=== PATIENT | female | born 1975 | race Caucasian/White ===

== ENCOUNTER 2019-03-06 10:33 | Emergency (ER) | payer MEDICAID, SELFPAY ==
[2019-03-06 10:35] VITALS: BP 105/87; PULSE 90; RESP 17; TEMP 36.6; O2SAT 100; BMI 30.9
--- NOTE | 2019-03-06 10:36 | ED_ITS ---
HPI - Extremity Injury (Upper) General: Chief Complaint: Extremity Problem,Nontraumatic Stated Complaint: Left elbow pain Time Seen by Provider: 03/06/19 10:46 History of Present Illness: HPI narrative: Patient comes in for concerns to due to swelling on the left elbow. Patient was supposed to see Dr. Sam but ended up have to be committed for 48 hours due to a related drug charge. Patient does report history of problems with IV drug use. Patient is routinely cared by behavioral health counseling, and is routinely treated for hypertension along with her mental disorder. Review of Systems General: Reports: 10 or more systems reviewed and unremarkable except in HPI and below Musc: Reports: joint swelling PFSH ED PFSH: Statuses (acute, chronic, etc) shown below reflect problem list status as previously entered and may not be historically accurate Social History Smoking and tobacco status: current every day smoker Physical Exam Const: COMMON NORMALS: no apparent distress and oriented x3 GENERAL APPEARANCE: cooperative HENMT: COMMON NORMALS: normocephalic, external ears normal, EAC's normal, TM's normal bilaterally and external nose normal HEAD & SCALP: normal to inspection and normocephalic FACE & SINUS: normal facial exam NOSE: external nose normal GENERAL EAR: hearing not grossly impaired EXTERNAL EAR: Yes external ears normal EXTERNAL AUDITORY CANAL: EAC's normal TYMPANIC MEMBRANE: TM's normal bilaterally MOUTH: oral and palatal mucosa normal THROAT: posterior oropharynx normal Eye: COMMON NORMALS: PERRL and EOMs intact bilaterally PUPIL: Yes PERRL Neck/C-Spine: COMMON NORMALS: full ROM and no lymphadenopathy Lymph: LYMPHATIC: no lymphedema noted Chest: COMMONS NORMALS: inspection of chest normal and palpation of chest normal Resp: COMMON NORMALS: normal respiratory effort and clear to auscultation bilaterally AUSCULTATION: clear to auscultation bilaterally Cardio: COMMON NORMALS: regular rate and regular rhythm RATE: regular rate RHYTHM: regular rhythm GI: COMMON NORMALS: normal to inspection, nondistended, normoactive bowel sounds and non-tender : COMMON NORMALS: Yes no CVA tenderness BLADDER/KIDNEY EXAM: Yes no CVA tenderness Back/Pelvis: COMMON NORMALS: no CVA tenderness and thoracic and lumbar spine normal to inspection Extremity: COMMON NORMALS: full ROM LEFT UPPER EXTREMITY: Yes elbow joint (olecranon swelling) Neuro: COMMON NORMALS: oriented x3, moves all extremities and no focal motor deficits Psych: COMMON NORMALS: mental status grossly normal and cooperative Skin: COMMON NORMALS: no rashes or lesions noted GENERAL SKIN EXAM: no rashes or lesions noted Procedures Bursa Procedures Side of body: left Site of Procedure: olecranon bursa Antisepsis Used: Chlorhexidine Local Anesthetic: lidocaine 1% Amount of anesthesia used (mL): 1 Fluid obtained (mL): 10 Fluid Type: bloody Patient Tolerated Procedure: well Complications: localized bleeding Course Vital Signs: Vital signs: Vital Signs Temperature 97.8 F 03/06/19 10:35 Pulse Rate 90 03/06/19 10:35 Respiratory Rate 17 03/06/19 10:35 Blood Pressure 105/87 03/06/19 10:35 Pulse Oximetry 94 03/06/19 10:51 MDM - Extremity Injury (Upper) MDM Narrative: Medical decision making narrative: Patient comes in today with complaints of a swelling to the left elbow area. Patient reports hitting her e lbow about 2 weeks ago and had had persistent bursal swelling to the elbow since then. Patient denies any problems with range of motion or strength to the arm. Exam noted to olecranon bursal swelling. No redness no inflammation is noted. Differential diagnosis includes olecranon bursitis, traumatic bursitis, infectious bursitis, septic arthritis. Area was cleaned and then a aspiration of the bursal sac was performed with noticeable bloody tinged fluid. Patient tolerated procedure well recommended Bactrim twice a day for the next 10 days to cover for infection. Recommend monitoring for worsening signs and symptoms and follow-up with primary care as needed. Patient reports understanding agreed to plan. Discharge Plan Discharge Patient Disposition: Home, Self-Care Clinical Impression: Olecranon bursitis of left elbow Condition: Stable Prescriptions: New sulfamethoxazole-trimethoprim [Bactrim DS] 800-160 mg tablet 1 tab PO BID 10 Days Qty: 20 RF: 0 Discharge Orders: Discharge Order (Routine); Ordered 03/06/19 Ordered By: Tay Zhong Referrals: Rita Cobos, RETREAD OPERATOR [Primary Care Provider] - Discharge Diet: Usual diet Discharge Activity: Resume usual activity Activity Restrictions/Additional Instructions: Keep light pressure dressing to area until swelling resolves Light activity to the arm Acetaminophen and ibuprofen for pain Follow-up with primary care in one week Return to ER for high fever, increasing pain and swelling Coding Level of Care Code ED Evening Sitter for Josephine Rehman Exam Problem Focused
[2019-03-06] MEDS: lidocaine 1% INJ 20 mL INTRADERMA (10:50)
[2019-03-06 10:51] VITALS: O2SAT 94
--- NOTE | 2019-03-06 11:07 | ED_ITS ---
HPI - Extremity Problem General: Chief complaint: Extremity Problem,Nontraumatic Stated complaint: Left elbow pain Time Seen by Provider: 03/06/19 10:46 PFSH ED PFSH: Statuses (acute, chronic, etc) shown below reflect problem list status as previously entered and may not be historically accurate Social History Smoking and tobacco status: current every day smoker Female Reproductive History: Date of last menstrual period: 03/06/19 Course Vital Signs: Vital signs: Vital Signs Temperature 97.8 F 03/06/19 10:35 Pulse Rate 90 03/06/19 10:35 Respiratory Rate 17 03/06/19 10:35 Blood Pressure 105/87 03/06/19 10:35 Pulse Oximetry 94 03/06/19 10:51 Discharge Plan Discharge Patient Disposition: Home, Self-Care Clinical Impression: Olecranon bursitis of left elbow Condition: Stable Prescriptions: New Bactrim DS 800-160 mg tablet 1 tab PO BID 10 Days Qty: 20 RF: 0 Discharge Orders: Discharge Order (Routine); Ordered 03/06/19 Ordered By: Tay Zhong Referrals: Rita Cobos APN [Primary Care Provider] - Discharge Diet: Usual diet Discharge Activity: Resume usual activity Activity Restrictions/Additional Instructions: Keep light pressure dressing to area until swelling resolves Light activity to the arm Acetaminophen and ibuprofen for pain Follow-up with primary care in one week Return to ER for high fever, increasing pain and swelling Coding Level of Care Code ED Client Experience Consultant for Josephine Rehman
[2019-03-06 11:15] VITALS: BP 106/74; PULSE 90; RESP 16; O2SAT 99
== END 2019-03-06 11:18 | disposition home or self-care (01) ==
LOC: ER 03-26 12:00
PROVIDERS: Emergency Provider Nurse Practitioner Family; Family Provider Nurse Practitioner; PCP Nurse Practitioner
DX: M70.22 Olecranon bursitis, left elbow (principal); F17.210 Nicotine dependence, cigarettes, uncomplicated
CPT/HCPCS: 20605; 96372; 99281; J2001

== ENCOUNTER 2019-03-14 20:09 | Emergency (ER) | payer MEDICAID, SELFPAY ==
[2019-03-14] VITALS (9 sets, daily range): BP systolic 116–137; BP diastolic 83–98; PULSE 96–110; RESP 17–25; TEMP 36.7–36.9; O2SAT 96–98; BMI 29.2
--- NOTE | 2019-03-14 21:52 | ED_ITS ---
Entered by Yoselyn Castro, acting as scribe for Olegario Delgado DO Mar 14, 2019 20:09 HPI - General Adult General: Chief complaint: General Medical Stated complaint: L ARM HEMATOMA Time Seen by Provider: 03/14/19 20:12 Source: patient Mode of arrival: ambulatory Limitations: no limitations History of Present Illness: HPI narrative: 43 yo Female presents to ED with complaint of hematoma to left elbow. Pt states that it started about a month and a half ago. Pt states that it has been bigger. Pt states that she had it drained the other day and it was just blood and no infection. Pt states that the blood just came right back. Pt states that there is a dull pain in her elbow. MD complaint: Hematoma to left elbow Location: upper extremity (left elbow) Radiation: non-radiation Quality: dull Pain Consistency: constant Relieving factors: none Exacerbating factors: none Associated symptoms: Reports no associated symptoms; Deny chest pain, dyspnea, headache(s), nausea, rash, palpitations or vomiting Review of Systems General: Reports: 10 or more systems reviewed and unremarkable except in HPI and below Const: Denies: fever, chills or body aches Eyes: Denies: change in vision, blurry vision or blind spots ENMT: Denies: throat pain, enlarged tonsils, painful swallowing, hoarseness or mouth pain Card: Denies: chest pain, palpitations, irregular heart rhythm, edema or swelling of feet/ankles Resp: Denies: shortness of breath, productive cough or non-productive cough GI: Denies: abdominal pain, nausea or vomiting : Denies: flank pain, difficulty urinating, painful urination, urinary frequency or urinary urgency Musc: Reports: extremity pain (hematoma to left elbow) and extremity swelling; Denies: neck pain or back pain Skin/Breast: Denies: rash, itching or redness Neuro: Denies: headache, numbness in extremities or weakness in extremities Endo: Denies: excessive urination, excessive thirst or tired all the time PFSH ED PFSH: Statuses (acute, chronic, etc) shown below reflect problem list status as previously entered and may not be historically accurate Social History Smoking and tobacco status: current every day smoker Female Reproductive History: Date of last menstrual period: 03/06/19 Physical Exam Const: COMMON NORMALS: no apparent distress, average body habitus, oriented x3, no limitations, healthy appearing, alert and well nourished HENMT: COMMON NORMALS: normocephalic, head/scalp atraumatic, hearing grossly normal bilaterally, external ears normal, EAC's normal, TM's normal bilaterally, external nose normal, nasal mucous membranes and turbinates normal, moist oral mucous membranes, oropharynx normal, dentition normal and gingiva normal HEAD & SCALP: normocephalic and atraumatic NOSE: external nose normal and nasal mucous membranes and turbinates normal EXTERNAL EAR: Yes external ears normal EXTERNAL AUDITORY CANAL: EAC's normal TYMPANIC MEMBRANE: TM's normal bilaterally Eye: COMMON NORMALS: PERRL, EOMs intact bilaterally, conjunctivae normal, no scleral icterus, no papilledema, normal visual woods by confrontation and fundi normal bilaterally CONJUNCTIVA: Yes conjunctivae normal PUPIL: Yes PERRL DIRECT OPHTHALMOSCOPY: Yes no papilledema and Yes fundi normal bilaterally Neck/C-Spine: COMMON NORMALS: full ROM, no lymphadenopathy, supple, no meningeal signs, no JVD, thyroid normal and no carotid bruits THYROID: thyroid normal Chest: COMMONS NORMALS: inspection of chest normal and palpation of chest normal Resp: COMMON NORMALS: normal respiratory effort, no retractions, no use of accessory muscles, clear to auscultation bilaterally and percussion normal AUSCULTATION: clear to auscultation bilaterally PERCUSSION: percussion normal Cardio: COMMON NORMALS: no JVD, regular rate, regular rhythm, S1 normal heart sound, S2 normal heart sound, no gallops, no clicks, no murmurs, no rub and peripheral pulses 2+ throughout RATE: regular rate RHYTHM: regular rhythm HEART SOUNDS: S1 normal and S2 normal PERIPHERAL PULSES: pulses 2+ throughout GI: COMMON NORMALS: normal to inspection, nondistended, normoactive bowel sounds, soft to palpation, non-tender, no hepatosplenomegaly, no masses and no bruits PALPATION: Yes soft and Yes no hepatosplenomegaly : COMMON NORMALS: Yes no CVA tenderness and Yes external appearance normal BLADDER/KIDNEY EXAM: Yes no CVA tenderness Back/Pelvis: COMMON NORMALS: no CVA tenderness, thoracic and lumbar spine normal to inspection, no thoracic nor lumbar tenderness, thoraco-lumbar ROM normal and straight leg raise negative bilaterally Extremity: COMMON NORMALS: normal to inspection, full ROM, normal capillary refill, no joint enlargement, no clubbing, cyanosis or edema, no calf tenderness and no pedal edema Neuro: COMMON NORMALS: oriented x3 SENSORIUM/ORIENTATION: Yes alert MENINGEAL SIGNS: Yes no meningeal signs Skin: COMMON NORMALS: no rashes or lesions noted, no wounds, skin turgor normal, no jaundice, no petechiae and no mottling GENERAL SKIN EXAM: no rashes or lesions noted and turgor normal Procedures Joint Aspiration/Injection Joint Asp./Inject. 1: Side of body: left Joint Aspirated: elbow Ultrasound Guidance: No Skin Prep: Povidone-Iodine1% Local Anesthetic: lidocaine 1% Amount of anesthesia used (mL): 0.5 Needle Size Used: 18G Fluid Obtained: bloody Total fluid obtained (mL): 10 Medication Injected, if any: Lidocaine Patient Tolerated Procedure: well Complications: none Course Vital Signs: Vital signs: Vital Signs Temperature 98.0 F 03/14/19 20:51 Pulse Rate 102 H 03/14/19 22:20 Respiratory Rate 25 H 03/14/19 22:20 Blood Pressure 116/83 03/14/19 22:20 Pulse Oximetry 97 03/14/19 22:20 Discharge Plan Discharge Patient Disposition: Home, Self-Care Condition: Stable Prescriptions: No Action Bactrim DS 800-160 mg tablet 1 tab PO BID 10 Days Qty: 20 RF: 0 Discharge Orders: Discharge Order (Routine); Ordered 03/14/19 Ordered By: Olegario Delgado Referrals: Rita Cobos APN [Primary Care Provider] - Discharge Diet: Usual diet Discharge Activity: Resume usual activity Coding Level of Care Code ED Inspector Optical Instrument for Chg Fwd Exam Problem Focused The documentation recorded by the Gloria wilde Carmen, accurately reflects the service I personally performed and the decisions made by Danny parish Donald P, DO Mar 14, 2019 20:09
--- NOTE | 2019-03-14 22:20 | PC.NURSE ---
pt reports falling on rubber mat back in october. now with hematoma on left elbow has had drained recently
--- NOTE | 2019-03-16 10:10 | DCPLANNER ---
national facilities manager had message to schedule a follow up appointment for patient with ortho. national facilities manager called the ortho clinic, spoke with Jaclyn, gave clinic patients information. national facilities manager was told that patients information would be printed and reviewed. Clinic will call case manager specialist and patient with appointment information.
--- NOTE | 2019-03-17 11:41 | DCPLANNER ---
Patient has a follow up appointment scheduled for Monday, March 18, 2019 at 1:[address] Kate. Clinic will contact patient with appointment information.
--- NOTE | 2019-03-20 15:45 | DCPLANNER ---
Patient did attend appointment scheduled for 12.17.19 with ortho.
== END 2019-03-14 22:48 | disposition home or self-care (01) ==
PROVIDERS: Emergency Provider Family Medicine; Family Provider Nurse Practitioner; PCP Nurse Practitioner
DX: S50.02XA Contusion of left elbow, initial encounter (principal); F17.210 Nicotine dependence, cigarettes, uncomplicated; X58.XXXA Exposure to other specified factors, initial encounter
CPT/HCPCS: 20605; 99281; J2001

== ENCOUNTER → 2019-04-09 06:23 | Day surgery (SDC) | payer MEDICAID, SELFPAY ==
[2019-04-08 16:18] VITALS: BMI 34.3
--- NOTE | 2019-04-08 17:02 | SUR.PREOP ---
THIS NURSE CALLED PATIENT REGARDING THE NEED FOR [facility] REFERRAL AND GAVE PATIENT THE [facility] NUMBER. PATIENT STATED SHE HAS BEEN GOING TO [facility] A PATIENT SINCE 1991. SHE ALSO STATED THAT SHE DID NOT WANT THE CRISIS NUMBER THAT SHE ALREADY HAD IT. SHE ALSO STATED THAT SHE DID NOT HAVE THE DESIRE TO TODAY THAT SHE HAS JUST BEEN HAVING DOWN FEELINGS BUT SHE WOULD PULL THROUGH
[2019-04-09] MEDS: sodium chloride 0.9% 1,000 ML 30 ML IV (06:52)
[2019-04-09 06:56] VITALS: BP 104/74; PULSE 104; RESP 16; TEMP 36.7
--- NOTE | 2019-04-09 07:01 | ANES.PREANE2 ---
Pre-Anesthetic Assessment Pre-Anesthetic Assessment: Height/Weight: Height 1.63 m Weight 90.718 kg Temp Pulse Resp BP 98.0 F 104 H 16 104/74 04/09/19 06:56 04/09/19 06:56 04/09/19 06:56 04/09/19 06:56 Preop Diagnosis: left olecranon bursitis Proposed Procedure: Operation Date: 04/09/19 10:00 Proposed Procedures p Excision Mass/Lesion Upper Extremity 88896 M70.22 elbow(Left) - Jonas Kate DO Last intake: Intake Last Liquid Date 04/09/19 Last Liquid Time 00:00 Last Solid Date 04/09/19 Last Solid Time 00:00 Social: Comment: e-cigs Exam: Pre-Anes Outpt Exam: alert, oriented x 3, clear to auscultation bilaterally and regular rate & rhythm Airway: Dentition: Loose Additional comments: poor CV/HEM: CV/HEM: HTN GI: GI: GERD Neuropsych: Comments: hx meth abuse, last 1 week ago Anesthetic Plan: ASA status: 3 Anesthesia: General Meds/Allergies Current Medications: Current Medications Generic Name Dose Route Start Last Admin Trade Name Freq PRN Reason Stop Dose Admin Sodium Chloride 1,000 mls @ 30 ml s/hr 04/09/19 05:45 04/09/19 06:52 Sodium Chloride 0.9% IV 04/10/19 05:44 30 mls/hr .Q24H KEVIN Administration PFSH Anesthesia PFSH: Medical History (Updated 04/08/19 @ 16:17 by Sommer Medellin RN) Olecranon bursitis, left elbow Social History (Updated 04/08/19 @ 16:18 by Sommer Medellin RN) Smoking and tobacco status: current every day smoker Female Reproductive History: Date of last menstrual period: 03/06/19 Data Anesthesia Cardiac Studies: No Data to Display
[2019-04-09 07:02] LABS: OR HCG Qualitative Urine Negative (Negative)
[2019-04-09 07:08] LABS: Amphetamines Screen Urine Positive (Negative); Barbiturates Screen Urine Negative (Negative); Benzodiazepines Screen Urine Positive (Negative); Cocaine Screen Urine Negative (Negative); Opiate Screen Urine Negative (Negative); PCP Screen Urine Negative (Negative); THC Screen Urine Positive (Negative)
--- NOTE | 2019-04-09 07:14 | SUR.PREOP ---
SURGERY CANCELLED PER DR. HORAN D/T URINE DRUG SCREEN BEING POSITIVE FOR DRUGS. SEE LAB RESULTS. IV REMOVED, ASYMPTOMATIC, PATIENT WALKED OUT AT THIS TIME
--- NOTE | 2019-04-09 07:29 | PM.HPUD ---
H&P update H&P Update: DATE OF SURGERY/PROCEDURE: 04/09/19 DATE H&P PERFORMED: 03/18/19 PREOP DIAGNOSIS: left olecranon bursitis PLANNED PROCEDURE: Operation Date: 04/09/19 10:00 Proposed Procedures p Excision Mass/Lesion Upper Extremity 71955 M70.22 elbow(Left) - Jonas Kate DO Full H&P Medications/Allergies: Current Medications: Current Medications Generic Name Dose Route Start Last Admin Trade Name Zachariahq PRN Reason Stop Dose Admin Sodium Chloride 1,000 mls @ 30 ml s/hr 04/09/19 05:45 04/09/19 07:13 Sodium Chloride 0.9% IV 04/10/19 05:44 Infused .Q24H KEVIN Infusion Perinent History: Medical/Surgical History: Medical History (Updated 03/22/19 @ 16:05 by Jonas Kate DO) Olecranon bursitis, left elbow Social History: Social History Smoking and tobacco status: current every day smoker A&P Assessment and plan (1) Olecranon bursitis, left elbow: Patient arrived late to outpatient surgery suite. Patient was unsteady gait. Nursing staff was concerned that the patient may be under the influence of illicit medications. Urine drug screen was performed. The nurses report that the urine specimen was cool concern of the patient may have diluted her own urine using tap water. Despite potential tampering the drug screen came back positive for marijuana, benzodiazepines and methamphetamines. Patient surgery was canceled. Status: Acute Code(s): M70.22 - Olecranon bursitis, left elbow (2) Substance abuse: Status: Acute Code(s): F19.10 - Other psychoactive substance abuse, uncomplicated
== END ==
PROVIDERS: Family Provider Nurse Practitioner; PCP Nurse Practitioner; Visit Provider Orthopaedic Surgery
DX: Z53.8 Procedure and treatment not carried out for other reasons (principal); M70.22 Olecranon bursitis, left elbow
CPT/HCPCS: 12345; 80307; 81025; 84703; J7030

== ENCOUNTER 2019-10-24 14:54 | Emergency (ER) | payer SELFPAY ==
[2019-10-24 15:19] VITALS: BP 128/78; PULSE 95; RESP 16; TEMP 36.8; O2SAT 99; BMI 30.9
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
[2019-10-24 17:48] LABS: Add Urine Microscopic? NO
[2019-10-24 17:51] LABS: HCG, Serum Qual Negative (Negative)
[2019-10-24 17:57] LABS: Bilirubin Urine Neg (NEGATIVE); Blood Urine Neg (Negative); Glucose Urine UA Norm (Normal); Ketones Urine 1+ (Negative); Leukocyte Esterase Urine Negative (Negative); Nitrate Urine Negative (Negative); Protein Urine Neg (Negative); Urine Appearance Clear (CLEAR); Urine Color Yellow (Yellow); Urobilinogen Urine Norm (Negative); pH Urine 6 (5-7)
[2019-10-24 18:17] LABS: Basophils % 0.5 %; Eosinophils # 0.2 10^3/uL (0.0-0.8); Eosinophils % 2.5 %; Hemoglobin 12.5 g/dL (11.5-15.3); Lymphocytes # 2.6 10^3/uL (0.8-4.8); Lymphocytes % 34.2 %; Mean Corpuscular HGB Conc 32.9 g/dL (30.0-36.0); Mean Corpuscular Hemoglobin 32.2 pg (28.0-34.0); Mean Corpuscular Volume 97.9 fL (81-99); Mean Platelet Volume 9.3 fL (7.4-10.4); Monocytes # 0.6 10^3/uL (0.2-0.9); Monocytes % 7.3 %; Neutrophils # 4.18 10^3/uL (1.8-7.7); Neutrophils % 55.4 %; Nucleated Red Blood Cells % 0 %; Platelet Count 276 10^3/cmm (130-400); Red Blood Count 3.88 10^6/uL (4.1-5.3); Red Cell Distribution Width 12.8 % (12.1-15.1); White Blood Count 7.6 10^3/uL (4.0-10.0)
[2019-10-24 18:34] LABS: Alanine Aminotransferase 8 U/L (0-33); Alkaline Phosphatase 65 IU/L (35-105); Aspartate Amino Transferase 16 U/L (0-32); Blood Urea Nitrogen 19 mg/dL (6-20); Calcium 9.5 mg/dL (8.5-10.5); Carbon Dioxide 30 mmol/L (22-29); Chloride 100 mmol/L (98-107); Creatinine Clr Calc Pharmacy 108.2219; Globulin 2.8 g/dL (1.3-4.6); Glomerular Filtration Rate 91.8 mL/min (90-130); Glucose 110 mg/dL (65-115); Osmolality Calculated 279 mOsm/kg (285-295); Sodium 136 mmol/L (136-145); Total Bilirubin 0.2 mg/dL (0.15-1.2); Total Protein 6.8 g/dL (6.6-8.7)
--- NOTE | 2019-10-24 18:38 | XR_ITS ---
WS: [id number] LUMBAR SPINE: 3 VIEWS TECHNIQUE: AP, lateral and L5-S1 spot. HISTORY: back pain COMPARISON: None available. Normal posterior alignment. Mild spondylitic changes. No lumbar spine fracture. There is very minimal anterior wedging of T10 and T11. No loss of disc space or vertebral body height. SI joints are symmetric bilaterally. No soft tissue abnormalities. Numerous gallstones are present in the RIGHT upper quadrant. XR/XR lumbar spine 2-3V* [id number] IMPRESSION: 1. Extensive cholelithiasis. 2. Mild spondylosis with no acute fracture.
[2019-10-24 20:26] VITALS: BP 138/94
== END 2019-10-24 20:33 | disposition home or self-care (01) ==
PROVIDERS: Family Medicine; Physician Assistant; Emergency Provider Emergency Medicine; PCP Nurse Practitioner
DX: G89.29 Other chronic pain (principal); M54.5 Low back pain; Z79.82 Long term (current) use of aspirin; F17.210 Nicotine dependence, cigarettes, uncomplicated
CPT/HCPCS: 12345; 36415; 72100; 80053; 81003; 84703; 85025; 99282; 99283

== ENCOUNTER 2020-04-30 10:20 | Emergency (ER) | payer SELFPAY ==
[2020-04-30 10:22] VITALS: BP 103/71; PULSE 113; RESP 18; TEMP 36.3; O2SAT 100; BMI 34.3
[2020-04-30 10:31] VITALS: RESP 16
[2020-04-30] MEDS: ketorolac 30 mg/mL INJ IVP (10:57)
[2020-04-30] MEDS: orphenadrine 30 mg/mL Inj 2 mL 60 MG IVP (10:57)
--- NOTE | 2020-04-30 11:00 | ED_ITS ---
HPI - Back Pain/Injury General: Chief Complaint: Back Pain/Injury Stated Complaint: Back Pain Time Seen by Provider: 04/30/20 10:27 History of Present Illness: HPI Narrative: 44-year-old female presents emergency room with complaint of back pain with pain into her right leg. She said this for some time she denies any difficulty bowel or bladder. She not had any particular trauma recently she relates this is going back months and years. No recent falls or injury she has had remote injuries in the past. Denies dysuria dysuria frequency fever sweats chills cough shortness of breath. MD elicited complaint: back pain Pertinent past history: prior back pain Onset (ago): day(s) Timing: intermittent and progressively worsening Severity: moderate Similar Symptoms Previously: Yes Quality: sharp and spasming Location: lumbar spine Radiation: right upper leg and right leg below the knee Exacerbating factors: movement and walking Relieving factors: supine Context: turning/twisting and bending Associated symptoms: Reports arthralgias, difficulty walking, myalgias, numbness and tingling/numbness/burning; Deny abdominal pain, chills, change in bowel habits, dysuria, fatigue, fecal incontinence, fever(s), hematuria, nausea, syncope, urinary frequency, urinary urgency, vomiting or weakness Review of Systems Const: Denies: fever(s), chills or fatigue ENMT: Denies: throat pain, ear or mastoid pain, nasal discharge or nasal congestion Card: Denies: syncope Resp: Denies: dyspnea, productive cough or non-productive cough GI: Denies: abdominal pain, nausea, vomiting, fecal incontinence or change in bowel habits : Denies: dysuria, urinary urgency or hematuria Skin/Breast: Denies: rash or pruritus Neuro: Reports: difficulty walking [facility] ED PFSH: Medical History (Updated 04/30/20 @ 11:44 by Dillon Crenshaw DO) Olecranon bursitis, left elbow Substance abuse Social History Smoking and tobacco status: current every day smoker Alcohol intake: never Female Reproductive History: Date of last menstrual period: 03/06/19 Physical Exam Const: COMMON NORMALS: no acute distress GENERAL APPEARANCE: cooperative and comfortable ORIENTATION/CONSCIOUSNESS: Yes awake, Yes oriented to person, Yes oriented to place and Yes oriented to time HENMT: COMMON NORMALS: normocephalic, atraumatic and hearing grossly normal bilaterally HEAD & SCALP: normocephalic and atraumatic Neck/C-Spine: COMMON NORMALS: no JVD Resp: COMMON NORMALS: normal respiratory effort, No retractions, No use of accessory muscles and clear to auscultation bilaterally AUSCULTATION: clear to auscultation bilaterally Cardio: COMMON NORMALS: no JVD, regular rate, regular rhythm and No murmurs present (Cardio) RATE: regular rate RHYTHM: regular rhythm GI: COMMON NORMALS: Soft to palpation and No hepatosplenomegaly present AUSCULTATION: Yes normoactive bowel sounds PALPATION: Yes Soft to palpation, No Tenderness to palpation present (GI), No Guarding due to palpation present (GI) and Yes No hepatosplenomegaly present Extremity: COMMON NORMALS: normal to inspection, capillary refill normal, no clubbing, cyanosis or edema, no calf tenderness and no pedal edema NARRATIVE EXTREMITY EXAM: Dorsal/plantar strength 5/5 straight leg raising negative deep tendon reflex at the patella bilaterally +2/4 Neuro: SENSORIUM/ORIENTATION: Yes oriented to person, Yes oriented to place and Yes oriented to time Skin: COMMON NORMALS: no rashes or lesions noted GENERAL SKIN EXAM: no rashes or lesions noted Course Vital Signs: Vital signs: Vital Signs Temperature 97.3 F L 04/30/20 10:22 Pulse Rate 94 04/30/20 11:49 Respiratory Rate 16 04/30/20 11:49 Blood Pressure 105/66 04/30/20 11:49 Pulse Oximetry 98 04/30/20 11:49 MDM - Back Pain/Injury MDM Narrative: Medical decision making narrative: Patient is feeling somewhat better discussed with her I think at some point she may need some advanced im aging. We will discharge her home with anti-inflammatories steroids and muscle relaxers return to her primary care doctor early next week for reevaluation for possible advanced imaging. If his pain or symptoms worsen return to the emergency room. Discharge Plan Discharge Patient Disposition: Home Clinical Impression: Strain of lumbar region, Lumbar radiculopathy Condition: Stable Prescriptions: New diclofenac sodium 75 mg tablet,delayed release (DR/EC) 75 mg PO Q12H PRN (Reason: pain) Qty: 20 RF: 0 Medrol (Kain) 4 mg tablets,dose pack See Rx Instructions .ROUTE .COMPLEX Qty: 21 RF: 0 tizanidine 4 mg capsule 4 mg PO Q12H PRN (Reason: muscle spasticity) Qty: 20 RF: 0 No Action fluoxetine [Prozac] 40 mg capsule 40 mg PO QAM RF: 0 hydrochlorothiazide 50 mg Tablet 50 mg PO DAILY PRN (Reason: Edema) RF: 0 Aspir-81 81 mg Tablet,Delayed Release (Dr/Ec) 81 mg PO DAILY RF: 0 ibuprofen 200 mg Tablet 600 mg PO PRN RF: 0 lisinopril 5 mg Tablet 5 mg PO DAILY RF: 0 Keto Pills 1 tab PO BID RF: 0 [place] 7.5-325 mg tablet 1 tab PO Q6H PRN (Reason: pain) Qty: 7 RF: 0 Medrol (Kain) 4 mg tablets,dose pack See Rx Instructions .ROUTE .COMPLEX Qty: 21 RF: 0 Discharge Orders: Discharge ED (Routine); Ordered 04/30/20 Ordered By: Dillon Crenshaw Referrals: Rita Cobos APN [Primary Care Provider] - Discharge Diet: Usual diet Discharge Activity: Limit activity as instructed Patient Instructions: Opioid Safety Activity Restrictions/Additional Instructions: Office your primary care provider for further evaluation including possible advanced imaging Coding Level of Care Code ED Gunner'S Mate for Josephine Fwjillian Exam Comprehensive
[2020-04-30 11:49] VITALS: BP 105/66; PULSE 94; RESP 16; O2SAT 98
== END 2020-04-30 11:49 | disposition home or self-care (01) ==
PROVIDERS: Emergency Provider Family Medicine; PCP Nurse Practitioner
DX: S39.012A Strain of muscle, fascia and tendon of lower back, initial encounter (principal); M54.16 Radiculopathy, lumbar region; X58.XXXA Exposure to other specified factors, initial encounter; Z79.82 Long term (current) use of aspirin; F17.210 Nicotine dependence, cigarettes, uncomplicated
CPT/HCPCS: 96374; 96375; 99283; J1885; J2360; J2930

== ENCOUNTER 2020-05-23 18:24 | Emergency (ER) | payer SELFPAY ==
[2020-05-23 18:37] VITALS: BP 143/95; PULSE 99; RESP 18; TEMP 36.5; O2SAT 98; BMI 32.5
[2020-05-23 20:03] LABS: Basophils % 0.3 %; Eosinophils # 0.2 10^3/uL (0.0-0.8); Eosinophils % 1.4 %; Hematocrit 38.1 % (37.0-47.0); Hemoglobin 12.5 g/dL (11.5-15.3); Lymphocytes # 1.4 10^3/uL (0.8-4.8); Lymphocytes % 11.7 %; Mean Corpuscular HGB Conc 32.8 g/dL (30.0-36.0); Mean Corpuscular Hemoglobin 32.5 pg (28.0-34.0); Mean Platelet Volume 8.9 fL (7.4-10.4); Monocytes # 0.7 10^3/uL (0.2-0.9); Monocytes % 6.1 %; Neutrophils # 9.41 10^3/uL (1.8-7.7); Neutrophils % 80.2 %; Nucleated Red Blood Cells % 0 %; Platelet Count 329 10^3/cmm (130-400); Red Blood Count 3.85 10^6/uL (4.1-5.3); Red Cell Distribution Width 12.5 % (12.1-15.1); White Blood Count 11.7 10^3/uL (4.0-10.0)
[2020-05-23 22:47] VITALS: BP 135/65; PULSE 89; RESP 18; O2SAT 100
--- NOTE | 2020-05-23 22:51 | ED_ITS ---
HPI - Wound/Laceration General: Chief Complaint: Wound/Laceration Stated Complaint: possible infection in foot Time Seen by Provider: 05/23/20 22:45 History of Present Illness: HPI narrative: Right toe with the redness and swelling pain after stepping on some thorns while wearing flip-flops other day. Onset (ago): day(s) Extremity Location: Right: foot Place: home Patient tetanus UTD: No Context: accidental Associated symptoms: Reports no associated symptoms; Denies chills, fever(s), nausea or vomiting Review of Systems Const: Denies: fever(s), chills or body aches Eyes: Denies: change in vision or blurry vision ENMT: Denies: throat pain or nasal congestion Card: Denies: chest pain or dyspnea on exertion Resp: Denies: dyspnea, productive cough or non-productive cough GI: Denies: abdominal pain, nausea or vomiting Musc: Denies: extremity pain Skin/Breast: Reports: erythema, skin tenderness and skin swelling (Obvious wound to underneath side of right toe plantar surface); Denies: rash Neuro: Denies: headache(s) Psych: Denies: anxiety or depression Mina/Lymph: Denies: easy bruising PFSH ED PFSH: Medical History (Updated 05/24/20 @ 00:09 by BRENDEN Chairez) Olecranon bursitis, left elbow Substance abuse Social History Smoking and tobacco status: current every day smoker Alcohol intake: never Female Reproductive History: Date of last menstrual period: 03/06/19 Physical Exam Const: COMMON NORMALS: no acute distress, average body habitus and patient oriented x3 HENMT: COMMON NORMALS: normocephalic HEAD & SCALP: normal to inspection and normocephalic FACE & SINUS: normal facial exam Eye: COMMON NORMALS: conjunctivae normal GENERAL EYE: appearance normal, both eyes and all related structures CONJUNCTIVA: Yes conjunctivae normal Neck/C-Spine: COMMON NORMALS: no JVD Chest: COMMONS NORMALS: normal inspection of the chest Resp: COMMON NORMALS: normal respiratory effort and clear to auscultation bilaterally AUSCULTATION: clear to auscultation bilaterally Cardio: COMMON NORMALS: no JVD, regular rate and regular rhythm RATE: regular rate RHYTHM: regular rhythm GI: COMMON NORMALS: Normal to inspection, nondistended, normoactive bowel sounds present Extremity: COMMON NORMALS: normal to inspection and full ROM Neuro: COMMON NORMALS: patient oriented x3 Skin: OTHER: Redness and swelling to right great toe with obvious wound underneath the toe turf area redness extending up to the arch somewhat no drainage noted redness extends over to #2 toe also very tender Procedures Abscess I/D Site: foot Side (if applicable): right Sedation/analgesia: none Technique: needle aspiration Amount of fluid expressed (mL): 0.1 Irrigation: No Packing used?: none Course Vital Signs: Vital signs: Vital Signs Temperature 97.7 F 05/23/20 18:37 Pulse Rate 82 05/24/20 00:49 Respiratory Rate 18 05/24/20 00:49 Blood Pressure 128/70 05/24/20 00:49 Pulse Oximetry 100 05/24/20 00:49 MDM - Wound/Laceration MDM Narrative: Medical decision making narrative: Use 18-gauge needle try to get some drainage -fluid from the wound -very minimal amount was obtained. No evidence of foreign body on x-ray ER examination. Wound culture was obtained. IV was not able to be established due to patient's prior methamphetamine use intravenously. Patient was directed follow-up primary care provider next day or two. Take medication as directed. Lab Data: Labs: Lab Results 05/23/20 Range/Units 19:50 WBC 11.7 H (4.0-10.0) 10^3/ uL RBC 3.85 L (4.1-5.3) 10^6/u L Hgb 12.5 (11.5-15.3) g/dL Hct 38.1 (37.0-47.0) % MCV 99.0 (81-99) fL MCH 32.5 (28.0-34.0) pg MCHC 32.8 (30.0-36.0) g/dL RDW 12.5 (12.1-15.1) % Plt Count 329 (130-400) 10^3/c mm MPV 8.9 (7.4-10.4) fL Neut % (Auto) 80.2 % Lymph % (Auto) 11.7 % Steele % (Auto) 6.1 % Eos % (Auto) 1.4 % Baso % (Auto) 0.3 % Neut # (Auto) 9.41 H (1.8-7.7) 10^3/u L Lymph # (Auto) 1.4 (0.8-4.8) 10^3/u L Steele # (Auto) 0.7 (0.2-0.9) 10^3/u L Eos # (Auto) 0.2 (0.0-0.8) 10^3/u L Baso # (Auto) 0.0 (0.0-0.1) 10^3/u L Nucleated RBC % (a uto) 0 % Nucleated RBCs # 0.0 /100WBC Discharge Plan Discharge Patient Disposition: Home Clinical Impression: Cellulitis and abscess of foot Condition: Stable Prescriptions: New levofloxacin 500 mg tablet 500 mg PO DAILY 7 Days RF: 0 hydrocodone-acetaminophen 5-325 mg tablet 1 tab PO TID PRN (Reason: pain) Qty: 10 RF: 0 No Action fluoxetine [Prozac] 40 mg capsule 40 mg PO QAM RF: 0 hydrochlorothiazide 50 mg Tablet 50 mg PO DAILY PRN (Reason: Edema) RF: 0 Aspir-81 81 mg Tablet,Delayed Release (Dr/Ec) 81 mg PO DAILY RF: 0 ibuprofen 200 mg Tablet 600 mg PO PRN RF: 0 lisinopril 5 mg Tablet 5 mg PO DAILY RF: 0 Keto Pills 1 tab PO BID RF: 0 Flora 7.5-325 mg tablet 1 tab PO Q6H PRN (Reason: pain) Qty: 7 RF: 0 Medrol (Kain) 4 mg tablets,dose pack See Rx Instructions .ROUTE .COMPLEX Qty: 21 RF: 0 diclofenac sodium 75 mg tablet,delayed release (DR/EC) 75 mg PO Q12H PRN (Reason: pain) Qty: 20 RF: 0 Medrol (Kain) 4 mg tablets,dose pack See Rx Instructions .ROUTE .COMPLEX Qty: 21 RF: 0 tizanidine 4 mg capsule 4 mg PO Q12H PRN (Reason: muscle spasticity) Qty: 20 RF: 0 Discharge Orders: Discharge ED (Routine); Ordered 05/24/20 Ordered By: Parminder Anton Referrals: Rita Cobos, SPORTS PHYSIOTHERAPIST [Primary Care Provider] - Discharge Diet: Usual diet Discharge Activity: Increase activity as tolerated Patient Instructions: Cellulitis (ED), Opioid Safety Activity Restrictions/Additional Instructions: Follow-up with medical provider as directed. Take medications as prescribed. Return to the ER or your medical provider if condition worsens. Please read and understand discharge instructions. If any questions ask please. Soak foot in Epson salts 3 times a day. Follow-up your family provider if no significant improvement. Have them contact laboratory for results of wound culture. Coding Level of Care Code ED Solar Energy Technician for Josephine Fwjillian Exam Comprehensive
--- NOTE | 2020-05-23 22:56 | XR_ITS ---
WS: [id number] RIGHT FOOT: 3 VIEW(S) TECHNIQUE: AP, oblique and lateral. HISTORY: cellulitis, stepped on thorn- great toe , soft tissue please COMPARISON: 10/27/2010 Single lateral projection is an osseous density over the talar neck which may be an osteophyte which has progressed since 2010. No history of trauma to support fracture. Tarsometatarsal alignment is normal. There is extensive soft tissue edema surrounding the foot, greatest over the first toe. XR/XR foot RT min 3V* [id number] IMPRESSION: 1. Moderate amount of soft tissue edema surrounding the foot, greatest on the plantar surface of the first toe. No foreign body. Consistent with cellulitis. 2. No acute fracture. Small osseous densities near the talus are probably rela iwona to an old injury as there is no history of an acute injury to support fract ure.
[2020-05-23] MEDS: tetanus-dipt-pertussis 0.5 mL SDV IM (22:58)
[2020-05-23] MEDS: HYDROcodone-acetaminophen 7.5-325 mg Tablet 1 TAB PO (22:58)
[2020-05-24] MEDS: levoFLOXacin 750 mg Tablet PO (00:45)
[2020-05-24 00:49] VITALS: BP 128/70; PULSE 82; RESP 18; O2SAT 100
== END 2020-05-24 00:51 | disposition home or self-care (01) ==
PROVIDERS: Emergency Medicine; Emergency Provider Nurse Practitioner Family; PCP Nurse Practitioner
DX: L02.611 Cutaneous abscess of right foot (principal); L03.115 Cellulitis of right lower limb; Z79.82 Long term (current) use of aspirin; F17.210 Nicotine dependence, cigarettes, uncomplicated; Z23 Encounter for immunization
CPT/HCPCS: 10160; 73630; 85025; 87070; 87077; 87186; 90471; 90715; 99283

== ENCOUNTER 2020-05-26 16:12 | Inpatient (IN) | payer SELFPAY ==
[2020-05-26 16:20] VITALS: BP 119/85; PULSE 106; RESP 18; TEMP 36.6; O2SAT 99; BMI 32.5
--- NOTE | 2020-05-26 16:46 | ED_ITS ---
HPI - Extremity Problem General: Chief complaint: Extremity Injury, Lower Stated complaint: Cellulitis Related Complications in Right Foot Time Seen by Provider: 05/26/20 16:29 History of Present Illness: HPI Narrative: Patient is a 44-year-old female with past medical history hypertension and former IV drug abuser using methamphetamine comes to the ER complaining of worsening right foot pain swelling and tenderness. She was seen here a few days ago and diagnosed with cellulitis and discharged with levofloxacin. A few days before that she stepped on a thorn through her sandals and clearly developed an infection from this. Today the erythema appears to be worse than her previous visit and is draining discharge. MD Complaint: extremity pain Pain Consistency: constant Location: right Quality: sharp Relieving factors: nothing Exacerbating factors: weight bearing Associated symptoms: Reports no associated symptoms; Deny chest pain or rash Review of Systems General: Reports: 10 or more systems reviewed and unremarkable except in HPI and below Const: Denies: fatigue Eyes: Denies: change in vision, blurry vision or eye redness ENMT: Denies: throat pain, swelling of lips/tongue, ear or mastoid pain or nasal congestion Card: Denies: chest pain, palpitations, irregular heart rhythm, edema, dyspnea on exertion or orthopnea Resp: Denies: dyspnea, productive cough or non-productive cough GI: Denies: abdominal pain, diarrhea or GI cramping : Denies: flank pain, difficulty voiding, urinary frequency or urinary urgency Musc: Denies: neck pain, back pain, extremity pain, joint pain, joint redness, limited range of motion or muscle weakness Skin/Breast: Reports: erythema; Denies: rash, pruritus, skin pain or skin tenderness Neuro: Denies: headache(s), numbness in extremities, weakness in extremities, sensory changes, difficulty walking, dizziness, confusion or Slurred speech present Psych: Denies: anxiety or depression Endo: Denies: polyuria All/Imm: Denies: urticaria, throat swelling or tongue swelling PFS ED PFSH: Medical History (Updated 05/26/20 @ 20:33 by Yusuf Villareal MD) Olecranon bursitis, left elbow Substance abuse Social History Smoking and tobacco status: current every day smoker Alcohol intake: never Female Reproductive History: Date of last menstrual period: 03/06/19 Physical Exam Const: COMMON NORMALS: no acute distress, average body habitus, patient oriented x3, no limitations, healthy appearing, alert and well nourished GENERAL APPEARANCE: cooperative, comfortable, well kempt and well developed ORIENTATION/CONSCIOUSNESS: Yes awake, Yes oriented to person, Yes oriented to place and Yes oriented to time HENMT: COMMON NORMALS: normocephalic, external ears normal and Normal external nose present HEAD & SCALP: normal to inspection and normocephalic NOSE: Normal external nose present EXTERNAL EAR: Yes external ears normal MOUTH: Normal oral and palatal mucosa present THROAT: posterior oropharynx normal Eye: COMMON NORMALS: Equal, round and reactive pupils present and EOMs intact bilaterally GENERAL EYE: appearance normal, both eyes and all related structures PUPIL: Yes Equal, round and reactive pupils present Neck/C-Spine: COMMON NORMALS: full ROM, no lymphadenopathy, no meningeal signs and no JVD GENERAL: Yes normal visual inspection Lymph: LYMPHATIC: no lymphadenopathy noted Chest: COMMONS NORMALS: normal inspection of the chest and normal palpation of entire chest wall Resp: COMMON NORMALS: normal respiratory effort, No retractions, No use of accessory muscles, clear to auscultation bilaterally and percussion normal EFFORT & INSPECTION: Yes able to speak in complete sentences AUSCULTATION: clear to auscultation bilaterally PERCUSSION: percussion normal Cardio: COMMON NORMALS: no JVD, regular rate, regular rhythm, S1 normal heart sound present, S2 normal heart sound present and Peripheral pulses 2+ throughout RATE: regular rate RHYTHM: regular rhythm HEART SOUNDS: S1 normal heart sound present and S2 normal heart sound present PERIPHERAL PULSES: Peripheral pulses 2+ throughout GI: COMMON NORMALS: Normal to inspection, nondistended, normoactive bowel sounds present, Soft to palpation, non-tender and no masses INSPECTION: Yes normal to inspection PALPATION: Yes Soft to palpation : COMMON NORMALS: Yes no CVA tenderness BLADDER/KIDNEY EXAM: Yes no CVA tenderness Back/Pelvis: COMMON NORMALS: no CVA tenderness, thoracic and lumbar spine normal to inspection, no thoracic nor lumbar tenderness and thoraco-lumbar ROM normal Extremity: COMMON NORMALS: normal to inspection, full ROM, capillary refill normal, no joint enlargement and no pedal edema GENERAL: Yes normal exam except as noted Neuro: COMMON NORMALS: patient oriented x3, CN's II-XII intact bilaterally, moves all extremities, no focal motor deficits, no sensory deficits noted and gait normal SENSORIUM/ORIENTATION: Yes alert, Yes oriented to person, Yes oriented to place and Yes oriented to time MENINGEAL SIGNS: Yes no meningeal signs Psych: COMMON NORMALS: mental status grossly normal, Normal thought process present, cooperative, normal affect and speech normal APPEARANCE: Yes well kempt ATTITUDE: Yes calm SPEECH: Yes normal speech THOUGHT PROCESS: Normal thought process present Skin: COMMON NORMALS: no rashes or lesions noted NARRATIVE SKIN EXAM: Right forefoot cellulitis worst at the plantar aspect of the forefoot and medial to the foot. There is some discharge coming out and surrounding cellulitis to the forefoot. Associated tenderness GENERAL SKIN EXAM: no rashes or lesions noted Course Vital Signs: Vital signs: Vital Signs Temperature 97.8 F 05/26/20 16:20 Pulse Rate 106 H 05/26/20 16:20 Respiratory Rate 18 05/26/20 16:20 Blood Pressure 119/85 05/26/20 16:20 Pulse Oximetry 99 05/26/20 16:20 MDM - Extremity (Nontraumatic) MDM Narrative: Medical decision making narrative: The patient came in with a right foot wound that is draining and has surrounding cellulitis. Likely abscess. White count 15. Lactic acid normal. She is tachycardic but also has a history of methamphetamine abuse. Drug screen negative for meth. She was given a liter of IV fluids and started on vancomycin. Culture grew MRSA from previous visit. Discussed with Dr. Barger who will likely take her for surgery in the morning. accepts for inpatient care. Hep panel and HIV pending. Lab Data: Labs: Lab Results 05/26/20 05/26/20 05/26/20 Range/Units 17:45 17:45 17:45 WBC 15.0 H (4.0-10.0) 10^3/ uL RBC 3.75 L (4.1-5.3) 10^6/u L Hgb 12.1 (11.5-15.3) g/dL Hct 36.2 L (37.0-47.0) % MCV 96.5 (81-99) fL MCH 32.3 (28.0-34.0) pg MCHC 33.4 (30.0-36.0) g/dL RDW 12.1 (12.1-15.1) % Plt Count 389 (130-400) 10^3/c mm MPV 9.0 (7.4-10.4) fL Neut % (Auto) 82.1 % Lymph % (Auto) 8.6 % Atkinson % (Auto) 7.6 % Eos % (Auto) 1.0 % Baso % (Auto) 0.3 % Neut # (Auto) 12.34 H (1.8-7.7) 10^3/u L Lymph # (Auto) 1.3 (0.8-4.8) 10^3/u L Atkinson # (Auto) 1.1 H (0.2-0.9) 10^3/u L Eos # (Auto) 0.2 (0.0-0.8) 10^3/u L Baso # (Auto) 0.1 (0.0-0.1) 10^3/u L Nucleated RBC % (a uto) 0 % Nucleated RBCs # 0.0 /100WBC Sodium 131 L (136-145) mmol/L Potassium 3.9 (3.5-5.1) mmol/L Chloride 93 L (98-107) mmol/L Carbon Dioxide 28 (22-29) mmol/L Anion Gap 13.9 (5-19) BUN 12 (6-20) mg/dL Creatinine 0.5 (0.5-0.9) mg/dL GFR Calculation 134.7 H (90-130) mL/min Glucose 105 (65-115) mg/dL Calculated Osmolal ity 272 L (285-295) mOsm/k g Lactate 1.3 (0.5-2.2) mmol/L Calcium 9.3 (8.5-10.5) mg/dL Total Bilirubin 0.3 (0.15-1.2) mg/dL AST 18 (0-32) U/L ALT 27 (0-33) U/L Alkaline Phosphata se 105 (35-105) IU/L Total Protein 6.9 (6.6-8.7) g/dL Albumin 3.6 (3.5-5.2) g/dL Globulin 3.3 (1.3-4.6) g/dL HCG, Qual (Negative) Urine Color (Yellow) Urine Appearance (CLEAR) Urine pH (5-7) Ur Specific Gravit y (1.005-1.030) Urine Protein (Negative) Urine Glucose (UA) (Normal) Urine Ketones (Negative) Urine Blood (Negative) Urine Nitrate (Negative) Urine Bilirubin (Negative) Urine Urobilinogen (Negative) mg/dL Ur Leukocyte Elysia ase (Negative) Urine RBC (0-2) /hpf Urine WBC (0-5) /hpf Ur Squamous Epith Cells (0-5) /hpf Amorphous Sediment Urine Bacteria (NONE) /hpf Urine Opiates Scre en (Negative) ng/mL Ur Barbiturates Sc reen (Negative) ng/mL Ur Phencyclidine S crn (Negative) ng/mL Ur Amphetamines Sc reen (Negative) ng/mL U Benzodiazepines Scrn (Negative) ng/mL Urine Cocaine Scre en (Negative) ng/mL U Marijuana (THC) Screen (Negative) ng/mL 05/26/20 05/26/20 05/26/20 Range/Units 17:54 18:15 18:15 WBC (4.0-10.0) 10^3/ uL RBC (4.1-5.3) 10^6/u L Hgb (11.5-15.3) g/dL Hct (37.0-47.0) % MCV (81-99) fL MCH (28.0-34.0) pg MCHC (30.0-36.0) g/dL RDW (12.1-15.1) % Plt Count (130-400) 10^3/c mm MPV (7.4-10.4) fL Neut % (Auto) % Lymph % (Auto) % Atkinson % (Auto) % Eos % (Auto) % Baso % (Auto) % Neut # (Auto) (1.8-7.7) 10^3/u L Lymph # (Auto) (0.8-4.8) 10^3/u L Atkinson # (Auto) (0.2-0.9) 10^3/u L Eos # (Auto) (0.0-0.8) 10^3/u L Baso # (Auto) (0.0-0.1) 10^3/u L Nucleated RBC % (a uto) % Nucleated RBCs # /100WBC Sodium (136-145) mmol/L Potassium (3.5-5.1) mmol/L Chloride (98-107) mmol/L Carbon Dioxide (22-29) mmol/L Anion Gap (5-19) BUN (6-20) mg/dL Creatinine (0.5-0.9) mg/dL GFR Calculation (90-130) mL/min Glucose (65-115) mg/dL Calculated Osmolal ity (285-295) mOsm/k g Lactate (0.5-2.2) mmol/L Calcium (8.5-10.5) mg/dL Total Bilirubin (0.15-1.2) mg/dL AST (0-32) U/L ALT (0-33) U/L Alkaline Phosphata se (35-105) IU/L Total Protein (6.6-8.7) g/dL Albumin (3.5-5.2) g/dL Globulin (1.3-4.6) g/dL HCG, Qual Negative Negative (Negative) Urine Color Other (Yellow) Urine Appearance Cloudy (CLEAR) Urine pH 7 (5-7) Ur Specific Gravit y 1.005 (1.005-1.030) Urine Protein 1+ H (Negative) Urine Glucose (UA) Norm (Normal) Urine Ketones Negative (Negative) Urine Blood 3+ H (Negative) Urine Nitrate Negative (Negative) Urine Bilirubin Neg (Negative) Urine Urobilinogen Norm (Negative) mg/dL Ur Leukocyte Elysia ase 1+ H (Negative) Urine RBC Too numerous to c nt H (0-2) /hpf Urine WBC 0-4 H (0-5) /hpf Ur Squamous Epith Cells 40-55 H (0-5) /hpf Amorphous Sediment Not Reportable Urine Bacteria 1+ H (NONE) /hpf Urine Opiates Scre en (Negative) ng/mL Ur Barbiturates Sc reen (Negative) ng/mL Ur Phencyclidine S crn (Negative) ng/mL Ur Amphetamines Sc reen (Negative) ng/mL U Benzodiazepines Scrn (Negative) ng/mL Urine Cocaine Scre en (Negative) ng/mL U Marijuana (THC) Screen (Negative) ng/mL 05/26/20 Range/Units 18:15 WBC (4.0-10.0) 10^3/ uL RBC (4.1-5.3) 10^6/u L Hgb (11.5-15.3) g/dL Hct (37.0-47.0) % MCV (81-99) fL MCH (28.0-34.0) pg MCHC (30.0-36.0) g/dL RDW (12.1-15.1) % Plt Count (130-400) 10^3/c mm MPV (7.4-10.4) fL Neut % (Auto) % Lymph % (Auto) % Atkinson % (Auto) % Eos % (Auto) % Baso % (Auto) % Neut # (Auto) (1.8-7.7) 10^3/u L Lymph # (Auto) (0.8-4.8) 10^3/u L Atkinson # (Auto) (0.2-0.9) 10^3/u L Eos # (Auto) (0.0-0.8) 10^3/u L Baso # (Auto) (0.0-0.1) 10^3/u L Nucleated RBC % (a uto) % Nucleated RBCs # /100WBC Sodium (136-145) mmol/L Potassium (3.5-5.1) mmol/L Chloride (98-107) mmol/L Carbon Dioxide (22-29) mmol/L Anion Gap (5-19) BUN (6-20) mg/dL Creatinine (0.5-0.9) mg/dL GFR Calculation (90-130) mL/min Glucose (65-115) mg/dL Calculated Osmolal ity (285-295) mOsm/k g Lactate (0.5-2.2) mmol/L Calcium (8.5-10.5) mg/dL Total Bilirubin (0.15-1.2) mg/dL AST (0-32) U/L ALT (0-33) U/L Alkaline Phosphata se (35-105) IU/L Total Protein (6.6-8.7) g/dL Albumin (3.5-5.2) g/dL Globulin (1.3-4.6) g/dL HCG, Qual (Negative) Urine Color (Yellow) Urine Appearance (CLEAR) Urine pH (5-7) Ur Specific Gravit y (1.005-1.030) Urine Protein (Negative) Urine Glucose (UA) (Normal) Urine Ketones (Negative) Urine Blood (Negative) Urine Nitrate (Negative) Urine Bilirubin (Negative) Urine Urobilinogen (Negative) mg/dL Ur Leukocyte Elysia ase (Negative) Urine RBC (0-2) /hpf Urine WBC (0-5) /hpf Ur Squamous Epith Cells (0-5) /hpf Amorphous Sediment Urine Bacteria (NONE) /hpf Urine Opiates Scre en Positive H (Negative) ng/mL Ur Barbiturates Sc reen Negative (Negative) ng/mL Ur Phencyclidine S crn Negative (Negative) ng/mL Ur Amphetamines Sc reen Negative (Negative) ng/mL U Benzodiazepines Scrn Negative (Negative) ng/mL Urine Cocaine Scre en Negative (Negative) ng/mL U Marijuana (THC) Screen Positive H (Negative) ng/mL Discharge Plan Discharge Patient Disposition: Admitted As Inpatient Clinical Impression: Abscess of foot Condition: Stable Coding Level of Care Code ED [employer] Supervisor for Josephine Fwjillian Exam Comprehensive
--- NOTE | 2020-05-26 18:02 | PC.NURSE ---
US guided IV started to right FA. Pt tolerated well. Blood drawn and sent to lab. Pt requesting Hep panel.
[2020-05-26 18:08] LABS: Basophils # 0.1 10^3/uL (0.0-0.1); Basophils % 0.3 %; Eosinophils # 0.2 10^3/uL (0.0-0.8); Hematocrit 36.2 % (37.0-47.0); Hemoglobin 12.1 g/dL (11.5-15.3); Lymphocytes # 1.3 10^3/uL (0.8-4.8); Lymphocytes % 8.6 %; Mean Corpuscular HGB Conc 33.4 g/dL (30.0-36.0); Mean Corpuscular Hemoglobin 32.3 pg (28.0-34.0); Mean Corpuscular Volume 96.5 fL (81-99); Monocytes # 1.1 10^3/uL (0.2-0.9); Monocytes % 7.6 %; Neutrophils # 12.34 10^3/uL (1.8-7.7); Neutrophils % 82.1 %; Nucleated Red Blood Cells % 0 %; Platelet Count 389 10^3/cmm (130-400); Red Blood Count 3.75 10^6/uL (4.1-5.3); Red Cell Distribution Width 12.1 % (12.1-15.1)
[2020-05-26] MEDS: morphine 4 mg/mL SDV 1 mL 2 MG IVP ×3 (18:17→22:47)
[2020-05-26] MEDS: sodium chloride 0.9% 1,000 ML 999 ML IV (18:19)
[2020-05-26] MEDS: vancomycin 1,000 MG in sodium chloride 0.9% 250 ML 250 MG IV (18:19)
[2020-05-26 18:27] LABS: Alanine Aminotransferase 27 U/L (0-33); Albumin Level 3.6 g/dL (3.5-5.2); Alkaline Phosphatase 105 IU/L (35-105); Anion Gap 13.9 (5-19); Aspartate Amino Transferase 18 U/L (0-32); Blood Urea Nitrogen 12 mg/dL (6-20); Calcium 9.3 mg/dL (8.5-10.5); Carbon Dioxide 28 mmol/L (22-29); Chloride 93 mmol/L (98-107); Globulin 3.3 g/dL (1.3-4.6); Glomerular Filtration Rate 134.7 mL/min (90-130); Glucose 105 mg/dL (65-115); Osmolality Calculated 272 mOsm/kg (285-295); Potassium 3.9 mmol/L (3.5-5.1); Sodium 131 mmol/L (136-145); Total Bilirubin 0.3 mg/dL (0.15-1.2); Total Protein 6.9 g/dL (6.6-8.7)
[2020-05-26 18:28] LABS: Lactate (Lactic Acid level) 1.3 mmol/L (0.5-2.2)
[2020-05-26 18:53] LABS: Amphetamines Screen Urine Negative (Negative); Barbiturates Screen Urine Negative (Negative); Benzodiazepines Screen Urine Negative (Negative); Cocaine Screen Urine Negative (Negative); HCG Qualitative Urine. Negative (Negative); Opiate Screen Urine Positive (Negative); PCP Screen Urine Negative (Negative); THC Screen Urine Positive (Negative)
[2020-05-26 18:55] LABS: Protein Urine 1+ (Negative); Specific Gravity, Urine 1.005 (1.005-1.030); Urine Appearance Cloudy (CLEAR); Urine Color Other (Yellow); pH Urine 7 (5-7)
[2020-05-26 18:59] LABS: HCG, Serum Qual Negative (Negative)
[2020-05-26 19:01] LABS: Add Urine Microscopic? YES; Bilirubin Urine Neg (Negative); Blood Urine 3+ (Negative); Glucose Urine UA Norm (Normal); Ketones Urine Negative (Negative); Leukocyte Esterase Urine 1+ (Negative); Nitrate Urine Negative (Negative); Urobilinogen Urine Norm (Negative)
--- NOTE | 2020-05-26 19:01 | CTR_ITS ---
PROCEDURE INFORMATION: Exam: CT Right Lower Extremity With Contrast, Foot Exam date and time: 05/26/2020 7:10 PM Age: 44 years old Clinical indication: Swelling, leg or foot; Additional info: Abscess. Osteomyelitis? TECHNIQUE: Imaging protocol: CT of the Right lower extremity with intravenous contrast was performed. Exam focused on the foot. Total images: 500 Radiation optimization: All CT scans at this facility use at least one of these dose optimization techniques: automated exposure control; mA and/or kV adjustment per patient size (includes targeted exams where dose is matched to clinical indication); or iterative reconstruction. Contrast material: OMNI 300; Contrast volume: 95 ml; Contrast route: INTRAVENOUS (IV); COMPARISON: CR XR foot RT min 3V* [id number] 05/23/2020 11:22 PM RADIATION DOSE METRICS: Total DLP (mGy-cm): 449.57 FINDINGS: Bones/joints: No visible active or acute osseous pathology. No visible fracture, subluxation or dislocation. No visible osteolytic or osteoblastic destructive process. No findings raising suspicion for osteolytic destruction from osteomyelitis. Soft tissues: Marked soft tissue swelling surrounding the base of the right hallux extending into the proximal 1st and 2nd digits along the plantar aspect. Greatest degree of soft tissue swelling/edema and probable cellulitis along the plantar aspect at the level of the metatarsophalangeal joint of the hallux and 2nd digit. Soft tissue edema and swelling extends to the lateral margin of the right hallux. There exist the potential for immature abscess formation. No well-defined loculated fluid collection to suggest seroma, hematoma, or organized abscess identified. Evidence of diffuse soft tissue edema and/or cellulitis along the extensor surface of the ankle and foot within the field of view. CT/CT foot RT w con [id number] IMPRESSION: 1. Currently no visible osteolytic destructive process to suggest active osteomyelitis although MRI would be necessary to exclude with confidence. 2. Marked soft tissue swelling greatest involvement plantar aspect base of the 1st and 2nd digits as well as extension to the lateral margin of the right hallux as detailed in text above. 3. Potential exists for for immature abscess formation plantar aspect and lateral margin of the hallux extending to the level of the base of the 2nd digit. 4. Would recommend either ultrasound or MRI for further evaluation and characterization to assess for both abscess formation and/or early osteomyelitis Radiation Dose CTDIVOL = (mGy): DLP = 449.57 (mGy-cm)
[2020-05-26 19:09] LABS: RBC Urine TOO NUMEROUS TO CNT /hpf (0-2); WBC Urine 0-4 /hpf (0-5)
[2020-05-26 19:10] LABS: Add Urine Culture? No; Bacteria Urine 1+ /hpf; Squamous Epithelial Cell Urine 40-55 /hpf (0-5)
[2020-05-26] MEDS: iohexol 300 mg/mL 100 mL Btl IV (19:19)
--- NOTE | 2020-05-26 20:58 | P.HP_ITS ---
Providers/Chief Complaint Chief Complaint: Cellulitis Related Complications in Right Foot History of Present Illness Marianne Wheeler is a 44 year old female who has history of IV drug abuse polysubstance abuse amphetamine and THC, presented today with worsening foot infection. Patient is stating that she stepped on a thorn a week ago and on Saturday she came to the ER for further evaluation she was prescribed Levaquin for cellulitis, at home her cellulitis has been getting worse she is noticing more swelling, redness and purulent drainage, she came back today for evaluation of worsening foot pain. She is denying fever, nausea, vomiting, diarrhea chest pain shortness of breath. Temperature at home 99.9. She does endorse history of hepatitis C for which she was treated for 90 days successfully. Diagnostics in the ER revealed sepsis, purulent cellulitis Dr. Barger has been notified and consulted, her wound culture grew MRSA she will be started on vancomycin and kept n.p.o. after midnight, no signs of osteomyelitis on CT we will request ESR, CRP, urine sample shows hematuria, patient is denying signs of UTI, it also has evidence of contamination, she was given vancomycin in the ER morphine 2 mg and 1 L normal saline Review of Systems Const: Reports: body aches and fatigue; Denies: fever(s) or chills Eyes: Denies: change in vision ENMT: Denies: throat pain Card: Denies: chest pain Resp: Denies: dyspnea GI: Denies: abdominal pain : Denies: flank pain Musc: Reports: extremity pain, extremity swelling, joint pain, joint swelling and joint stiffness; Denies: neck pain Skin/Breast: Reports: new lesions Neuro: Denies: headache(s) Psych: Reports: anxiety and irritability Endo: Denies: polyuria Mina/Lymph: Denies: easy bruising All/Imm: Denies: urticaria Medications/Allergies Home Medications Medication Instructions Recorded Confirmed Last Taken Type aspirin [Aspir-81] 81 mg PO DAILY 10/24/19 05/26/20 05/26/20 History ibuprofen 600 mg PO Q6H PRN 10/24/19 05/26/20 05/26/20 History lisinopril 10 mg PO DAILY 10/24/19 05/26/20 05/25/20 History hydrocodone-acetaminophen 1 tab PO TID PRN #10 tab 05/24/20 05/26/20 05/26/20 Rx levofloxacin 500 mg PO DAILY 7 Days tab 05/24/20 05/26/20 05/26/20 Rx acetaminophen 325 mg PO QID PRN 05/26/20 05/26/20 05/26/20 History Allergies Allergy/AdvReac Type Severity Reaction Status Date / Time ketamine Allergy ADR-Anxiety Verified 05/26/20 16:20 prochlorperazine Allergy ADR-Agitate Verified 05/26/20 16:20 [From Compazine] d PFSH Acute PFSH: Medical History Bipolar disorder Gastroesophageal reflux History of anxiety History of depression History of fracture History of kidney stones History of methamphetamine abuse History of vaginal delivery Hx MRSA infection Hx of heat stroke Hx of primary hypertension Migraine Olecranon bursitis, left elbow PTSD (post-traumatic stress disorder) Sleep apnea Substance abuse Surgical History Hx of dilation and curettage Family History Father CAD (coronary artery disease) Other Cancer Social History Smoking and tobacco status: current every day smoker Alcohol intake: never Substance/Drug Use: current Substance/Drug use type: Marijuana and Methamphetamine Household members: significant other Housing: House Female Reproductive History: Date of last menstrual period: 03/06/19 Vitals/I&O/Wt Last Vital Signs Temp 97.8 F 05/26/20 16:20 Pulse 106 H 05/26/20 16:20 Resp 18 05/26/20 16:20 BP 119/85 05/26/20 16:20 Pulse Ox 99 05/26/20 16:20 Weight last 48 hrs Weight 86.183 kg Physical Exam Narrative: EXAM NARRATIVE: Pleasant female, who appears stated age She does look a bit irritable with a lot of anxiety, S1, S2 sinus tachycardia no signs of heart failure or murmur Abdomen soft nontender Bilateral breath sounds no audible wheezing or stridor Lower extremity purulent cellulitis dorsal side of right great toe, active drainage of pus, hyperemia tender to palpate with no vascular compromise, hyperemia is extending up to the dorsal midfoot without involvement of ankle, mild edema 1+ No neurological deficits EOMI, PERRLA Irritable/anxious mood Data : 05/26/20 17:45 05/26/20 17:45 Micro: Microbiology 05/26/20 18:15 Blood Culture - Preliminary Blood SPECIMEN COLLECTED 05/26/20 17:45 Blood Culture - Preliminary Blood SPECIMEN COLLECTED A&P Assessment and plan (1) Cellulitis and abscess of foot: Status: Acute (2) Abscess of foot: Status: Acute (3) Substance abuse: Status: Acute Additional A&P Information Sepsis Due to purulent cellulitis, active abscess drainage, no signs of osteomyelitis, will check ESR and CRP, CT foot does not show osteomyelitis however it is not very sensitive test Wound culture grew MRSA We will start her on vancomycin Podiatry consult Keep her n.p.o. after midnight, start maintenance fluids Check hepatitis and HIV panel considering IV drug abuse history Hematuria Repeat UA in the morning for persistent hematuria consider renal CT to rule out urolithiasis currently no signs of UTI IV drug abuse: Patient endorses to methamphetamine and marijuana, She injects methamphetamine in upper extremities She is struggling and failing to quit, discussed/counseled help options to quit IV drug abuse, she is willing to go for behavioral therapy Essential hypertension: Currently normotensive, she takes lisinopril at home which I would continue for now N.p.o. after midnight DVT prophylaxis: SCDs avoid anticoagulation in anticipation of intervention in the morning kindly start anticoagulation after the procedure Full code Attestations Medical Necessity Statement*: Anticipating stay in the hospital course more than 2 midnights because of intervention required for purulent cellulitis and sepsis Time Spent in Patient Care: (>than 50% of time spent in counselling and/or direct pt care on unit) . 40mins Coding Level of Care Code Acute Director [employer] for [employer] Diagnoses Cellulitis and abscess of foot L03.119; L02.619 Abscess of foot L02.619 Substance abuse F19.10
[2020-05-26 21:13] LABS: HIV 1 & 2 Antibody Non-Reactive (Non-Reactiv); HIV 1 & 2 Antigen Non-Reactive (Non-Reactiv)
[2020-05-26 21:57] VITALS: BP 134/86; PULSE 109; RESP 22; O2SAT 97
[2020-05-26 22:24] VITALS: BP 143/91; PULSE 109; RESP 20; TEMP 36.7; O2SAT 100
[2020-05-26] MEDS: dextrose 5%-sod chloride 0.45% 1,000 ML 75 ML IV (22:46)
[2020-05-26 22:47] VITALS: RESP 20
[2020-05-26 22:49] LABS: Erythrocyte Sedimentation Rate 79 mm/hr (0-15)
--- NOTE | 2020-05-26 23:12 | PC.PHAR ---
Vancomycin is dosed at 1gm IVPB every 8 hours to produce a predicted trough level of 12.59 (population based pharmacokinetic analysis). A trough level has been ordered from the lab to be obtained before th fourth dose to confirm and adjust if needed.
[2020-05-26 23:50] LABS: Hepatitis A Antibody IgM Non-Reactive (Nonreactive); Hepatitis B Core IgM Non-Reactive (Nonreactive); Hepatitis B Surface Antigen Non-Reactive (Nonreactive)
[2020-05-27] VITALS (16 sets, daily range): BP systolic 104–135; BP diastolic 64–80; PULSE 90–117; RESP 16–18; TEMP 36.3–37.7; O2SAT 93–100
[2020-05-27 00:38] LABS: Hepatitis C Virus Antibody Reactive (Nonreactive)
[2020-05-27] MEDS: morphine 4 mg/mL SDV 1 mL 2 MG IVP ×5 (02:43→21:00)
[2020-05-27] MEDS: vancomycin 1,000 MG in sodium chloride 0.9% 250 ML 250 MG IV ×3 (02:44→18:56)
[2020-05-27] MEDS: ibuprofen 600 mg Tablet PO ×2 (06:00→15:21)
[2020-05-27] MEDS: acetaminophen 325 mg Tablet PO ×2 (06:00→20:10)
--- NOTE | 2020-05-27 06:13 | PM.CONSULT ---
Providers/Reason For Consult Consulting Physican/Specialty*: Henry Barger D.P.M. Reason for Consult*: Puncture wound, abscess and cellulitis right lower extremity Attending Physician: Amira Whitehead MD History of Present Illness History of Present Illness Marianne Wheeler is a 44 year old female admitted to the hospital having failed outpatient/oral antibiotics for cellulitis and abscess secondary to puncture wound on the right foot. She states that she stepped on a locus thorn approximately a week and a half ago she was wearing flip-flops, [facility]. She was initially seen at the emergency department on 05/23/2020 and was prescribed Levaquin. She returned to the emergency department on 05/26/2020 with increased redness, increased pain and drainage and subsequently mated to the hospital. She has history of IV drug abuse and polysubstance abuse including amphetamines and THC. She endorses pain at her right foot. Normal subjective Review of Systems General: Reports: 10 or more systems reviewed and unremarkable except in HPI and below Const: Denies: fever(s) or chills Eyes: Denies: change in vision Card: Denies: chest pain or palpitations Resp: Denies: dyspnea or productive cough GI: Denies: abdominal pain, nausea or vomiting : Denies: flank pain Musc: Reports: extremity pain, joint pain, joint stiffness, limited range of motion and deformity Skin/Breast: Reports: erythema, skin pain, skin tenderness, skin swelling and sores Neuro: Reports: difficulty walking; Denies: numbness in extremities, sensory changes or frequent falls Psych: Denies: suicidal ideation Mina/Lymph: Denies: easy bruising Meds/Allergies Home Medications and Allergies Home Medications Medication Instructions Recorded Confirmed Last Taken Type aspirin [Aspir-81] 81 mg PO DAILY 10/24/19 05/26/20 05/26/20 History ibuprofen 600 mg PO Q6H PRN 10/24/19 05/26/20 05/26/20 History lisinopril 10 mg PO DAILY 10/24/19 05/26/20 05/25/20 History hydrocodone-acetaminophen 1 tab PO TID PRN #10 tab 05/24/20 05/26/20 05/26/20 Rx levofloxacin 500 mg PO DAILY 7 Days tab 05/24/20 05/26/20 05/26/20 Rx acetaminophen 325 mg PO QID PRN 05/26/20 05/26/20 05/26/20 History Allergies Allergy/AdvReac Type Severity Reaction Status Date / Time ketamine Allergy ADR-Anxiety Verified 05/26/20 16:20 prochlorperazine Allergy ADR-Agitate Verified 05/26/20 16:20 [From Compazine] d Current Medications Current Medications Generic Name Dose Route Start Last Admin Trade Name Freq PRN Reason Stop Dose Admin Acetaminophen 325 mg 05/26/20 22:04 05/27/20 06:00 Acetaminophen 325 Mg Tablet PO 325 mg QID PRN Administration MILD Dextrose/Sodium Chloride 1,000 mls @ 75 mls/hr 05/26/20 22:04 05/26/20 22:46 Dextrose 5%-Sod Chloride 0.45% IV 75 mls/hr .[id number] KEVIN Administration Vancomycin HCl 1,000 mg/ 250 mls @ 250 mls/hr 05/27/20 02:00 05/27/20 03:45 Sodium Chloride IV Infused Q8H KEVIN Infusion Protocol Ibuprofen 600 mg 05/26/20 22:04 05/27/20 06:00 Ibuprofen 600 Mg Tablet PO 600 mg Q6H PRN Administration MODERATE PAIN Morphine Sulfate 2 mg 05/26/20 22:04 05/27/20 02:43 Morphine 4 Mg/Ml Sdv 1 Ml IVP 2 mg Q4H PRN Administration SEVERE PAIN PFSH Acute PFSH: Medical History Bipolar disorder Gastroesophageal reflux History of anxiety History of depression History of fracture History of kidney stones History of methamphetamine abuse History of vaginal delivery Hx MRSA infection Hx of heat stroke Hx of primary hypertension Migraine Olecranon bursitis, left elbow PTSD (post-traumatic stress disorder) Sleep apnea Substance abuse Surgical History Hx of dilation and curettage Family History Father CAD (coronary artery disease) Other Cancer Social History Smoking and tobacco status: current every day smoker Alcohol intake: never Substance/Drug Use: current Substance/Drug use type: Marijuana and Methamphetamine Household members: significant other Housing: House Female Reproductive History: Date of last menstrual period: 03/06/19 Vitals/I&O/Wt Last Vital Signs Temp 99.9 F H 05/27/20 03:55 Pulse 117 H 05/27/20 03:55 Resp 18 05/27/20 03:55 BP 135/73 05/27/20 03:55 Pulse Ox 96 05/27/20 03:55 05/26/20 05/26/20 05/27/20 14:59 22:59 06:59 Intake Total 1250 / 1250 2170 / 3420 Output Total 500 / 500 Balance 1250 / 1250 1670 / 2920 Weight last 48 hrs Weight 190 lb Physical Exam Narrative: EXAM NARRATIVE: GENERAL: Patient is alert and oriented ?3 and in no acute distress. The following is a focused right lower extremity exam. VASCULAR: Dorsalis pedis +2 posterior tibial arteries +2. Capillary refill time less than 2 3 seconds to the distal hallux bilaterally. Calf is supple and nontender proximally and distally. Edema to the right forefoot. NEUROLOGICAL: Protective sensation intact 10/10 sites, tested with Lawrence Yohan monofilament to bilateral feet. DERMATOLOGICAL: Puncture wound subfirst metatarsal right foot with purulent drainage surrounding erythema and malodor there is proximal streaking to the level of the midfoot. Wound goes from plantar to dorsal medial to the first metatarsophalangeal joint. MUSCULOSKELETAL: Pain with range of motion of the right first metatarsophalangeal joint. Patient is able to dorsiflex and plantarflex ankle pain-free without crepitus. No crepitus on palpation of the skin. Able to wiggle toes on command. Data Micro: Micro: Microbiology 05/26/20 18:15 Blood Culture - Pr eliminary Blood SPECIMEN [facility]LENA 05/26/20 17:45 Blood Culture - Pr eliminary Blood SPECIMEN [facility] Other Data: Other data: 05/26/2020 WBC 15.0 05/26/2020 neutrophils 12.34 left shift 05/26/2020 urine positive for opiates Covid screening pending Patient: Marianne Wheeler Marie #: [id number] : 1975Acct#:[id number] Age/Sex: 44 / FADM Date: 05/23/20 Loc: ERRoom/Bed: Attending Dr: Ordering Provider/Ordering MD: David Anton Sr, HEALTH EDUCATION SPECIALIST- Date of Service: 05/23/20 Procedure(s): XR foot RT min 3V* [id number] Accession Number(s): [id number] Report Number: [id number] WS: [id number] RIGHT FOOT: 3 VIEW(S) TECHNIQUE: AP, oblique and lateral. HISTORY: cellulitis, stepped on thorn- great toe , soft tissue please COMPARISON: 10/27/2010 Single lateral projection is an osseous density over the talar neck which may be an osteophyte which has progressed since 2010. No history of trauma to support fracture. Tarsometatarsal alignment is normal. There is extensive soft tissue edema surrounding the foot, greatest over the first toe. XR/XR foot RT min 3V* [id number] IMPRESSION: 1. Moderate amount of soft tissue edema surrounding the foot, greatest on the plantar surface of the first toe. No foreign body. Consistent with cellulitis. 2. No acute fracture. Small osseous densities near the talus are probably related to an old injury as there is no history of an acute injury to support fracture. Dictated By:Nhi Rasmussen DO Signed By:Nhi Rasmussen DOSigned Date/Time:05/24/[address] Scan Report Signed Patient: Marianne Wheeler #: [id number] : 1975Acct#:[id number] Age/Sex: 44 / FADM Date: 05/26/20 Loc: ERRoom/Bed: Attending Dr: Ordering Provider/Ordering MD: Yusuf Villareal MD Date of Service: 05/26/20 Procedure(s): CT foot RT w con [id number] Accession Number(s): [id number] Report Number: [id number] PROCEDURE INFORMATION: Exam: CT Right Lower Extremity With Contrast, Foot Exam date and time: 05/26/2020 7:10 PM Age: 44 years old Clinical indication: Swelling, leg or foot; Additional info: Abscess. Osteomyelitis? TECHNIQUE: Imaging protocol: CT of the Right lower extremity with intravenous contrast was performed. Exam focused on the foot. Total images: 500 Radiation optimization: All CT scans at this facility use at least one of these dose optimization techniques: automated exposure control; mA and/or kV adjustment per patient size (includes targeted exams where dose is matched to clinical indication); or iterative reconstruction. Contrast material: OMNI 300; Contrast volume: 95 ml; Contrast route: INTRAVENOUS (IV); COMPARISON: CR XR foot RT min 3V* [id number] 05/23/2020 11:22 PM RADIATION DOSE METRICS: Total DLP (mGy-cm): 449.57 FINDINGS: Bones/joints: No visible active or acute osseous pathology. No visible fracture, subluxation or dislocation. No visible osteolytic or osteoblastic destructive process. No findings raising suspicion for osteolytic destruction from osteomyelitis. Soft tissues: Marked soft tissue swelling surrounding the base of the right hallux extending into the proximal 1st and 2nd digits along the plantar aspect. Greatest degree of soft tissue swelling/edema and probable cellulitis along the plantar aspect at the level of the metatarsophalangeal joint of the hallux and 2nd digit. Soft tissue edema and swelling extends to the lateral margin of the right hallux. There exist the potential for immature abscess formation. No well-defined loculated fluid collection to suggest seroma, hematoma, or organized abscess identified. Evidence of diffuse soft tissue edema and/or cellulitis along the extensor surface of the ankle and foot within the field of view. CT/CT foot RT w con [id number] IMPRESSION: 1. Currently no visible osteolytic destructive process to suggest active osteomyelitis although MRI would be necessary to exclude with confidence. 2. Marked soft tissue swelling greatest involvement plantar aspect base of the 1st and 2nd digits as well as extension to the lateral margin of the right hallux as detailed in text above. 3. Potential exists for for immature abscess formation plantar aspect and lateral margin of the hallux extending to the level of the base of the 2nd digit. 4. Would recommend either ultrasound or MRI for further evaluation and characterization to assess for both abscess formation and/or early osteomyelitis Radiation Dose CTDIVOL = (mGy): DLP = 449.57 (mGy-cm) Dictated By:Geraldo Myers Signed By:Reed Myers Date/Time:05/26/201952 DD/ 50 Culture taken 05/24/2020 significant for MRSA Blood cultures negative to date A&P Assessment and plan (1) Cellulitis and abscess of foot: Status: Acute (2) Puncture wound of foot: Status: Acute Qualifiers: Encounter type: initial encounter Laterality: right Qualified Code(s): S91.331A - Puncture wound without foreign body, right foot, initial encounter 44-year-old female with puncture wound and abscess with cellulitis to the right lower extremity failed outpatient antibiotics. Patient n.p.o. since midnight Incision and debridement this morning 05/27/20 Empiric antibiotics being administered Will order [employer] shoe Will need wound care referral at discharge for outpatient follow-up Dr. Goodman BostonPTuan. Cell phone [phone] Consult Attestations Medical Necessity Statement: Cellulitis right lower extremity Coding Level of Care Code Acute Commercial Lines Account Manager for [facility] Diagnoses Cellulitis and abscess of foot L03.119; L02.619 Puncture wound of foot S91.331A Encounter type: initial encounter Laterality: right
[2020-05-27] MEDS: lisinopril 5 mg Tablet 10 MG PO (08:45)
[2020-05-27] MEDS: aspirin 81 mg EC Tablet PO (08:45)
[2020-05-27] MEDS: sennosides-docusate Tablet 1 TAB PO (08:45)
--- NOTE | 2020-05-27 10:04 | P.ANESASSM_ITS ---
Pre-Anesthetic Assessment Pre-Anesthetic Assessment: Height/Weight: Height 1.63 m Weight 86.183 kg Temp Pulse Resp BP Pulse Ox 99.3 F 105 H 17 107/68 96 05/27/20 07:42 05/27/20 07:42 05/27/20 07:42 05/27/20 07:42 05/27/20 07:42 Preop Diagnosis: left olecranon bursitis Proposed Procedure: Operation Date: 05/27/20 11:30 Proposed Procedures p Incision And Drainage(Right) - Henry Barger DPM Familial anesthetic complications: none Was Beta Malick taken within 24 hours: N/A Was Clonidine taken within 24 hours: N/A Last intake: Intake Last Liquid Date 05/26/20 Last Liquid Time 23:59 Last Solid Date 05/26/20 Last Solid Time 22:00 Social: Social History: No alcohol and No tobacco Comment: meth and pot, 1 week ago used meth Exam: Pre-Anes Outpt Exam: alert, oriented x 3, clear to auscultation bilaterally and regular rate & rhythm Airway: Cervical ROM: WNL MP: 2 Dentition: Chipped, Loose and Other (poor dentition) Pulmonary: Pulmonary: Sleep apnea CV/HEM: CV/HEM: HTN GI: GI: GERD Anesthetic Plan: ASA status: 3 Anesthesia: MAC Risk of > 500 ml blood lo ss (7ml/kg in children): No Meds/Allergies Current Medications: Current Medications Generic Name Dose Route Start Last Admin Trade Name Freq PRN Reason Stop Dose Admin Acetaminophen 325 mg 05/26/20 22:04 05/27/20 06:00 Acetaminophen 32 5 Mg Tablet PO 325 mg QID PRN Administration MILD Aspirin 81 mg 05/27/20 09:00 05/27/20 08:45 Aspirin 81 Mg Ec Tablet PO 81 mg DAILY KEVIN Administration Dextrose/Sodium Ch loride 1,000 mls @ 75 ml s/hr 05/26/20 22:04 05/26/20 22:46 Dextrose 5%-Sod Chloride 0.45% IV 75 mls/hr .[id number] KEVIN Administration Vancomycin HCl 1,0 00 mg/ 250 mls @ 250 mls /hr 05/27/20 02:00 05/27/20 09:00 Sodium Chloride IV 250 mls/hr Q8H KEVIN Administration Protocol Ibuprofen 600 mg 05/26/20 22:04 05/27/20 06:00 Ibuprofen 600 Mg Tablet PO 600 mg Q6H PRN Administration MODERATE PAIN Lisinopril 10 mg 05/27/20 09:00 05/27/20 08:45 Lisinopril 5 Mg Tablet PO 10 mg DAILY KEVIN Administration Morphine Sulfate 2 mg 05/26/20 22:04 05/27/20 06:45 Morphine 4 Mg/Ml Sdv 1 Ml IVP 2 mg Q4H PRN Administration SEVERE PAIN Senna/Docusate Sod ium 1 tab 05/27/20 09:00 05/27/20 08:45 Sennosides-Docus ate Tablet PO 1 tab DAILY KEVIN Administration PFSH Anesthesia PFSH: Medical History Bipolar disorder Gastroesophageal reflux History of anxiety History of depression History of fracture History of kidney stones History of methamphetamine abuse History of vaginal delivery Hx MRSA infection Hx of heat stroke Hx of primary hypertension Migraine Olecranon bursitis, left elbow PTSD (post-traumatic stress disorder) Sleep apnea Substance abuse Surgical History Hx of dilation and curettage Family History Father CAD (coronary artery disease) Other Cancer Social History Smoking and tobacco status: current every day smoker Alcohol intake: never Substance/Drug Use: current Substance/Drug use type: Marijuana and Methamphetamine Household members: significant other Housing: House Female Reproductive History: Date of last menstrual period: 03/06/19 Data Anesthesia CBC & Chem 7: 05/26/20 17:45 05/26/20 17:45 Other Labs: Laboratory Results - last 48 hr 05/26/20 05/26/20 05/26/20 07:54 17:45 17:45 WBC 15.0 H RBC 3.75 L Hgb 12.1 Hct 36.2 L MCV 96.5 MCH 32.3 MCHC 33.4 RDW 12.1 Plt Count 389 MPV 9.0 Neut % (Auto) 82.1 Lymph % (Auto) 8.6 [place] % (Auto) 7.6 Eos % (Auto) 1.0 Baso % (Auto) 0.3 Neut # (Auto) 12.34 H Lymph # (Auto) 1.3 [place] # (Auto) 1.1 H Eos # (Auto) 0.2 Baso # (Auto) 0.1 Nucleated RBC % (auto) 0 Nucleated RBCs # 0.0 ESR 79 H Sodium 131 L Potassium 3.9 Chloride 93 L Carbon Dioxide 28 Anion Gap 13.9 BUN 12 Creatinine 0.5 GFR Calculation 134.7 H Glucose 105 Calculated Osmolality 272 L Lactate Calcium 9.3 Total Bilirubin 0.3 AST 18 ALT 27 Alkaline Phosphatase 105 Total Protein 6.9 Albumin 3.6 Globulin 3.3 HCG, Qual Urine Color Urine Appearance Urine pH Ur Specific [place] Urine Protein Urine Glucose (UA) Urine Ketones Urine Blood Urine Nitrate Urine Bilirubin Urine Urobilinogen Ur Leukocyte Esterase Urine RBC Urine WBC Ur Squamous Epith Cells Amorphous Sediment Urine Bacteria Urine Opiates Screen Ur Barbiturates Screen Ur Phencyclidine Scrn Ur Amphetamines Screen U Benzodiazepines Scrn Urine Cocaine Screen U Marijuana (THC) Screen Hepatitis A IgM Ab Hep Bs Antigen Hep B Core IgM Ab Hepatitis C Antibody HIV 1&2 Ab & HIV 1 Ag HIV 1&2 Antibody 05/26/20 05/26/20 05/26/20 17:45 17:45 17:54 WBC RBC Hgb Hct MCV MCH MCHC RDW Plt Count MPV Neut % (Auto) Lymph % (Auto) [place] % (Auto) Eos % (Auto) Baso % (Auto) Neut # (Auto) Lymph # (Auto) [place] # (Auto) Eos # (Auto) Baso # (Auto) Nucleated RBC % (auto) Nucleated RBCs # ESR Sodium Potassium Chloride Carbon Dioxide Anion Gap BUN Creatinine GFR Calculation Glucose Calculated Osmolality Lactate 1.3 Calcium Total Bilirubin AST ALT Alkaline Phosphatase Total Protein Albumin Globulin HCG, Qual Negative Urine Color Urine Appearance Urine pH Ur Specific [place] Urine Protein Urine Glucose (UA) Urine Ketones Urine Blood Urine Nitrate Urine Bilirubin Urine Urobilinogen Ur Leukocyte Esterase Urine RBC Urine WBC Ur Squamous Epith Cells Amorphous Sediment Urine Bacteria Urine Opiates Screen Ur Barbiturates Screen Ur Phencyclidine Scrn Ur Amphetamines Screen U Benzodiazepines Scrn Urine Cocaine Screen U Marijuana (THC) Screen Hepatitis A IgM Ab Non-reactive Hep Bs Antigen Non-reactive Hep B Core IgM Ab Non-reactive Hepatitis C Antibody Reactive H HIV 1&2 Ab & HIV 1 Ag HIV 1&2 Antibody 05/26/20 05/26/20 05/26/20 17:54 18:15 18:15 WBC RBC Hgb Hct MCV MCH MCHC RDW Plt Count MPV Neut % (Auto) Lymph % (Auto) [place] % (Auto) Eos % (Auto) Baso % (Auto) Neut # (Auto) Lymph # (Auto) [place] # (Auto) Eos # (Auto) Baso # (Auto) Nucleated RBC % (auto) Nucleated RBCs # ESR Sodium Potassium Chloride Carbon Dioxide Anion Gap BUN Creatinine GFR Calculation Glucose Calculated Osmolality Lactate Calcium Total Bilirubin AST ALT Alkaline Phosphatase Total Protein Albumin Globulin HCG, Qual Negative Urine Color Other Urine Appearance Cloudy Urine pH 7 Ur Specific [place] 1.005 Urine Protein 1+ H Urine Glucose (UA) Norm Urine Ketones Negative Urine Blood 3+ H Urine Nitrate Negative Urine Bilirubin Neg Urine Urobilinogen Norm Ur Leukocyte Esterase 1+ H Urine RBC Too numerous to cnt H Urine WBC 0-4 H Ur Squamous Epith Cells 40-55 H Amorphous Sediment Not Reportable Urine Bacteria 1+ H Urine Opiates Screen Ur Barbiturates Screen Ur Phencyclidine Scrn Ur Amphetamines Screen U Benzodiazepines Scrn Urine Cocaine Screen U Marijuana (THC) Screen Hepatitis A IgM Ab Hep Bs Antigen Hep B Core IgM Ab Hepatitis C Antibody HIV 1&2 Ab & HIV 1 Ag Non-reactive HIV 1&2 Antibody Non-reactive 05/26/20 18:15 WBC RBC Hgb Hct MCV MCH MCHC RDW Plt Count MPV Neut % (Auto) Lymph % (Auto) [place] % (Auto) Eos % (Auto) Baso % (Auto) Neut # (Auto) Lymph # (Auto) [place] # (Auto) Eos # (Auto) Baso # (Auto) Nucleated RBC % (auto) Nucleated RBCs # ESR Sodium Potassium Chloride Carbon Dioxide Anion Gap BUN Creatinine GFR Calculation Glucose Calculated Osmolality Lactate Calcium Total Bilirubin AST ALT Alkaline Phosphatase Total Protein Albumin Globulin HCG, Qual Urine Color Urine Appearance Urine pH Ur Specific [place] Urine Protein Urine Glucose (UA) Urine Ketones Urine Blood Urine Nitrate Urine Bilirubin Urine Urobilinogen Ur Leukocyte Esterase Urine RBC Urine WBC Ur Squamous Epith Cells Amorphous Sediment Urine Bacteria Urine Opiates Screen Positive H Ur Barbiturates Screen Negative Ur Phencyclidine Scrn Negative Ur Amphetamines Screen Negative U Benzodiazepines Scrn Negative Urine Cocaine Screen Negative U Marijuana (THC) Screen Positive H Hepatitis A IgM Ab Hep Bs Antigen Hep B Core IgM Ab Hepatitis C Antibody HIV 1&2 Ab & HIV 1 Ag HIV 1&2 Antibody Micro: Microbiology 05/26/20 18:15 Blood Culture - Preliminary Blood SPECIMEN COLLECTED 05/26/20 17:45 Blood Culture - Preliminary Blood SPECIMEN COLLECTED Cardiac Studies: No Data to Display
--- NOTE | 2020-05-27 10:07 | P.HPUD_ITS ---
Surgery/Procedure H&P Update DATE OF PROCEDURE: May 27, 2020 DATE H&P PERFORMED: 05/27/19 H&P UPDATE INFORMATION: I have reviewed H&P completed within last 30 days, I have examined patient prior to procedure, No changes to prior documentation and H&P is in [facility] EMR on date indicated PREOP DIAGNOSIS: left olecranon bursitis PLANNED PROCEDURE: Operation Date: 05/27/20 11:30 Proposed Procedures p Incision And Drainage(Right) - Henry Barger DPM
[2020-05-27] MEDS: sodium chloride 0.9% 1,000 ML 30 ML IV (10:16)
[2020-05-27] MEDS: lidocaine 1% INJ 20 mL INJECTION (10:40)
[2020-05-27] MEDS: sodium hypochlorite 0.25% Btl 473 mL TOPICAL (10:50)
--- NOTE | 2020-05-27 11:01 | PM.OP ---
Operative Report Date of procedure: May 27, 2020 Pre-op Diagnosis: Puncture wound with abscess right foot Post-op diagnosis: same Procedure Done: Incision and debridement right foot Implants: Quarter-inch Jesus drain Specimens removed/disposition: Muscle and deep fascia sent to microbiology for Gram stain and culture Surgeon: Henry Barger D.P.M. Footwear Machinery Instructor: Lissette Anesthesia: MAC Estimated blood loss: Less than 10 mL Tourniquet time: Tourniquet not inflated IV fluids: None Urine output: None Complications: None Findings: Devitalized soft tissue down to joint capsule did not extend to bone. Condition: stable Disposition: floor Brief History: Puncture wound 1.5 weeks out failed outpatient [facility] was admitted last night for cellulitis, increased pain and purulent drainage to the right foot. Recommended incision and debridement with likely placement of drain. Risks include pain, bleeding, numbness, infection, need for further surgical debridement antibiotic therapy and risk for amputation. Patient is agreeable wishes to proceed. Informed consent signed by the patient and myself, initialed her right foot preoperatively. All questions answered to patient satisfaction. She wishes to proceed. No guarantees written, expressed or implied. Procedure: Under mild sedation the patient was brought to the operating room and placed on the operating table in supine position. A timeout was performed. Anesthesia was then administered by the anesthesia service. Local anesthesia injected by myself total of 30 cc of one-to-one mixture 1% lidocaine 0.5 sent Marcaine plain and a right male block fashion. Well-padded pneumatic tourniquet was applied to the right ankle this was not inflated during the duration of the procedure. Right lower extremity was then scrubbed, prepped and draped utilizing normal aseptic technique. Full-thickness puncture wound at the right plantar forefoot subfirst metatarsal head probe into the first intermetatarsal space tenting the skin dorsally as well as probed medially circumferentially around the medial aspect of the first metatarsophalangeal joint. There is heavy purulence. Dorsal incision at the distal first intermetatarsal space was utilized to allow drain placement and thorough debridement of the first intermetatarsal space this was done sharply with pickups 15 blade as well as rondure. A circumferential incision was made the dorsal medial aspect of the first metatarsophalangeal joint down to the puncture wound site at the plantar aspect of the first metatarsal head this is through skin and subcutaneous tissue and involve down to joint capsule. No bone involvement appreciated. Devitalized soft tissue was debrided sharply and passed from operative field, deep fascial layer sent to microbiology for Gram stain and culture. Cordage Jesus drain from plantar to dorsal at the first intermetatarsal space was placed. Wound was irrigated with copious amounts of sterile saline solution and dressed with quarter percent Dakin solution wet-to-dry, ABD pad, Kerlix and Gomez wrap. Patient tolerated procedure well recommend continuation of empiric IV antibiotics until cultures yield further results may narrow once finalized. Nonweightbearing to the right forefoot. Elevate right foot at all times while at rest.
[2020-05-27 14:43] LABS: Coronavirus Test Green County Not Detected
[2020-05-27 18:34] LABS: Vancomycin Trough 9.2 ug/mL (10-15)
[2020-05-27] MEDS: dextrose 5%-sod chloride 0.45% 1,000 ML 75 ML IV (20:10)
[2020-05-28] VITALS (10 sets, daily range): BP systolic 106–134; BP diastolic 69–84; PULSE 85–99; RESP 16–18; TEMP 36.4–37.2; O2SAT 96–100
--- NOTE | 2020-05-28 00:09 | PM.PN ---
Subjective Subjective: Interval history: She is doing well postoperatively. Reports pain is well controlled. She had a good discussion with podiatry after the procedure. Vitals/I&O/Wt Last Vital Signs Temp 98.7 F 05/27/20 23:47 Pulse 96 05/27/20 23:47 Resp 16 05/27/20 23:47 BP 114/72 05/27/20 23:47 Pulse Ox 96 05/27/20 23:47 05/27/20 05/27/20 05/28/20 14:59 22:59 06:59 Intake Total 1170 / 1170 541.5 / 1711.5 600 / 2311.5 Output Total 260 / 260 2450 / 2710 Balance 910 / 910 -1908.5 / -998.5 600 / -398.5 Weight last 48 hrs Weight 86.183 kg Physical Exam Const: COMMON NORMALS: no acute distress and patient oriented x3 HENMT: COMMON NORMALS: oropharynx normal Neck/C-Spine: COMMON NORMALS: no JVD Resp: COMMON NORMALS: normal respiratory effort and clear to auscultation bilaterally AUSCULTATION: clear to auscultation bilaterally Cardio: COMMON NORMALS: no JVD, regular rhythm, S1 normal heart sound present, S2 normal heart sound present and No murmurs present (Cardio) RHYTHM: regular rhythm HEART SOUNDS: S1 normal heart sound present and S2 normal heart sound present GI: COMMON NORMALS: Normal to inspection, nondistended, normoactive bowel sounds present, Soft to palpation and non-tender PALPATION: Yes Soft to palpation Extremity: COMMON NORMALS: no joint enlargement and no pedal edema OTHER: Right lower extremity in dressing Neuro: COMMON NORMALS: patient oriented x3 and moves all extremities Skin: COMMON NORMALS: no rashes or lesions noted GENERAL SKIN EXAM: no rashes or lesions noted Data : 05/26/20 17:45 05/26/20 17:45 Micro: Microbiology 05/26/20 18:15 Blood Culture - Preliminary Blood NEGATIVE TO DATE 05/26/20 17:45 Blood Culture - Preliminary Blood NEGATIVE TO DATE 05/27/20 10:51 Gram Stain - Final Foot - #1 A&P Assessment and plan (1) Cellulitis and abscess of foot: Status post incision and debridement of right foot. Discussed with podiatry and patient. Plan is for IV antibiotics for additional several days of IV antibiotic therapy prior to discharge with continued oral antibiotic therapy. No bone involvement was appreciated. Continue IV vancomycin at this time. Due to extent of infection we would like to have some cultures back prior to discharge. She is agreeable to continue IV antibiotic therapy inpatient. Improving sepsis. Tachycardia improving. Low-grade fever, 99.9 Fahrenheit appears to have resolved. Follow-up cultures. Status: Acute (2) Abscess of foot: Status: Acute (3) Substance abuse: Status: Acute Additional A&P Information Hematuria: Repeat UA ordered. IV drug abuse: Patient endorses to methamphetamine and marijuana, She injects methamphetamine in upper extremities She is struggling and failing to quit. Discussed with foster care social worker to provide her with additional options for rehabilitation. Essential hypertension: Currently normotensive, continue home lisinopril Attestations Medical Necessity Statement*: Continue admission for assessment management of right foot cellulitis and abscess which required debridement/drainage, with extensive infection and in the setting of IV drug use, sepsis, requiring IV antibiotics and close monitoring. Coding Level of Care Code Acute Geodetic Surveyor for Josephine Rehman Diagnoses Cellulitis and abscess of foot L03.119; L02.619 Abscess of foot L02.619 Substance abuse F19.10
[2020-05-28] MEDS: vancomycin 1,000 MG in sodium chloride 0.9% 250 ML 250 MG IV ×3 (01:18→18:32)
[2020-05-28] MEDS: heparin 5,000 unit/mL INJ 1 mL 5000 UNIT SUBCUT ×3 (01:19→16:55)
[2020-05-28] MEDS: morphine 4 mg/mL SDV 1 mL 2 MG IVP ×5 (01:20→20:14)
--- NOTE | 2020-05-28 07:00 | ANE.PACU2 ---
Inpatient post-anesthesia follow up: Airway intact: Yes Vital signs: Temperature 97.6 F Pulse Rate [Monito r] 106 Pulse Rate 91 Respiratory Rate 16 Blood Pressure [Le ft Arm] 119/85 Blood Pressure 106/73 Pulse Oximetry 96 Oxygen Delivery Me thod Room Air Oxygen Flow Rate 8 Fraction of Inspir ed Oxygen Hydration adequate: Yes Nausea and vomiting: No Pain level: 2 Mental status: Baseline
--- NOTE | 2020-05-28 07:24 | PM.PN ---
Subjective Subjective: Interval history: Patient seen bedside this morning she is 1 day status post I&D of her right foot due to puncture wound, abscess and cellulitis. Patient endorses pain to her right foot. IV came out overnight, was replaced this morning. Patient denies any subjective nausea, vomiting, fever, chills, shortness of breath or chest pain. Vitals/I&O/Wt Last Vital Signs Temp 97.6 F 05/28/20 03:53 Pulse 91 05/28/20 03:53 Resp 16 05/28/20 03:53 BP 106/73 05/28/20 03:53 Pulse Ox 96 05/28/20 03:53 05/27/20 05/28/20 05/28/20 22:59 06:59 14:59 Intake Total 541.5 / 1711.5 850 / 2561.5 Output Total 2450 / 2710 1300 / 4010 Balance -1908.5 / -998.5 -450 / -1448.5 Weight last 48 hrs Weight 190 lb Physical Exam Narrative: EXAM NARRATIVE: GENERAL: Patient is alert and oriented ?3 and in no acute distress. The following is a focused right lower extremity exam. VASCULAR: Dorsalis pedis +2 posterior tibial arteries +2. Capillary refill time less than 2 3 seconds to the distal hallux bilaterally. Calf is supple and nontender proximally and distally. Edema to the right forefoot. NEUROLOGICAL: Protective sensation intact 10/10 sites, tested with [place] monofilament to bilateral feet. DERMATOLOGICAL: Jesus drain left intact at the right first intermetatarsal space no purulent drainage appreciated. Wound exposed to capsule at the medial aspect of the right first metatarsophalangeal joint measures 5 cm x 2 cm x 0.5 cm without purulent drainage there is a soft tissue deficit. Persistent erythema at the right foot. MUSCULOSKELETAL: Pain with range of motion of the right first metatarsophalangeal joint. Patient is able to dorsiflex and plantarflex ankle pain-free without crepitus. No crepitus on palpation of the skin. Able to wiggle toes on command. Data : 05/26/20 17:45 05/26/20 17:45 Micro: Microbiology 05/26/20 18:15 Blood Culture - Preliminary Blood NEGATIVE TO DATE 05/26/20 17:45 Blood Culture - Preliminary Blood NEGATIVE TO DATE 05/27/20 10:51 Gram Stain - Final Foot - #1 A&P Assessment and plan (1) Cellulitis and abscess of foot: Status: Acute (2) Puncture wound of foot: Status: Acute Qualifiers: Encounter type: initial encounter Laterality: right Qualified Code(s): S91.331A - Puncture wound without foreign body, right foot, initial encounter 44-year-old female with puncture wound and abscess with cellulitis to the right lower extremity. -Incision and debridement performed 05/27/20 -Intraoperative cultures pending -Empiric antibiotics being administered may consider adding Flagyl for extended coverage -No significant improvement in the erythema to the right foot, would like to see continuation of IV antibiotics until some clinical improvement is appreciated with plans of oral antibiotics on discharge. -Will order [employer] OrthoWedge shoe -Will need wound care referral at discharge for outpatient follow-up Dr. Goodman BostonPTuan. Cell phone [phone] Attestations Medical Necessity Statement*: Infection right foot Coding Level of Care Code Acute Advertising Account Representative for [facility] Diagnoses Cellulitis and abscess of foot L03.119; L02.619 Puncture wound of foot S91.331A Encounter type: initial encounter Laterality: right
[2020-05-28] MEDS: aspirin 81 mg EC Tablet PO (08:28)
[2020-05-28] MEDS: sennosides-docusate Tablet 1 TAB PO (08:28)
[2020-05-28] MEDS: ibuprofen 600 mg Tablet PO ×2 (08:29→22:30)
[2020-05-28] MEDS: lisinopril 5 mg Tablet 10 MG PO (08:30)
[2020-05-28 09:08] LABS: Add Urine Culture? Yes; Add Urine Microscopic? YES; Bacteria Urine TRACE /hpf; Bilirubin Urine Neg (Negative); Blood Urine 3+ (Negative); Glucose Urine UA Norm (Normal); Ketones Urine Negative (Negative); Leukocyte Esterase Urine Negative (Negative); Nitrate Urine Negative (Negative); Protein Urine Neg (Negative); RBC Urine 40-50 /hpf (0-2); Urine Appearance Hazy (CLEAR); Urine Color Straw (Yellow); Urobilinogen Urine Norm (Negative); pH Urine 5 (5-7)
[2020-05-28] MEDS: dextrose 5%-sod chloride 0.45% 1,000 ML 75 ML IV (17:25)
[2020-05-28 18:15] LABS: Vancomycin Trough 11.8 ug/mL (10-15)
--- NOTE | 2020-05-28 21:26 | P.PN_ITS ---
Subjective Subjective: Interval history: Doing well today. Dressing was changed today early childhood coordinator. Some discomfort, but pain under control. No chest pain or pressure. No trouble breathing. Vitals/I&O/Wt Last Vital Signs Temp 98.9 F 05/28/20 19:34 Pulse 99 05/28/20 19:34 Resp 18 05/28/20 20:14 BP 134/84 05/28/20 19:34 Pulse Ox 100 05/28/20 19:34 05/28/20 05/28/20 05/28/20 06:59 14:59 22:59 Intake Total 850 / 2561.5 1510 / 1510 140 / 1650 Output Total 1300 / 4010 300 / 300 900 / 1200 Balance -450 / -1448.5 1210 / 1210 -760 / 450 Physical Exam Const: COMMON NORMALS: no acute distress and patient oriented x3 HENMT: COMMON NORMALS: oropharynx normal Neck/C-Spine: COMMON NORMALS: no JVD Resp: COMMON NORMALS: normal respiratory effort and clear to auscultation bilaterally AUSCULTATION: clear to auscultation bilaterally Cardio: COMMON NORMALS: no JVD, regular rhythm, S1 normal heart sound present, S2 normal heart sound present and No murmurs present (Cardio) RHYTHM: regular rhythm HEART SOUNDS: S1 normal heart sound present and S2 normal heart sound present GI: COMMON NORMALS: Normal to inspection, nondistended, normoactive bowel sounds present, Soft to palpation and non-tender PALPATION: Yes Soft to palpation Extremity: COMMON NORMALS: no joint enlargement and no pedal edema OTHER: Right lower extremity in dressing Neuro: COMMON NORMALS: patient oriented x3 and moves all extremities Skin: COMMON NORMALS: no rashes or lesions noted GENERAL SKIN EXAM: no rashes or lesions noted Data : 05/26/20 17:45 05/26/20 17:45 Micro: Microbiology 05/26/20 17:45 Wound Culture - Preliminary Other Source Staphylococcus aureus 05/27/20 10:51 Gram Stain - Final Foot - #1 Tissue Culture - Preliminary Staphylococcus aureus 05/26/20 18:15 Blood Culture - Preliminary Blood NEGATIVE TO DATE 05/26/20 17:45 Blood Culture - Preliminary Blood NEGATIVE TO DATE A&P Assessment and plan (1) Cellulitis and abscess of foot: Podiatry assessment appreciated. We will add Flagyl. Continue IV vancomycin for MRSA in the wound cultures. Follow-up blood cultures. Urine cultures. Status post incision and debridement of right foot. Plan is for IV antibiotics for additional several days of IV antibiotic therapy prior to discharge with continued oral antibiotic therapy. No bone involvement was appreciated. Due to extent of infection we would like to have some cultures back prior to discharge. She is agreeable to continue IV antibiotic therapy inpatient. Improving sepsis. Tachycardia improving. Low-grade fever, 99.9 Fahrenheit appears to have resolved. Follow-up cultures. Status: Acute (2) Abscess of foot: Status: Acute (3) Substance abuse: IV drug abuse: Patient endorses to methamphetamine and marijuana, She injects methamphetamine in upper extremities She is struggling and failing to quit. Discussed with child protective services social worker to provide her with additional options for rehabilitation. Status: Acute Additional A&P Information Hematuria: Repeat UA with improving hematuria. Now microscopic. We will follow up again outpatient. Essential hypertension: Currently normotensive, continue home lisinopril Attestations Medical Necessity Statement*: Continue admission for assessment management of MRSA wound infection status post I&D, requiring IV antibiotics due to extent of infection, close wound follow-up, follow-up of culture results and possible additional assessments given IV drug use. Coding Level of Care Code Acute Horticultural Specialty Grower for Josephine Rehman Diagnoses Cellulitis and abscess of foot L03.119; L02.619 Abscess of foot L02.619 Substance abuse F19.10
[2020-05-28] MEDS: metroNIDAZOLE IV 500 MG/100 ML PREMIX 100 MG IV (22:30)
[2020-05-28] MEDS: acetaminophen 325 mg Tablet PO (22:30)
[2020-05-29] VITALS (11 sets, daily range): BP systolic 115–121; BP diastolic 73–80; PULSE 76–95; RESP 14–19; TEMP 36.3–37; O2SAT 96–99
[2020-05-29] MEDS: heparin 5,000 unit/mL INJ 1 mL 5000 UNIT SUBCUT ×3 (00:39→17:06)
[2020-05-29] MEDS: morphine 4 mg/mL SDV 1 mL 2 MG IVP ×6 (00:40→21:13)
[2020-05-29] MEDS: vancomycin 1,000 MG in sodium chloride 0.9% 250 ML 250 MG IV ×3 (03:18→17:12)
[2020-05-29] MEDS: metroNIDAZOLE IV 500 MG/100 ML PREMIX 100 MG IV ×3 (05:39→21:10)
[2020-05-29 06:52] LABS: Basophils # 0.1 10^3/uL (0.0-0.1); Basophils % 0.9 %; Eosinophils # 0.4 10^3/uL (0.0-0.8); Hemoglobin 10.6 g/dL (11.5-15.3); Lymphocytes # 2.6 10^3/uL (0.8-4.8); Lymphocytes % 47.3 %; Mean Corpuscular HGB Conc 31.2 g/dL (30.0-36.0); Mean Corpuscular Hemoglobin 31.7 pg (28.0-34.0); Mean Corpuscular Volume 101.8 fL (81-99); Mean Platelet Volume 8.8 fL (7.4-10.4); Monocytes # 0.5 10^3/uL (0.2-0.9); Monocytes % 8.4 %; Neutrophils # 1.92 10^3/uL (1.8-7.7); Neutrophils % 35.1 %; Nucleated Red Blood Cells % 0 %; Platelet Count 383 10^3/cmm (130-400); Red Blood Count 3.34 10^6/uL (4.1-5.3); Red Cell Distribution Width 12.3 % (12.1-15.1); White Blood Count 5.5 10^3/uL (4.0-10.0)
[2020-05-29 07:15] LABS: Alanine Aminotransferase 13 U/L (0-33); Albumin Level 2.7 g/dL (3.5-5.2); Alkaline Phosphatase 80 IU/L (35-105); Anion Gap 10.1 (5-19); Aspartate Amino Transferase 11 U/L (0-32); Blood Urea Nitrogen 14 mg/dL (6-20); Calcium 8.8 mg/dL (8.5-10.5); Carbon Dioxide 24 mmol/L (22-29); Chloride 108 mmol/L (98-107); Glomerular Filtration Rate 174.2 mL/min (90-130); Glucose 88 mg/dL (65-115); Osmolality Calculated 286 mOsm/kg (285-295); Potassium 4.1 mmol/L (3.5-5.1); Sodium 138 mmol/L (136-145); Total Bilirubin 0.2 mg/dL (0.15-1.2); Total Protein 5.7 g/dL (6.6-8.7)
[2020-05-29] MEDS: sennosides-docusate Tablet 1 TAB PO (08:31)
[2020-05-29] MEDS: lisinopril 5 mg Tablet 10 MG PO (08:31)
[2020-05-29] MEDS: aspirin 81 mg EC Tablet PO (08:31)
[2020-05-29] MEDS: ibuprofen 600 mg Tablet PO (08:34)
--- NOTE | 2020-05-29 11:25 | P.PN_ITS ---
Subjective Subjective: Interval history: Patient seen bedside this morning she is 2 days status post I&D of her right foot due to puncture wound, abscess and cellulitis. Patient endorses pain to her right foot. IV came out overnight, was replaced this morning. Patient denies any subjective nausea, vomiting, fever, chills, shortness of breath or chest pain. Vitals/I&O/Wt Last Vital Signs Temp 98.0 F 05/29/20 07:44 Pulse 76 05/29/20 07:44 Resp 17 05/29/20 07:44 BP 121/79 05/29/20 07:44 Pulse Ox 96 05/29/20 07:44 05/28/20 05/29/20 05/29/20 22:59 06:59 14:59 Intake Total 510 / 2019 2050 / 4070 840 / 840 Output Total 2000 / 2300 2100 / 4400 1000 / 1000 Balance -1490 / -280 -50 / -330 -160 / -160 Physical Exam Narrative: EXAM NARRATIVE: GENERAL: Patient is alert and oriented ?3 and in no acute distress. The following is a focused right lower extremity exam. VASCULAR: Dorsalis pedis +2 posterior tibial arteries +2. Capillary refill time less than 2 3 seconds to the distal hallux bilaterally. Calf is supple and non tender proximally and distally. Edema to the right forefoot. NEUROLOGICAL: Protective sensation intact 10/10 sites, tested with [place] Yohan monofilament to bilateral feet. DERMATOLOGICAL: [place] drain left intact at the right first intermetatarsal space no purulent drainage appreciated. Wound exposed to capsule at the medial aspect of the right first metatarsophalangeal joint measures 5 cm x 2 cm x 0.5 cm without purulent drainage there is a soft tissue deficit. Persistent erythema at the right foot. MUSCULOSKELETAL: Pain with range of motion of the right first metatarsophalangeal joint. Patient is able to dorsiflex and plantarflex ankle pain-free without crepitus. No crepitus on palpation of the skin. Able to wiggle toes on command. Data : 05/29/20 05:46 05/29/20 05:46 Micro: Microbiology 05/28/20 07:45 Urine Culture - Preliminary Urine,Clean Catch 05/26/20 17:45 Wound Culture - Preliminary Other Source Methicillin Resis Staph Aureus 05/27/20 10:51 Gram Stain - Final Foot - #1 Tissue Culture - Preliminary Methicillin Resis Staph Aureus A&P Assessment and plan (1) Cellulitis and abscess of foot: Status: Acute (2) Puncture wound of foot: Status: Acute Qualifiers: Encounter type: initial encounter Laterality: right Qualified Code(s): S91.331A - Puncture wound without foreign body, right foot, initial encounter 44-year-old female with puncture wound and abscess with cellulitis to the right foot. -Incision and debridement performed 05/27/20 -Intraoperative cultures pending -Recommend continuing empiric antibiotics -Small interval of improvement to the erythema to the right foot, would like to see continuation of IV antibiotics until further improvement is appreciated with plans of oral antibiotics on discharge. -Will order [place] OrthoWedge shoe -Will continue Dakins quarter percent wet to dry dressing changes TID for now -Will need wound care referral at discharge for outpatient follow-up Dr. Goodman Paredes Cell phone [phone] Attestations Medical Necessity Statement*: puncture wound with abscess Coding Level of Care Code Acute Tire And Lube Technician for [facility] Diagnoses Cellulitis and abscess of foot L03.119; L02.619 Puncture wound of foot S91.331A Encounter type: initial encounter Laterality: right
[2020-05-29] MEDS: acetaminophen 325 mg Tablet PO (11:26)
--- NOTE | 2020-05-29 11:26 | XRR_ITS ---
PROCEDURE INFORMATION: Exam: XR Right Foot Exam date and time: 05/29/2020 12:23 PM Age: 44 years old Clinical indication: Prior surgery; Surgery date: Post-operative (0-2 days); Surgery type: Abscess near great toe; Additional info: Post op TECHNIQUE: Imaging protocol: XR Right foot. Views: 3 or more views. COMPARISON: CT foot RT w con [id number] 05/26/2020 7:32 PM FINDINGS: Bones/joints: Normal. Soft tissues: Normal. XR/XR foot RT min 3V* [id number] IMPRESSION: No evidence of osteomyelitis is seen.
[2020-05-29] MEDS: dextrose 5%-sod chloride 0.45% 1,000 ML 75 ML IV (13:06)
--- NOTE | 2020-05-29 13:27 | PC.NURSE ---
Patient reported having some acid reflux. Contacted Dr. Brennan and received verbal orders for PO Protonix 40mg daily with the first dose starting now. RBVO and placed into the patients chart. Administered to patient.
[2020-05-29] MEDS: pantoprazole DR 40 mg Tablet PO (14:03)
--- NOTE | 2020-05-29 23:07 | P.PN_ITS ---
Subjective Subjective: Interval history: She is doing well. Was seen by podiatry this morning, dressing changed. States pain is under control. Denies chest pain. No trouble breathing. Vitals/I&O/Wt Last Vital Signs Temp 97.9 F 05/29/20 20:00 Pulse 95 05/29/20 20:00 Resp 14 05/29/20 21:13 BP 115/77 05/29/20 20:00 Pulse Ox 96 05/29/20 20:00 05/29/20 05/29/20 05/30/20 14:59 22:59 06:59 Intake Total 1310 / 1310 490 / 1800 Output Total 1000 / 1000 1920 / 2920 Balance 310 / 310 -1430 / -1120 Physical Exam Const: COMMON NORMALS: no acute distress and patient oriented x3 HENMT: COMMON NORMALS: oropharynx normal Neck/C-Spine: COMMON NORMALS: no JVD Resp: COMMON NORMALS: normal respiratory effort and clear to auscultation bilaterally AUSCULTATION: clear to auscultation bilaterally Cardio: COMMON NORMALS: no JVD, regular rhythm, S1 normal heart sound present, S2 normal heart sound present and No murmurs present (Cardio) RHYTHM: regular rhythm HEART SOUNDS: S1 normal heart sound present and S2 normal heart sound present GI: COMMON NORMALS: Normal to inspection, nondistended, normoactive bowel sounds present, Soft to palpation and non-tender PALPATION: Yes Soft to palpation Extremity: COMMON NORMALS: no joint enlargement and no pedal edema OTHER: Right lower extremity in fresh dressing Neuro: COMMON NORMALS: patient oriented x3 and moves all extremities Skin: COMMON NORMALS: no rashes or lesions noted GENERAL SKIN EXAM: no rashes or lesions noted Data : 05/29/20 05:46 05/29/20 05:46 Micro: Microbiology 05/28/20 07:45 Urine Culture - Preliminary Urine,Clean Catch 05/26/20 17:45 Wound Culture - Preliminary Other Source Methicillin Resis Staph Aureus 05/27/20 10:51 Gram Stain - Final Foot - #1 Tissue Culture - Preliminary Methicillin Resis Staph Aureus A&P Assessment and plan (1) Cellulitis and abscess of foot: Reportedly still has periwound erythema. Due to extent of the infection recommendation for additional IV antibiotics as per podiatry assessment. Appreciate recommendations and follow-up. Continue IV vancomycin for MRSA in the wound cultures. Follow-up blood cultures. Urine cultures. Empiric Flagyl. Status post incision and debridement of right foot. No bone involvement was appreciated. Resolving sepsis. Tachycardia improving. Fever appears resolved. Resolved leukocytosis. Status: Acute (2) Abscess of foot: Status: Acute (3) Substance abuse: IV drug abuse: Patient endorses to methamphetamine and marijuana, She injects methamphetamine in upper extremities She is struggling and failing to quit. Options for rehabilitation by web content & social media manager. Status: Acute Additional A&P Information Hematuria: Repeat UA with improving hematuria. Now microscopic. Follow up again outpatient. Essential hypertension: Currently normotensive, continue home lisinopril Attestations Medical Necessity Statement*: Continue admission for assessment management of extensive right foot infection requiring frequent foot reassessment by podiatry, continued IV antibiotics as per recommendation, follow-up of cultures, and lady with active IV drug use. Coding Level of Care Code Acute Acid Adjuster for [facility] Diagnoses Cellulitis and abscess of foot L03.119; L02.619 Abscess of foot L02.619 Substance abuse F19.10
[2020-05-30] VITALS (11 sets, daily range): BP systolic 113–127; BP diastolic 68–86; PULSE 76–89; RESP 16–19; TEMP 36.6–37.1; O2SAT 96–100
[2020-05-30] MEDS: morphine 4 mg/mL SDV 1 mL 2 MG IVP ×6 (01:15→22:34)
[2020-05-30] MEDS: heparin 5,000 unit/mL INJ 1 mL 5000 UNIT SUBCUT ×4 (01:15→23:30)
[2020-05-30] MEDS: vancomycin 1,000 MG in sodium chloride 0.9% 250 ML 250 MG IV ×3 (01:43→17:13)
--- NOTE | 2020-05-30 03:38 | PC.NURSE ---
Wound dressing change Dressing changed at 2230. Using aseptic technique pervious dressing was removed and replaced with 4x4's soaked in Dakin's which was covered with curlex, and an cecil wrap.
[2020-05-30] MEDS: metroNIDAZOLE IV 500 MG/100 ML PREMIX 100 MG IV ×3 (05:29→22:33)
[2020-05-30 05:59] LABS: Basophils % 0.9 %; Eosinophils # 0.3 10^3/uL (0.0-0.8); Eosinophils % 5.7 %; Hematocrit 40.3 % (37.0-47.0); Hemoglobin 13.4 g/dL (11.5-15.3); Lymphocytes % 43.3 %; Mean Corpuscular HGB Conc 33.3 g/dL (30.0-36.0); Mean Corpuscular Hemoglobin 31.8 pg (28.0-34.0); Mean Corpuscular Volume 95.5 fL (81-99); Mean Platelet Volume 9.4 fL (7.4-10.4); Monocytes # 0.3 10^3/uL (0.2-0.9); Monocytes % 7.2 %; Neutrophils # 1.87 10^3/uL (1.8-7.7); Neutrophils % 40.5 %; Nucleated Red Blood Cells % 0 %; Platelet Count 239 10^3/cmm (130-400); Red Blood Count 4.22 10^6/uL (4.1-5.3); Red Cell Distribution Width 12.1 % (12.1-15.1); White Blood Count 4.6 10^3/uL (4.0-10.0)
[2020-05-30 06:07] LABS: Alanine Aminotransferase 11 U/L (0-33); Albumin Level 3.1 g/dL (3.5-5.2); Alkaline Phosphatase 79 IU/L (35-105); Anion Gap 12.7 (5-19); Aspartate Amino Transferase 12 U/L (0-32); Blood Urea Nitrogen 13 mg/dL (6-20); Calcium 8.5 mg/dL (8.5-10.5); Carbon Dioxide 25 mmol/L (22-29); Chloride 102 mmol/L (98-107); Globulin 2.5 g/dL (1.3-4.6); Glomerular Filtration Rate 174.2 mL/min (90-130); Glucose 88 mg/dL (65-115); Osmolality Calculated 280 mOsm/kg (285-295); Potassium 4.7 mmol/L (3.5-5.1); Sodium 135 mmol/L (136-145); Total Bilirubin 0.2 mg/dL (0.15-1.2); Total Protein 5.6 g/dL (6.6-8.7)
[2020-05-30 06:26] LABS: Slide Review Slide Review Perform
--- NOTE | 2020-05-30 07:39 | P.PN_ITS ---
Subjective Subjective: Interval history: Patient seen bedside this morning she is 3 days status post I&D of her right foot due to puncture wound, abscess and cellulitis. Pain at the right foot is improving. Denies any acute events overnight. Patient denies any subjective nausea, vomiting, fever, chills, shortness of breath or chest pain. Vitals/I&O/Wt Last Vital Signs Temp 97.8 F 05/30/20 04:00 Pulse 76 05/30/20 04:00 Resp 16 05/30/20 05:32 BP 113/69 05/30/20 04:00 Pulse Ox 96 05/30/20 04:00 05/29/20 05/30/20 05/30/20 22:59 06:59 14:59 Intake Total 490 / 1800 450 / 2250 Output Total 1920 / 2920 2500 / 5420 Balance -1430 / -1120 -2050 / -3170 Physical Exam Narrative: EXAM NARRATIVE: GENERAL: Patient is alert and oriented ?3 and in no acute distress. The following is a focused right lower extremity exam. VASCULAR: Dorsalis pedis +2 posterior tibial arteries +2. Capillary refill time less than 2 3 seconds to the distal hallux bilaterally. Calf is supple and nontender proximally and distally. Edema to the right forefoot this is improving there are some skin lines present at this time. NEUROLOGICAL: Protective sensation intact 10/10 sites, tested with [place] Yohan monofilament to bilateral feet. DERMATOLOGICAL: Jesus drain left intact at the right first intermetatarsal space no purulent drainage appreciated. Wound exposed to capsule at the medial aspect of the right first metatarsophalangeal joint measures 5 cm x 2 cm x 0.5 cm without purulent drainage there is a soft tissue deficit. Some subsidence of erythema at the right forefoot. At this point erythematous localized to the metatarsals, there is no streaking to the midfoot or ankle. MUSCULOSKELETAL: Pain with range of motion of the right first metatarsophalangeal joint. Patient is able to dorsiflex and plantarflex ankle pain-free without crepitus. No crepitus on palpation of the skin. Able to wiggle toes on command. Data : 05/30/20 05:21 05/30/20 05:21 Micro: Microbiology 05/28/20 07:45 Urine Culture - Preliminary Urine,Clean Catch 05/26/20 17:45 Wound Culture - Preliminary Other Source Methicillin Resis Staph Aureus 05/27/20 10:51 Gram Stain - Final Foot - #1 Tissue Culture - Preliminary Methicillin Resis Staph Aureus A&P Assessment and plan (1) Cellulitis and abscess of foot: Status: Acute (2) Puncture wound of foot: Status: Acute Qualifiers: Encounter type: initial encounter Laterality: right Qualified Code(s): S91.331A - Puncture wound without foreign body, right foot, initial encounter 44-year-old female with puncture wound and abscess with cellulitis to the right foot. 3 days status post I&D. -Incision and debridement performed 05/27/20 -Soft tissue culture taken intraoperatively at the right foot grew MRSA. -Recommend continuing empiric antibiotics -From my standpoint should she continue to have some improvement tomorrow then discharge planning on oral antibiotics would be recommended. -Patient to use OrthoWedge heel when ambulating, elevate right foot while at rest -Will continue Dakins quarter percent wet to dry dressing changes TID for now -Will need wound care referral at discharge for outpatient follow-up Dr. Goodman BostonPEmeliaM. Cell phone [phone] Attestations Medical Necessity Statement*: Puncture wound cellulitis and abscess right foot Coding Level of Care Code Acute Assembler 1St Shift for [facility] Diagnoses Cellulitis and abscess of foot L03.119; L02.619 Puncture wound of foot S91.331A Encounter type: initial encounter Laterality: right
[2020-05-30] MEDS: dextrose 5%-sod chloride 0.45% 1,000 ML 75 ML IV (08:53)
[2020-05-30] MEDS: lisinopril 5 mg Tablet 10 MG PO (08:53)
[2020-05-30] MEDS: aspirin 81 mg EC Tablet PO (08:53)
[2020-05-30] MEDS: pantoprazole DR 40 mg Tablet PO (08:53)
[2020-05-30] MEDS: sennosides-docusate Tablet 1 TAB PO (08:53)
[2020-05-30 12:11] LABS: HIV 1 & 2 Antibody Non-Reactive (Non-Reactiv); HIV 1 & 2 Antigen Non-Reactive (Non-Reactiv)
[2020-05-30] MEDS: hyDROXYzine 25 mg Capsule PO (12:11)
[2020-05-30 13:33] LABS: Hepatitis A Antibody IgM Non-Reactive (Nonreactive); Hepatitis B Core IgM Non-Reactive (Nonreactive); Hepatitis B Surface Antigen Non-Reactive (Nonreactive)
[2020-05-30 13:37] LABS: Hepatitis C Virus Antibody Reactive (Nonreactive)
--- NOTE | 2020-05-30 15:29 | PM.PN ---
Subjective Subjective: Interval history: Patient was seen this morning, afebrile overnight, no new rashes, urinating appropriately, no diarrhea, she tells me that Dr. Barger plans on keeping her another night for IV antibiotics Vitals/I&O/Wt Last Vital Signs Temp 98.7 F 05/30/20 15:14 Pulse 83 05/30/20 15:14 Resp 17 05/30/20 15:14 BP 126/86 05/30/20 15:14 Pulse Ox 100 05/30/20 15:14 05/30/20 05/30/20 05/30/20 06:59 14:59 22:59 Intake Total 1550 / 3350 1987.5 / 1987.5 Output Total 2500 / 5420 1700 / 1700 Balance -950 / -2070 287.5 / 287.5 Physical Exam Const: COMMON NORMALS: no acute distress and patient oriented x3 HENMT: COMMON NORMALS: normocephalic HEAD & SCALP: normocephalic Neck/C-Spine: COMMON NORMALS: no JVD Resp: COMMON NORMALS: normal respiratory effort, No retractions, No use of accessory muscles and clear to auscultation bilaterally AUSCULTATION: clear to auscultation bilaterally Cardio: COMMON NORMALS: no JVD, regular rate, regular rhythm, S1 normal heart sound present and S2 normal heart sound present RATE: regular rate RHYTHM: regular rhythm HEART SOUNDS: S1 normal heart sound present and S2 normal heart sound present GI: COMMON NORMALS: Normal to inspection, nondistended, normoactive bowel sounds present, Soft to palpation, non-tender, No hepatosplenomegaly present, no masses and no bruits PALPATION: Yes Soft to palpation and Yes No hepatosplenomegaly present Extremity: COMMON NORMALS: no pedal edema NARRATIVE EXTREMITY EXAM: Right lower extremity wrapped Neuro: COMMON NORMALS: patient oriented x3 Psych: COMMON NORMALS: mental status grossly normal Data : 05/30/20 05:21 05/30/20 05:21 Micro: Microbiology 05/27/20 10:51 Gram Stain - Final Foot - #1 Tissue Culture - Final Methicillin Resis Staph Aureus 05/26/20 17:45 Wound Culture - Final Other Source Methicillin Resis Staph Aureus 05/28/20 07:45 Urine Culture - Final Urine,Clean Catch A&P Assessment and plan (1) Cellulitis and abscess of foot: Status post incision and drainage of right foot, by Dr. Barger Sepsis resolved, afebrile, leukocytosis resolved Continue IV vancomycin for MRSA in the wound cultures. Follow-up blood cultures. Urine cultures. Empiric Flagyl. Status: Acute (2) Abscess of foot: Status: Acute (3) Substance abuse: IV drug abuse: Patient endorses to methamphetamine and marijuana, She injects methamphetamine in upper extremities She is struggling and failing to quit. Options for rehabilitation by social services manager. Status: Acute Additional A&P Information Hematuria: Repeat UA with improving hematuria. Now microscopic. Follow up again outpatient. Essential hypertension: Currently normotensive, continue home lisinopril Attestations Medical Necessity Statement*: Patient requires hospitalization for cellulitis and abscess of foot, requiring IV antibiotics Coding Level of Care Code Acute Named Account [facility] Diagnoses Cellulitis and abscess of foot L03.119; L02.619 Abscess of foot L02.619 Substance abuse F19.10
--- NOTE | 2020-05-30 15:31 | PC.CHAP ---
Pastoral Care Encounter/Spiritual Assessment Type of Contact [] Declined layout mechanic visit [] Patient/Family/Request visit [] Outpatient visit [x] Follow-up visit [] Physician referral [] Code/Alert [] Routine visit [] Staff referral [] Actively dying [] Patient sleeping [] Family support [] [] Out of room [] Palliative care [] [] Receiving care in room [] Pre-surgical visit [] Trauma [] Long length of stay [] ICU visit [] Other: Relational/Emotional Strength [] Patient feels connected with others/family/visitors/staff [] Distress [] Loneliness/isolation [] Abandonment Spirituality of Patient [] Person of Rach [] Attends Quaker of their Rach [] Believes in Prayer [] Reads Bible or Jew materials [] There are Spiritual issues to be addressed Communications Writer Interventions [] Prayer [] Active listening [] Non-anxious presence [] Spiritual/emotional support [] Crisis/trauma care [] Spiritual counseling [] Bereavement support [] Provided bereavement packet [] Provided Bible/devotional materials [] Provided toy/stuffed animal, coloring book to patient or family member [] Provided Communion [] Anointing/[place] [] Salvation [] Completed spiritual assessment [] Other: Impact on Illness or Injury [] Angry [] Fearful [] Anxious [] Often cries [] Exhaustion [] Unable to work [] Unable to attend yazidism [] Unable to walk/stand [] Unable to read [] Unable to drive [] Unable to eat/drink [] Unable to sleep [] Unable to be with family [] Patient intubated [] Other: Summary Time spent with patient
[2020-05-30] MEDS: acetaminophen 325 mg Tablet PO (17:13)
[2020-05-31] VITALS: BP 119/78; PULSE 81; RESP 18; TEMP 36.9; O2SAT 98
[2020-05-31] MEDS: vancomycin 1,000 MG in sodium chloride 0.9% 250 ML 250 MG IV ×2 (02:38→09:09)
[2020-05-31 02:41] VITALS: RESP 16
[2020-05-31] MEDS: morphine 4 mg/mL SDV 1 mL 2 MG IVP ×3 (02:41→12:17)
[2020-05-31] MEDS: acetaminophen 325 mg Tablet PO (02:41)
[2020-05-31 03:36] LABS: Basophils # 0.1 10^3/uL (0.0-0.1); Basophils % 0.8 %; Eosinophils # 0.3 10^3/uL (0.0-0.8); Eosinophils % 5.2 %; Hematocrit 33.7 % (37.0-47.0); Lymphocytes # 2.6 10^3/uL (0.8-4.8); Lymphocytes % 43.1 %; Mean Corpuscular HGB Conc 32.6 g/dL (30.0-36.0); Mean Corpuscular Hemoglobin 31.8 pg (28.0-34.0); Mean Corpuscular Volume 97.4 fL (81-99); Mean Platelet Volume 8.5 fL (7.4-10.4); Monocytes # 0.5 10^3/uL (0.2-0.9); Monocytes % 8.3 %; Neutrophils # 2.39 10^3/uL (1.8-7.7); Neutrophils % 39.2 %; Nucleated Red Blood Cells % 0 %; Platelet Count 401 10^3/cmm (130-400); Red Blood Count 3.46 10^6/uL (4.1-5.3); Red Cell Distribution Width 12.4 % (12.1-15.1); White Blood Count 6.1 10^3/uL (4.0-10.0)
[2020-05-31 04:00] VITALS: BP 119/76; PULSE 84; RESP 16; TEMP 36.8; O2SAT 96
[2020-05-31 04:34] LABS: Alanine Aminotransferase 20 U/L (0-33); Albumin Level 2.9 g/dL (3.5-5.2); Alkaline Phosphatase 71 IU/L (35-105); Aspartate Amino Transferase 24 U/L (0-32); Blood Urea Nitrogen 18 mg/dL (6-20); Calcium 8.5 mg/dL (8.5-10.5); Carbon Dioxide 25 mmol/L (22-29); Chloride 101 mmol/L (98-107); Globulin 3.2 g/dL (1.3-4.6); Glomerular Filtration Rate 134.7 mL/min (90-130); Glucose 97 mg/dL (65-115); Osmolality Calculated 280 mOsm/kg (285-295); Sodium 134 mmol/L (136-145); Total Bilirubin 0.2 mg/dL (0.15-1.2); Total Protein 6.1 g/dL (6.6-8.7)
[2020-05-31] MEDS: metroNIDAZOLE IV 500 MG/100 ML PREMIX 100 MG IV (06:12)
[2020-05-31 07:37] VITALS: BP 145/76; PULSE 20; RESP 18; TEMP 36.6; O2SAT 97
[2020-05-31] MEDS: lisinopril 5 mg Tablet 10 MG PO (09:09)
[2020-05-31] MEDS: sennosides-docusate Tablet 1 TAB PO (09:09)
[2020-05-31] MEDS: aspirin 81 mg EC Tablet PO (09:09)
[2020-05-31] MEDS: heparin 5,000 unit/mL INJ 1 mL 5000 UNIT SUBCUT (09:10)
[2020-05-31] MEDS: pantoprazole DR 40 mg Tablet PO (09:10)
[2020-05-31 09:35] LABS: Vancomycin Trough 17.5 ug/mL (10-15)
[2020-05-31 11:14] VITALS: BP 145/76; PULSE 81; RESP 18; TEMP 36.6; O2SAT 97
--- NOTE | 2020-05-31 11:56 | P.DS_ITS ---
Discharge Providers Date of Admission: 05/26/20 20:30 Date of Discharge: May 31, 2020 Attending Provider at Admission: Amira hWitehead MD Attending Provider at Discharge: Ab Pablo MD Diagnoses at Discharge Discharge Diagnosis (1) Cellulitis and abscess of foot: Status: Acute (2) Abscess of foot: Status: Acute (3) Substance abuse: Status: Acute Reason for Visit Reason for Visit: Cellulitis Related Complications in Right Foot Hospital Course Hospital Course This is a 44-year-old female who presents to [facility] due to concerns for right foot puncture wound and abscess with cellulitis, status post incision and debridement by Dr. Barger, intraoperative cultures were positive for MRSA, was managed as inpatient with IV antibiotics, clinically improved. Discharged on 10 remaining days of doxycycline Augmentin, follow-up with wound care, continue OrthoWedge heel when ambulating, elevate right foot while at rest, Dakin's quarter percent wet to dry dressings 3 times daily. Patient's hepatitis C antibody was reactive, however she has told us that she has been treated for hepatitis C in the past, her genotype back in 05/13 was 3, her PCR was 5.6. I will have patient follow-up with her primary care provider for further follow-up. Physical Exam Const: COMMON NORMALS: no acute distress and patient oriented x3 HENMT: COMMON NORMALS: normocephalic HEAD & SCALP: normocephalic Neck/C-Spine: COMMON NORMALS: no JVD Resp: COMMON NORMALS: normal respiratory effort, No retractions, No use of accessory muscles and clear to auscultation bilaterally AUSCULTATION: clear to auscultation bilaterally Cardio: COMMON NORMALS: no JVD, regular rate, regular rhythm, S1 normal heart sound present and S2 normal heart sound present RATE: regular rate RHYTHM: regular rhythm HEART SOUNDS: S1 normal heart sound present and S2 normal heart sound present GI: COMMON NORMALS: Normal to inspection, nondistended, normoactive bowel sounds present, Soft to palpation, non-tender, No hepatosplenomegaly present, no masses and no bruits PALPATION: Yes Soft to palpation and Yes No hepatosplenomegaly present Extremity: COMMON NORMALS: no pedal edema NARRATIVE EXTREMITY EXAM: Right foot wrapped and bandaged Neuro: COMMON NORMALS: patient oriented x3 Psych: COMMON NORMALS: mental status grossly normal Discharge Data Data Completed and Pending: Completed Studies During Hospitalization Category Date Time Status CT foot RT w con [id number] Urgent Cat Scan 05/26/20 19:01 Completed XR foot RT min 3V * [id number] Routine Exams 05/29/20 11:26 Completed Pending at discharge Category Date Time Status Blood Culture Sta t Lab 05/26/20 18:15 Results Labs from last 24 hours 05/31/20 05/31/20 05/31/20 08:54 03:25 03:25 WBC 6.1 RBC 3.46 L Hgb 11.0 L Hct 33.7 L MCV 97.4 MCH 31.8 MCHC 32.6 RDW 12.4 Plt Count 401 H MPV 8.5 Neut % (Auto) 39.2 Lymph % (Auto) 43.1 [place] % (Auto) 8.3 Eos % (Auto) 5.2 Baso % (Auto) 0.8 Neut # (Auto) 2.39 Lymph # (Auto) 2.6 [place] # (Auto) 0.5 Eos # (Auto) 0.3 Baso # (Auto) 0.1 Nucleated RBC % (a uto) 0 Nucleated RBCs # 0.0 Sodium 134 L Potassium 4.0 Chloride 101 Carbon Dioxide 25 Anion Gap 12.0 BUN 18 Creatinine 0.5 GFR Calculation 134.7 H Glucose 97 Calculated Osmolal ity 280 L Calcium 8.5 Total Bilirubin 0.2 AST 24 ALT 20 Alkaline Phosphata se 71 Total Protein 6.1 L Albumin 2.9 L Globulin 3.2 Vancomycin Trough 17.5 H Hepatitis A IgM Ab Hep Bs Antigen Hep B Core IgM Ab Hepatitis C Antibo dy HIV 1&2 Ab & HIV 1 Ag HIV 1&2 Antibody 05/28/20 05/28/20 17:16 17:16 WBC RBC Hgb Hct MCV MCH MCHC RDW Plt Count MPV Neut % (Auto) Lymph % (Auto) [place] % (Auto) Eos % (Auto) Baso % (Auto) Neut # (Auto) Lymph # (Auto) [place] # (Auto) Eos # (Auto) Baso # (Auto) Nucleated RBC % (a uto) Nucleated RBCs # Sodium Potassium Chloride Carbon Dioxide Anion Gap BUN Creatinine GFR Calculation Glucose Calculated Osmolal ity Calcium Total Bilirubin AST ALT Alkaline Phosphata se Total Protein Albumin Globulin Vancomycin Trough Hepatitis A IgM Ab Non-reactive Hep Bs Antigen Non-reactive Hep B Core IgM Ab Non-reactive Hepatitis C Antibo dy Reactive H HIV 1&2 Ab & HIV 1 Ag Non-reactive HIV 1&2 Antibody Non-reactive Vitals: Last Vital Signs Temp 97.9 F 05/31/20 11:14 Pulse 81 05/31/20 11:14 Resp 18 05/31/20 11:14 BP 145/76 05/31/20 11:14 Pulse Ox 97 05/31/20 11:14 Discharge Plan Discharge Patient Disposition: Home Condition: Stable Prescriptions: New doxycycline hyclate 100 mg tablet 100 mg PO BID 10 Days Qty: 20 RF: 0 amoxicillin-pot clavulanate [Augmentin] 875-125 mg tablet 1 tab PO BID 10 Days Qty: 20 RF: 0 Continued hydrocodone-acetaminophen 5-325 mg tablet 1 tab PO TID PRN (Reason: pain) Qty: 10 RF: 0 acetaminophen 325 mg Tablet 325 mg PO QID PRN (Reason: Pain) RF: 0 aspirin [Aspir-81] 81 mg Tablet,Delayed Release (Dr/Ec) 81 mg PO DAILY RF: 0 ibuprofen 200 mg Tablet 600 mg PO Q6H PRN (Reason: Pain) RF: 0 lisinopril 5 mg Tablet 10 mg PO DAILY RF: 0 Discontinued levofloxacin 500 mg tablet 500 mg PO DAILY 7 Days RF: 0 Discharge Orders: Discharge Order (Routine); Ordered 05/31/20 Ordered By: Ab Pablo Referrals: [facility] [Provider Group] ([facility] at 1:45 pm. [facility] asks that when you get there to have them change your last name to the correct name. If you need to reschedule please call them at [phone].) WOUND CARE CLINIC, [Staff Physician] - 4-7 days Activity Restrictions/Additional Instructions: -Please follow-up with primary care provider for checking hepatitis C PCR and genotype -Please follow-up with wound care clinic in the next week -Continue to use OrthoWedge heel when ambulating, elevate right foot while rest -Continue Dakin's quarter percent wet to dry dressing changes 3 times daily for now -Continue antibiotics as above for the next 10 days -If any worsening foot swelling, redness, fevers come back to the emergency room Discharge Attestations Time Spent in Discharge Care*: less than 30 min Quality Metrics Clinical Quality Measures During this hospital stay, did patient experience: None Coding Level of Care Code Acute [facility] note Diagnoses Cellulitis and abscess of foot L03.119; L02.619 Abscess of foot L02.619 Substance abuse F19.10
--- NOTE | 2020-05-31 13:09 | P.PN_ITS ---
Subjective Subjective: Interval history: Patient seen bedside this morning she is 4 days status post I&D of her right foot due to puncture wound, abscess and cellulitis. Pain at the right foot is improving. Denies any acute events overnight. Patient denies any subjective nausea, vomiting, fever, chills, shortness of breath or chest pain. Vitals/I&O/Wt Last Vital Signs Temp 97.9 F 05/31/20 11:14 Pulse 81 05/31/20 11:14 Resp 18 05/31/20 11:14 BP 145/76 05/31/20 11:14 Pulse Ox 97 05/31/20 11:14 05/30/20 05/31/20 05/31/20 22:59 06:59 14:59 Intake Total 490 / 2477.5 316.667 / 2794.167 650 / 650 Output Total 2500 / 4200 Balance -2010 / -1722.5 316.667 / -1405.833 650 / 650 Physical Exam Narrative: EXAM NARRATIVE: GENERAL: Patient is alert and oriented ?3 and in no acute distress. The following is a focused right lower extremity exam. VASCULAR: Dorsalis pedis +2 posterior tibial arteries +2. Capillary refill time less than 2 3 seconds to the distal hallux bilaterally. Calf is supple and nontender proximally and distally. Edema to the right forefoot this is improving there are some skin lines present at this time. NEUROLOGICAL: Protective sensation intact 10/10 sites, tested with [place] Yohan monofilament to bilateral feet. DERMATOLOGICAL: Jesus drain left intact at the right first intermetatarsal s pace no purulent drainage appreciated. Wound exposed to capsule at the medial aspect of the right first metatarsophalangeal joint measures 5 cm x 2 cm x 0.5 cm without purulent drainage there is a soft tissue deficit. Some subsidence of erythema at the right forefoot. Significantly improved erythema, skin lines present due to decreased edema. MUSCULOSKELETAL: Pain with range of motion of the right first metatarsophalangeal joint. Patient is able to dorsiflex and plantarflex ankle pain-free without crepitus. No crepitus on palpation of the skin. Able to wiggle toes on command. Data : 05/31/20 03:25 05/31/20 03:25 Micro: Microbiology 05/27/20 10:51 Gram Stain - Final Foot - #1 Tissue Culture - Final Methicillin Resis Staph Aureus 05/26/20 17:45 Wound Culture - Final Other Source Methicillin Resis Staph Aureus A&P Assessment and plan (1) Cellulitis and abscess of foot: Status: Acute (2) Puncture wound of foot: Status: Acute Qualifiers: Encounter type: subsequent encounter Laterality: right Qualified Code(s): S91.331D - Puncture wound without foreign body, right foot, subsequent encounter 44-year-old female with puncture wound and abscess with cellulitis to the right foot. 4 days status post I&D. -Incision and debridement performed 05/27/20 -Soft tissue culture taken intraoperatively at the right foot grew MRSA. -Okay for discharge on oral antibiotics, and prescribed doxycycline and Augmentin. -[employer] will be delivering a offloading shoe today. -Will discontinue Dakin's wet-to-dry, Morrison drain was removed. -Until she sees wound care I recommend alginate dressing once daily, on the floor we are utilizing Maxorb AG. Maxorb AG directly to the wound bed followed by 4 x 4, Kerlix and Gomez wrap. -Will need wound care referral at discharge for outpatient follow-up Dr. Goodman Azevedo. Cell phone [phone] Attestations Medical Necessity Statement*: Puncture wound cellulitis and abscess Coding Level of Care Code Acute Substation Operator Apprentice for [facility] Sherie Diagnoses Cellulitis and abscess of foot L03.119; L02.619 Puncture wound of foot S91.331D Encounter type: subsequent encounter Laterality: right
--- NOTE | 2020-05-31 14:46 | PC.NURSE ---
pt verbalizes understanding of discharge instructions, wound care, medications, and follow up appointments. all questions at this time answered. pt stated that she was going to call an Uber and would like to wait at the entrance. patient wheeled down by HOOP CUTTER.
[2020-05-31 14:50] VITALS: BP 145/76; PULSE 81; RESP 18; TEMP 36.6; O2SAT 97
== END 2020-05-31 14:51 | disposition home or self-care (01) | DRG 571 ==
LOC: ER 20:33 → MEDSURG 21:04
PROVIDERS: Internal Medicine; Podiatrist Foot & Ankle Surgery; Admitting Provider Internal Medicine; Emergency Provider Family Medicine; Visit Provider Family Medicine
PROC: 0JBQ0ZZ Excision of Right Foot Subcutaneous Tissue and Fascia, Open Approach (ICD-10-PCS; principal; 2020-05-27 11:20)
DX: L03.115 Cellulitis of right lower limb (principal); L02.611 Cutaneous abscess of right foot; S01.03XA Puncture wound without foreign body of scalp, initial encounter; X58.XXXA Exposure to other specified factors, initial encounter; F15.10 Other stimulant abuse, uncomplicated; F12.10 Cannabis abuse, uncomplicated; B19.20 Unspecified viral hepatitis C without hepatic coma; B95.62 Methicillin resistant Staphylococcus aureus infection as the cause of diseases classified elsewhere; F32.9 Major depressive disorder, single episode, unspecified; F41.9 Anxiety disorder, unspecified; K21.9 Gastro-esophageal reflux disease without esophagitis; Z87.442 Personal history of urinary calculi; Z86.14 Personal history of Methicillin resistant Staphylococcus aureus infection; I10 Essential (primary) hypertension; F43.10 Post-traumatic stress disorder, unspecified; G47.30 Sleep apnea, unspecified; F17.210 Nicotine dependence, cigarettes, uncomplicated; R31.9 Hematuria, unspecified; Z79.891 Long term (current) use of opiate analgesic; Z79.82 Long term (current) use of aspirin
CPT/HCPCS: 10060; 36415; 73630; 73701; 80053; 80074; 80202; 80306; 81001; 81025; 83605; 84703; 85025; 85651; 87040; 87070; 87077; 87086; 87176; 87186; 87205; 87635; 87806; 96365; 96367; 96372; 96375; 96376; 99285; J1644; J2270; J3010; J3370; J3490; J7030; J7050; J7799; Q9967; S0030

== ENCOUNTER 2020-06-01 14:28 | Outpatient (CLI) | payer SELFPAY | END 2020-06-01 14:29 | disposition home or self-care (01) | LOC: WOUND 14:29 | PROVIDERS: Visit Provider Thoracic Surgery (Cardiothoracic Vascular Surgery) | DX: L97.512 Non-pressure chronic ulcer of other part of right foot with fat layer exposed (principal) | CPT/HCPCS: 11042; 87070; 87077; 87176; 87186; 87205 ==

== ENCOUNTER 2020-06-08 14:14 | Outpatient (CLI) | payer SELFPAY | END 2020-06-08 14:15 | disposition home or self-care (01) | LOC: WOUND 14:15 | PROVIDERS: Visit Provider Nurse Practitioner Family | DX: T81.89XA Other complications of procedures, not elsewhere classified, initial encounter (principal) | CPT/HCPCS: 11042 ==

== ENCOUNTER 2020-06-15 14:42 | Outpatient (CLI) | payer SELFPAY | END 2020-06-15 14:43 | disposition home or self-care (01) | LOC: WOUND 14:43 | PROVIDERS: Visit Provider Thoracic Surgery (Cardiothoracic Vascular Surgery) | DX: T81.89XA Other complications of procedures, not elsewhere classified, initial encounter (principal) | CPT/HCPCS: 11042 ==

== ENCOUNTER 2020-06-29 13:40 | Outpatient (CLI) | payer SELFPAY | END 2020-06-29 13:41 | disposition home or self-care (01) | LOC: WOUND 13:40 | PROVIDERS: Visit Provider Thoracic Surgery (Cardiothoracic Vascular Surgery) | DX: T81.89XA Other complications of procedures, not elsewhere classified, initial encounter (principal) | CPT/HCPCS: 11042 ==

== ENCOUNTER 2020-07-06 13:27 | Outpatient (CLI) | payer SELFPAY | END 2020-07-06 13:28 | disposition home or self-care (01) | LOC: WOUND 13:28 | PROVIDERS: Visit Provider Thoracic Surgery (Cardiothoracic Vascular Surgery) | DX: T81.89XA Other complications of procedures, not elsewhere classified, initial encounter (principal) | CPT/HCPCS: 11042 ==

== ENCOUNTER 2020-07-12 13:58 | Outpatient (CLI) | payer SELFPAY | END 2020-07-12 13:59 | disposition home or self-care (01) | LOC: WOUND 13:58 | PROVIDERS: Visit Provider Thoracic Surgery (Cardiothoracic Vascular Surgery) | DX: Z09 Encounter for follow-up examination after completed treatment for conditions other than malignant neoplasm (principal) | CPT/HCPCS: 99212 ==

== ENCOUNTER → 2021-09-07 08:50 | Outpatient (BNVA) | payer OTHER, SELFPAY | PROVIDERS: Visit Provider Nurse Practitioner Psychiatric/Mental Health | DX: Z03.89 Encounter for observation for other suspected diseases and conditions ruled out (principal); Z79.899 Other long term (current) drug therapy | CPT/HCPCS: 80053; 80306; 81025; 84439; 84443; 85025 ==

== ENCOUNTER → 2021-09-18 13:21 | Outpatient (BNVA) | payer OTHER, SELFPAY | PROVIDERS: Visit Provider Counselor Mental Health | DX: F41.1 Generalized anxiety disorder (principal); Z79.899 Other long term (current) drug therapy | CPT/HCPCS: 80061; 83036 ==

== ENCOUNTER 2021-11-14 06:53 | Outpatient (CLI) | payer MEDICAID, SELFPAY ==
[2021-10-04 11:55] VITALS: BP 109/59; BMI 37.9
--- NOTE | 2021-11-14 07:00 | US_ITS ---
WS: [id number] RIGHT UPPER QUADRANT ULTRASOUND HISTORY: RUQ PAIN COMPARISON: 05/20/2018 Liver: 13.7 cm in length. Normal size liver. Coarsened echotexture from hepatic steatosis. No mass. T he entire liver is not well visualized due to hepatic steatosis and body habitus. Portal Vein: Normal hepatopetal flow with monophasic waveform. Gallbladder: Gallbladder is difficult to identify as a distended structure. There is a large amount o f shadowing from the region of the gallbladder fossa. Small amount of fluid noted within the gallblad nabil. Suspect this is probably contracted gallbladder with stones. Stones were identified on 05/20/2018 within the gallbladder. No history of cholecystectomy. CBD: 0.4 cm Pancreas: Incompletely visualized. Tail is not seen. Right kidney: 9.5 cm in length. Normal size and echogenicity. No hydronephrosis or mass. Aorta and IVC: Limited by body habitus. No ascites. US/US gall bladder [id number] IMPRESSION: 1. Contracted gallbladder with stones in the gallbladder fossa. Consider surgi umesh evaluation. 2. No bile duct dilatation. 3. Hepatic steatosis.
== END 2021-11-14 06:54 | disposition home or self-care (01) ==
LOC: RAD 06:54
PROVIDERS: Visit Provider Family Medicine
DX: R10.11 Right upper quadrant pain (principal); K76.0 Fatty (change of) liver, not elsewhere classified
CPT/HCPCS: 76705

== ENCOUNTER 2022-02-22 10:03 | Outpatient (CLI) | payer OTHER, SELFPAY ==
[2021-10-04 11:55] VITALS: BP 109/59; BMI 37.9
--- NOTE | 2022-02-22 10:13 | XR_ITS ---
WS: [id number] Lumbar spine, 3 views, 02/22/2022 Clinical Data: BACK PAIN Comparison: Lumbar spine, 10/24/2019 Findings: No compression fractures are seen. There is disc narrowing at L4-L5 with a subluxation of 0.8 cm of L 4 on L5. There is anterior osteophyte spurring of all the lumbar vertebral bodies.. The transverse pr ocesses and SI joints are normal. The patient is breathing during the examination but the gallstones are still probably present. XR/XR lumbar spine 2-3V* [id number] Impression: 1. Degenerative disc narrowing at L4-L5 with anterior subluxation of 0.8 cm. 2. Moderate osteoarthritis of all the lumbar vertebral bodies.
== END 2022-02-22 10:04 | disposition home or self-care (01) ==
LOC: RAD 10:03
PROVIDERS: Visit Provider Dermatology
DX: Z02.71 Encounter for disability determination (principal); S33.140A Subluxation of L4/L5 lumbar vertebra, initial encounter; X58.XXXA Exposure to other specified factors, initial encounter
CPT/HCPCS: 72100

== ENCOUNTER 2022-04-09 12:59 | Outpatient (CLI) | payer MEDICAID, SELFPAY ==
[2021-10-04 11:55] VITALS: BP 109/59; BMI 37.9
--- NOTE | 2022-04-09 13:10 | MR_ITS ---
WS: [id number] MRI LUMBAR SPINE NONCONTRAST TECHNIQUE: Sagittal T1, T2 and STIR imaging. Axial T1 and T2 imaging. CLINICAL INFORMATION: BACK LEG PAIN COMPARISON: None. FINDINGS: Mild lumbar curve. No acute compression. Slight anterolisthesis L4 on L5. Disc bulging worse L4-L5 an d L5-S1. Small central disc protrusions in the lower thoracic spine at T8-T9 T10-T11 with mild centra l canal stenosis. Small shallow central protrusion T12-L1. L1-L2: Normal. L2-L3: No significant disc bulging. Mild facet arthropathy. Spinal canal and foramen are patent. L3-L4: Mild annular bulging. Mild facet arthropathy. Tiny bilateral foraminal protrusions with mild b ilateral foraminal narrowing. Mild facet arthropathy. L4-L5: Mild annular bulging. Encroachment traversing L5 nerve roots bilaterally RIGHT greater than LE FT. Moderate facet arthropathy. Moderate RIGHT greater than LEFT foraminal narrowing. Impingement on the exiting L4 nerve roots bilaterally. Moderate facet arthropathy with small facet effusions. L5-S1: Mild annular bulging with slight effacement of the ventral thecal sac. Mild facet arthropathy. Spinal canal and foramen are patent. Mild central canal stenosis in the cervical spinal fire sprinkler fitter imaging at C5-C6 and C6-C7. Visualized pelvic bony structures: Normal. Paravertebral soft tissues: Normal. MR/MR lumbar spine wo con* [id number] IMPRESSION: 1. Mild lumbar curve. No acute compression. No high-grade central canal stenos is. Slight anterolisthesis L4 on L5. 2. Mild disc bulging L4-L5 with impingement on the traversing RIGHT greater th an LEFT L5 nerve roots. RIGHT foraminal protrusion with moderate RIGHT greater than LEFT foraminal narrowing at this level. Slight impingement on the exiting L4 nerve roots RIGHT greater than LEFT. 3. Moderate facet arthropathy L4-L5 with small facet effusions compatible with synovitis or degenerative change. 4. Small bilateral foraminal protrusion L3-L4 with mild bilateral foraminal na rrowing. 5. Small disc protrusions at T8-T9 and T10-T11 with mild central canal stenosi s.
== END 2022-04-09 13:00 | disposition home or self-care (01) ==
LOC: RAD 12:59
PROVIDERS: PCP Family Medicine; Visit Provider Pain Medicine Interventional Pain Medicine
DX: M54.16 Radiculopathy, lumbar region (principal); M79.606 Pain in leg, unspecified; M51.26 Other intervertebral disc displacement, lumbar region; M51.24 Other intervertebral disc displacement, thoracic region; M47.816 Spondylosis without myelopathy or radiculopathy, lumbar region
CPT/HCPCS: 72148

== ENCOUNTER → 2022-09-25 11:08 | Outpatient (BNVA) | payer OTHER, SELFPAY ==
[2021-10-04 11:55] VITALS: BP 109/59; BMI 37.9
== END ==
PROVIDERS: PCP Family Medicine; Visit Provider Nurse Practitioner Psychiatric/Mental Health
DX: F33.2 Major depressive disorder, recurrent severe without psychotic features (principal); F41.1 Generalized anxiety disorder
CPT/HCPCS: 80061; 83036

== ENCOUNTER 2024-05-25 10:16 | Emergency (ER) | payer SELFPAY ==
[2021-10-04 11:55] VITALS: BP 109/59; BMI 37.9
[2024-05-25 10:30] VITALS: BP 128/90; PULSE 66; RESP 16; TEMP 36.6; O2SAT 96; BMI 30.9
--- NOTE | 2024-05-25 10:37 | W.ED.NECK ---
HPI - Neck Pain/Injury General: Chief Complaint: Upper Respiratory Infection Stated Complaint: neck swelling and pain Time Seen by Provider: 05/25/24 10:19 Source: patient Mode of arrival: ambulatory Limitations: no limitations History of Present Illness: Patient today is a 48-year-old female who presents with complaints of neck pain and swollen lymph nodes . Patient has noticed the symptoms for about a month (ever since she was released from senior care) and notes that they have worsened within the past few days. Patient states that she feels like her neck is swollen when she wakes up but that this improves during the day. She reports that throughout the day she feels fatigued. Is concerned about staph in my lymph nodes . She admittedly has a difficult time finding the said lymph nodes that she feels like are swollen. Feels like they are located to her anterior neck/chest/axillary regions. MD complaint: neck pain Onset (ago): month(s) Place: home Severity: mild Quality: dull and aching Duration: constant Relieving factors: none Exacerbating factors: none Associated symptoms: Reports fevers/chills; Denies headache(s) Treatments prior to arrival: none Related Data Home Medications ?Medication ?Instructions ?Recorded ?Confirmed fluoxetine 20 mg capsule (Prozac) 20 mg PO DAILY 05/25/24 05/25/24 ibuprofen 200 mg tablet 200 mg PO Q6H PRN Pain 05/25/24 05/25/24 lisinopril 20 mg tablet 20 mg PO DAILY 05/25/24 05/25/24 pantoprazole 20 mg tablet,delayed 20 mg PO DAILY 05/25/24 05/25/24 release propranolol 20 mg tablet 20 mg PO BID 05/25/24 05/25/24 tizanidine 4 mg tablet 4 mg PO Q8H PRN Muscle Spasm 05/25/24 05/25/24 Allergies Allergy/AdvReac Type Severity Reaction Status Date / Time ketamine Allergy ADR-Anxiety Verified 05/25/24 10:33 prochlorperazine (From Allergy ADR-Agitate Verified 05/25/24 10:33 Compazine) d Review of Systems Const: Reports: fatigue; Denies: fever(s), chills, body aches or malaise Eyes: Denies: change in vision, blurry vision or photophobia Card: Denies: chest pain Resp: Denies: dyspnea GI: Denies: abdominal pain Musc: Reports: neck pain; Denies: back pain, extremity pain, extremity swelling, joint pain, joint swelling or joint redness Skin/Breast: Denies: rash Neuro: Denies: headache(s), numbness in extremities, weakness in extremities or sensory changes PFS ED PFSH: Medical History Nicotine dependence, unspecified, uncomplicated Cannabis dependence, uncomplicated Methamphetamine use disorder, severe Major depressive disorder, recurrent, in partial remission Methamphetamine use disorder, mild, in early remission, abuse Following information retrieved/edited from Behavior Assessment Report completed on 06/13/21: she reports a pattern of methamphetamine use leading to clinically significant impairment or distress, as manifested by recurrent stimulant use resulting in a failure to fulfill major role obligations at work, school, or home; continued stimulant use despite having persistent or recurrent social or interpersonal problems caused or exacerbated by the effects of the stimulant; stimulant use is continued despite knowledge of having a persistent or recurrent physical or psychological problem that is likely to have been caused or exacerbated by the stimulant. Hx MRSA infection Hx of primary hypertension History of anxiety History of depression Hx of heat stroke Migraine Sleep apnea Gastroesophageal reflux History of kidney stones History of vaginal delivery History of fracture Bipolar disorder PTSD (post-traumatic stress disorder) History of methamphetamine abuse Substance abuse Olecranon bursitis, left elbow Surgical History Hx of dilation and curettage Family History Father CAD (coronary artery disease) Other Cancer Dementia Hypertension Major depressive disorder, recurrent, in partial remission Social History Smoking and tobacco/nicotine status: current every day tobacco/nicotine user cigarettes Packs smoked per day: 0.5 Years cigarettes smoked: 30 Quit status (tobacco/nicotine): not considering quitting Second hand smoke exposure: No Alcohol intake: never Substance/Drug Use: former Date of last use: 2 months from pot and 6 months from meth Adopted: No Caregiver/support person: No Lives independently: Yes Household members: significant other and children Housing: Manufactured/Mobile home Marital status: Number of children: 2 Number of grandchildren: 0 Highest education level completed: GED or Equivalent service: No Current occupational status: disabled Current occupation: trying to get disability Pets and animals: Yes Pets & animals: cat(s), dog(s) and farm animals Farm Animals: other Leisure activites: music and other Leisure activities details: watch TV Sexually active: No Do you think of yourself as: Straight/Heterosexual Current gender identity: Female Rach/Advent: Alevism Special rach needs: No Agree to transfusion: Yes Female Reproductive History: Para: 2 Spontaneous abortions: Yes Physical Exam Const: COMMON NORMALS: no acute distress, patient oriented x3, no limitations, healthy appearing, alert and well nourished HENMT: FACE & SINUS: normal facial exam, sinuses nontender and face symmetric; no edema MOUTH: Normal oral and palatal mucosa present and lip normal THROAT: posterior oropharynx normal and tonsils normal Eye: GENERAL EYE: appearance normal, both eyes and all related structures Neck/C-Spine: COMMON NORMALS: full ROM, no lymphadenopathy, supple, no meningeal signs, no JVD, Thyroid normal and No carotid bruits GENERAL: Yes normal visual inspection THYROID: Thyroid normal CERVICAL SPINE: Yes cervical ROM normal Lymph: LYMPHATIC: no lymphadenopathy noted Chest: COMMONS NORMALS: normal inspection of the chest and normal palpation of entire chest wall Resp: COMMON NORMALS: normal respiratory effort and clear to auscultation bilaterally AUSCULTATION: clear to auscultation bilaterally Cardio: COMMON NORMALS: no JVD, regular rate and regular rhythm RATE: regular rate RHYTHM: regular rhythm Extremity: GENERAL: Yes normal exam except as noted Neuro: COMMON NORMALS: patient oriented x3 SENSORIUM/ORIENTATION: Yes alert MENINGEAL SIGNS: Yes no meningeal signs Course Vital Signs: Vital signs: Vital Signs Temperature 97.8 F 05/25/24 10:30 Pulse Rate 66 05/25/24 10:30 Respiratory Rate 16 05/25/24 10:30 Blood Pressure 128/90 05/25/24 10:30 Pulse Oximetry 96 05/25/24 10:30 Oxygen Delivery Me thod Room Air 05/25/24 10:30 MDM - Neck Pain/Injury Medical Decision Making Patient is a 48-year-old female here concerned about possible swollen lymph nodes involving her anterior neck, chest, and extremities 1 month. Clinically I do not appreciate any lymphadenopathy. Her thyroid appears normal. Blood work including CBC, CMP, TSH is nonactionable. Patient states she was actually just seen for the same complaint Everett Mascorro last week. She states they are supposed to be referring her for an appointment with Dr. Sam for further evaluation. Recommend she contact them to see where they are at and scheduling this appointment. Medical Records I reviewed the patient's medical records. Lab Data I reviewed the patient's lab results. 05/25/24 10:59 05/25/24 10:59 Laboratory Results WBC 4.92 10^3/uL (3.29-11.43) 05/25/24 10:59 RBC 3.50 10^6/uL (3.85-5.65) L 05/25/24 10:59 Hgb 10.60 g/dL (11.27-16.99) L 05/25/24 10:59 Hct 31.9 % (36-47) L 05/25/24 10:59 MCV 91.1 fl (85-98) 05/25/24 10:59 MCH 30.3 pg (27-33) 05/25/24 10:59 MCHC 33.2 g/dL (30-55) 05/25/24 10:59 RDW 13.9 % (12.1-15.1) 05/25/24 10:59 Plt Count 291 10^3/cmm (157-399) 05/25/24 10:59 MPV 9.2 fL (7.4-10.4) 05/25/24 10:59 Neut % (Auto) 52.0 % 05/25/24 10:59 Lymph % (Auto) 35.0 % 05/25/24 10:59 [place] % (Auto) 7.3 % 05/25/24 10:59 Eos % (Auto) 4.7 % 05/25/24 10:59 Baso % (Auto) 0.8 % 05/25/24 10:59 Neut # (Auto) 2.56 10^3/uL (1.8-7.7) 05/25/24 10:59 Lymph # (Auto) 1.7 10^3/uL (0.8-4.8) 05/25/24 10:59 [place] # (Auto) 0.4 10^3/uL (0.2-0.9) 05/25/24 10:59 Eos # (Auto) 0.2 10^3/uL (0.0-0.8) 05/25/24 10:59 Baso # (Auto) 0.0 10^3/uL (0.0-0.1) 05/25/24 10:59 Nucleated RBC % (auto) 0 % 05/25/24 10:59 Nucleated RBCs # 0.0 /100WBC 05/25/24 10:59 Sodium 135 mmol/L (136-145) L 05/25/24 10:59 Potassium 4.3 mmol/L (3.5-5.1) 05/25/24 10:59 Chloride 102 mmol/L (98-107) 05/25/24 10:59 Carbon Dioxide 24 mmol/L (22-29) 05/25/24 10:59 Anion Gap 13.3 (5-19) 05/25/24 10:59 BUN 17 mg/dL (6-20) 05/25/24 10:59 Creatinine 0.6 mg/dL (0.5-0.9) 05/25/24 10:59 GFR Calculation 107.2 mL/min (90-130) 05/25/24 10:59 Glucose 110 mg/dL (65-115) 05/25/24 10:59 Calculated Osmolality 282 mOsm/kg (285-295) L 05/25/24 10:59 Calcium 8.8 mg/dL (8.5-10.5) 05/25/24 10:59 Total Bilirubin 0.3 mg/dL (0.15-1.2) 05/25/24 10:59 AST 14 U/L (0-32) 05/25/24 10:59 ALT 8 U/L (0-33) 05/25/24 10:59 Alkaline Phosphatase 66 U/L (35-105) 05/25/24 10:59 Total Protein 6.5 g/dL (6.6-8.7) L 05/25/24 10:59 Albumin 3.8 g/dL (3.5-5.2) 05/25/24 10:59 Globulin 2.7 g/dL (1.3-4.6) 05/25/24 10:59 TSH 2.69 uIU/mL (0.27-4.20) 05/25/24 10:59 No radiology studies performed this visit Discharge Plan Discharge Patient Disposition: Home Clinical Impression: Person with feared complaint, no diagnosis made Condition: Stable Prescriptions: No Action tizanidine 4 mg Tablet 4 mg PO Q8H PRN (Reason: Muscle Spasm) lisinopril 20 mg Tablet 20 mg PO DAILY pantoprazole 20 mg Tablet,Delayed Release (Dr/Ec) 20 mg PO DAILY ibuprofen 200 mg Tablet 200 mg PO Q6H PRN (Reason: Pain) propranolol 20 mg Tablet 20 mg PO BID fluoxetine [Prozac] 20 mg Capsule 20 mg PO DAILY Discharge Orders: Discharge ED (Routine); Ordered 05/25/24 Ordered By: Maryann Chavez Referrals: Bobby Sam MD [Primary Care Provider] - Activity Restrictions/Additional Instructions: As we discussed, your blood work here is unremarkable. We discussed continuing to follow-up with Everett Mascorro/primary care/Dr. Sam for further evaluation of symptoms. Print Language: Icelandic Coding Level of Care Code ED Demand Planner for [facility] Re[facility]
--- NOTE | 2024-05-25 10:46 | PC.PHAR ---
patient gave her medications and dosages to me verbally, theres no external records if it to compare
[2024-05-25 11:04] LABS: Basophils % 0.8 %; Eosinophils # 0.2 10^3/uL (0.0-0.8); Eosinophils % 4.7 %; Hematocrit 31.9 % (36-47); Lymphocytes # 1.7 10^3/uL (0.8-4.8); Mean Corpuscular HGB Conc 33.2 g/dL (30-55); Mean Corpuscular Hemoglobin 30.3 pg (27-33); Mean Corpuscular Volume 91.1 fl (85-98); Mean Platelet Volume 9.2 fL (7.4-10.4); Monocytes # 0.4 10^3/uL (0.2-0.9); Monocytes % 7.3 %; Neutrophils # 2.56 10^3/uL (1.8-7.7); Nucleated Red Blood Cells % 0 %; Platelet Count 291 10^3/cmm (157-399); Red Cell Distribution Width 13.9 % (12.1-15.1); White Blood Count 4.92 10^3/uL (3.29-11.43)
[2024-05-25 11:32] LABS: Alanine Aminotransferase 8 U/L (0-33); Albumin Level 3.8 g/dL (3.5-5.2); Alkaline Phosphatase 66 U/L (35-105); Anion Gap 13.3 (5-19); Aspartate Amino Transferase 14 U/L (0-32); Blood Urea Nitrogen 17 mg/dL (6-20); Calcium 8.8 mg/dL (8.5-10.5); Carbon Dioxide 24 mmol/L (22-29); Chloride 102 mmol/L (98-107); Globulin 2.7 g/dL (1.3-4.6); Glomerular Filtration Rate 107.2 mL/min (90-130); Glucose 110 mg/dL (65-115); Osmolality Calculated 282 mOsm/kg (285-295); Potassium 4.3 mmol/L (3.5-5.1); Sodium 135 mmol/L (136-145); Thyroid Stimulating Hormone 2.69 uIU/mL (0.27-4.20); Total Bilirubin 0.3 mg/dL (0.15-1.2); Total Protein 6.5 g/dL (6.6-8.7)
== END 2024-05-25 11:54 | disposition home or self-care (01) ==
PROVIDERS: Emergency Provider Physician Assistant; PCP Family Medicine
DX: Z03.89 Encounter for observation for other suspected diseases and conditions ruled out (principal); F17.210 Nicotine dependence, cigarettes, uncomplicated
CPT/HCPCS: 36415; 80053; 84443; 85025; 99283

== ENCOUNTER 2024-07-13 06:35 | Emergency (ER) | payer MEDICAID, SELFPAY ==
[2021-10-04 11:55] VITALS: BP 109/59; BMI 37.9
[2024-07-13 06:46] VITALS: BP 117/80; PULSE 74; RESP 16; TEMP 36.4; O2SAT 98; BMI 35.2
[2024-07-13] MEDS: orphenadrine 30 mg/mL Inj 2 mL 60 MG IM (07:17)
[2024-07-13] MEDS: ketorolac 30 mg/mL INJ IVP (07:18)
[2024-07-13] MEDS: methylPREDNISolone sod succ 125 mg/2 mL INJ IVP (07:18)
[2024-07-13 07:22] VITALS: BP 122/78; PULSE 61; O2SAT 100
[2024-07-13 07:29] LABS: Basophils % 0.5 %; Eosinophils # 0.3 10^3/uL (0.0-0.8); Hematocrit 33.9 % (36-47); Lymphocytes # 2.1 10^3/uL (0.8-4.8); Lymphocytes % 33.4 %; Mean Corpuscular HGB Conc 32.4 g/dL (30-55); Mean Corpuscular Hemoglobin 29.6 pg (27-33); Mean Corpuscular Volume 91.1 fl (85-98); Mean Platelet Volume 9.8 fL (7.4-10.4); Monocytes # 0.6 10^3/uL (0.2-0.9); Monocytes % 10.2 %; Neutrophils # 3.15 10^3/uL (1.8-7.7); Neutrophils % 50.7 %; Nucleated Red Blood Cells % 0 %; Platelet Count 304 10^3/cmm (157-399); Red Blood Count 3.72 10^6/uL (3.85-5.65)
--- NOTE | 2024-07-13 07:33 | W.ED.ABDPA2 ---
HPI - Abdominal Pain General: Chief Complaint: Abdominal Pain Stated Complaint: Left side back pain Time Seen by Provider: 07/13/24 06:42 History of Present Illness: 48-year-old female presents emergency room complaint of left flank pain that she has had for the last week. She said intermittent nausea associated with it is worse when she moves or repositions she denies vomiting or diarrhea no dysuria urgency frequency or hematuria. No fever sweats or chills denies chest pain or shortness of breath. Associated Symptoms: Denies chills, dysuria and fever(s) Related Data Home Medications ?Medication ?Instructions ?Recorded ?Confirmed fluoxetine 20 mg capsule (Prozac) 20 mg PO DAILY 05/25/24 05/25/24 ibuprofen 200 mg tablet 200 mg PO Q6H PRN Pain 05/25/24 05/25/24 lisinopril 20 mg tablet 20 mg PO DAILY 05/25/24 05/25/24 pantoprazole 20 mg tablet,delayed 20 mg PO DAILY 05/25/24 05/25/24 release propranolol 20 mg tablet 20 mg PO BID 05/25/24 05/25/24 tizanidine 4 mg tablet 4 mg PO Q8H PRN Muscle Spasm 05/25/24 05/25/24 Previous Rx's ?Medication ?Instructions ?Recorded diclofenac sodium 75 mg 75 mg PO Q12H PRN pain #20 tabs 07/13/24 tablet,delayed release prednisone 20 mg tablet 20 mg PO TID #15 tabs 07/13/24 Allergies Allergy/AdvReac Type Severity Reaction Status Date / Time ketamine Allergy ADR-Anxiety Verified 05/25/24 10:33 prochlorperazine (From Allergy ADR-Agitate Verified 05/25/24 10:33 Compazine) d Review of Systems Const: Denies: fever(s) or chills Card: Denies: chest pain Resp: Denies: dyspnea GI: Denies: abdominal pain : Reports: flank pain (right); Denies: dysuria, urinary frequency or urinary urgency Musc: Reports: back pain; Denies: neck pain Skin/Breast: Denies: rash PFSH ED PFSH: Medical History Nicotine dependence, unspecified, uncomplicated Cannabis dependence, uncomplicated Methamphetamine use disorder, severe Major depressive disorder, recurrent, in partial remission Methamphetamine use disorder, mild, in early remission, abuse Following information retrieved/edited from Behavior Assessment Report completed on 06/13/21: she reports a pattern of methamphetamine use leading to clinically significant impairment or distress, as manifested by recurrent stimulant use resulting in a failure to fulfill major role obligations at work, school, or home; continued stimulant use despite having persistent or recurrent social or interpersonal problems caused or exacerbated by the effects of the stimulant; stimulant use is continued despite knowledge of having a persistent or recurrent physical or psychological problem that is likely to have been caused or exacerbated by the stimulant. Hx MRSA infection Hx of primary hypertension History of anxiety History of depression Hx of heat stroke Migraine Sleep apnea Gastroesophageal reflux History of kidney stones History of vaginal delivery History of fracture Bipolar disorder PTSD (post-traumatic stress disorder) History of methamphetamine abuse Substance abuse Olecranon bursitis, left elbow Surgical History Hx of dilation and curettage Family History Father CAD (coronary artery disease) Other Cancer Dementia Hypertension Major depressive disorder, recurrent, in partial remission Social History Smoking and tobacco/nicotine status: current every day tobacco/nicotine user cigarettes Packs smoked per day: 0.5 Years cigarettes smoked: 30 Quit status (tobacco/nicotine): not considering quitting Second hand smoke exposure: No Alcohol intake: never Substance/Drug Use: former Date of last use: 2 months from pot and 6 months from meth Adopted: No Caregiver/support person: No Lives independently: Yes Household members: significant other and children Housing: Manufactured/Mobile home Marital status: Number of children: 2 Number of grandchildren: 0 Highest education level completed: GED or Equivalent service: No Current occupational status: disabled Current occupation: trying to get disability Pets and animals: Yes Pets & animals: cat(s), dog(s) and farm animals Farm Animals: other Leisure activites: music and other Leisure activities details: watch TV Sexually active: No Do you think of yourself as: Straight/Heterosexual Current gender identity: Female Rach/Druze: Sikh Special rach needs: No Agree to transfusion: Yes Female Reproductive History: Para: 2 Spontaneous abortions: Yes Physical Exam Const: GENERAL APPEARANCE: cooperative ORIENTATION/CONSCIOUSNESS: Yes awake, Yes oriented to person, Yes oriented to place and Yes oriented to time HENMT: COMMON NORMALS: normocephalic, atraumatic and hearing grossly normal bilaterally HEAD & SCALP: normocephalic and atraumatic Resp: COMMON NORMALS: normal respiratory effort, No retractions, No use of accessory muscles and clear to auscultation bilaterally AUSCULTATION: clear to auscultation bilaterally Cardio: COMMON NORMALS: regular rate, regular rhythm and No murmurs present (Cardio) RATE: regular rate RHYTHM: regular rhythm GI: COMMON NORMALS: Soft to palpation and No hepatosplenomegaly present AUSCULTATION: Yes normoactive bowel sounds PALPATION: Yes Soft to palpation, No Tenderness to palpation present (GI), No Guarding due to palpation present (GI) and Yes No hepatosplenomegaly present Extremity: COMMON NORMALS: normal to inspection, capillary refill normal, no clubbing, cyanosis or edema, no calf tenderness and no pedal edema Neuro: SENSORIUM/ORIENTATION: Yes oriented to person, Yes oriented to place and Yes oriented to time Skin: COMMON NORMALS: no rashes or lesions noted GENERAL SKIN EXAM: no rashes or lesions noted Course Vital Signs: Vital signs: Vital Signs Temperature 97.5 F L 07/13/24 06:46 Pulse Rate 82 07/13/24 10:09 Respiratory Rate 18 07/13/24 10:09 Blood Pressure 122/100 07/13/24 10:09 Pulse Oximetry 98 07/13/24 10:09 Oxygen Delivery Me thod Room Air 07/13/24 08:00 MDM - Abdominal Pain Medical Decision Making Left-sided back pain. It worsens with movement and repositioning. White count normal CT unremarkable urine negative. Will discharge patient home treat for musculoskeletal back pain. Prednisone taper tizanidine and diclofenac recheck if not improving Medical Records I reviewed the patient's medical records. Lab Data I reviewed the patient's lab results. 07/13/24 07:16 07/13/24 07:16 Labs/Radiology: Radiology Impressions Abdomen/Pelvis CT 07/13/24 08:03 IMPRESSION: Some images degraded by motion 1. No hydronephrosis in either kidney. No obstructing renal or ureteral calculi visualized. A few pelvic phleboliths in the pelvis that appear separate from the ureter. 2. Prior cholecystectomy and hysterectomy. 3. Normal appendix. 4. Small fat-containing umbilical hernia. 5. Progressed grade 1 anterolisthesis L4 on L5. Laboratory Results WBC 6.20 10^3/uL (3.29-11.43) 07/13/24 07:16 RBC 3.72 10^6/uL (3.85-5.65) L 07/13/24 07:16 Hgb 11.00 g/dL (11.27-16.99) L 07/13/24 07:16 Hct 33.9 % (36-47) L 07/13/24 07:16 MCV 91.1 fl (85-98) 07/13/24 07:16 MCH 29.6 pg (27-33) 07/13/24 07:16 MCHC 32.4 g/dL (30-55) 07/13/24 07:16 RDW 14.0 % (12.1-15.1) 07/13/24 07:16 Plt Count 304 10^3/cmm (157-399) 07/13/24 07:16 MPV 9.8 fL (7.4-10.4) 07/13/24 07:16 Neut % (Auto) 50.7 % 07/13/24 07:16 Lymph % (Auto) 33.4 % 07/13/24 07:16 [place] % (Auto) 10.2 % 07/13/24 07:16 Eos % (Auto) 5.0 % 07/13/24 07:16 Baso % (Auto) 0.5 % 07/13/24 07:16 Neut # (Auto) 3.15 10^3/uL (1.8-7.7) 07/13/24 07:16 Lymph # (Auto) 2.1 10^3/uL (0.8-4.8) 07/13/24 07:16 [place] # (Auto) 0.6 10^3/uL (0.2-0.9) 07/13/24 07:16 Eos # (Auto) 0.3 10^3/uL (0.0-0.8) 07/13/24 07:16 Baso # (Auto) 0.0 10^3/uL (0.0-0.1) 07/13/24 07:16 Nucleated RBC % (auto) 0 % 07/13/24 07:16 Nucleated RBCs # 0.0 /100WBC 07/13/24 07:16 Sodium 139 mmol/L (136-145) 07/13/24 07:16 Potassium 4.1 mmol/L (3.5-5.1) 07/13/24 07:16 Chloride 106 mmol/L (98-107) 07/13/24 07:16 Carbon Dioxide 23 mmol/L (22-29) 07/13/24 07:16 Anion Gap 14.1 (5-19) 07/13/24 07:16 BUN 16 mg/dL (6-20) 07/13/24 07:16 Creatinine 0.7 mg/dL (0.5-0.9) 07/13/24 07:16 GFR Calculation 89.7 mL/min (90-130) L 07/13/24 07:16 Glucose 106 mg/dL (65-115) 07/13/24 07:16 Calculated Osmolality 290 mOsm/kg (285-295) 07/13/24 07:16 Calcium 8.9 mg/dL (8.5-10.5) 07/13/24 07:16 Total Bilirubin 0.4 mg/dL (0.15-1.2) 07/13/24 07:16 AST 14 U/L (0-32) 07/13/24 07:16 ALT 8 U/L (0-33) 07/13/24 07:16 Alkaline Phosphatase 72 U/L (35-105) 07/13/24 07:16 Total Protein 6.6 g/dL (6.6-8.7) 07/13/24 07:16 Albumin 3.7 g/dL (3.5-5.2) 07/13/24 07:16 Globulin 2.9 g/dL (1.3-4.6) 07/13/24 07:16 Lipase 30 U/L (13-60) 07/13/24 07:16 Urine Color Yellow (Yellow) 07/13/24 07:30 Urine Appearance Clear (CLEAR) 07/13/24 07:30 Urine pH 5.5 (5-7) 07/13/24 07:30 Ur Specific [place] 1.012 (1.005-1.030) 07/13/24 07:30 Urine Protein Negative (Negative) 07/13/24 07:30 Urine Glucose (UA) Negative (Normal) 07/13/24 07:30 Urine Ketones Negative (Negative) 07/13/24 07:30 Urine Blood Negative (Negative) 07/13/24 07:30 Urine Nitrate Negative (Negative) 07/13/24 07:30 Urine Bilirubin Negative (Negative) 07/13/24 07:30 Urine Urobilinogen 0.2 mg/dL (Negative) 07/13/24 07:30 Ur Leukocyte Esterase Negative (Negative) 07/13/24 07:30 Urine RBC 0-2 /hpf (0-2) 07/13/24 07:30 Urine WBC 0-5 /hpf (0-5) 07/13/24 07:30 Ur Squamous Epith Cells 0-5 /hpf (0-5) 07/13/24 07:30 Amorphous Sediment Not Reportable 07/13/24 07:30 Urine Bacteria None seen /hpf (NONE) 07/13/24 07:30 Hyaline Casts 0-4 /lpf H 07/13/24 07:30 All radiology interpretation(s) finalized by discharge Discharge Plan Discharge Patient Disposition: Home Clinical Impression: Back pain Condition: Stable Prescriptions: New prednisone 20 mg tablet 20 mg PO TID Qty: 15 0RF Rx Instructions: 1 p.o. 3 times daily x3 days, 1 p.o. twice daily x2 days, 1 p.o. daily x2 days diclofenac sodium 75 mg tablet,delayed release (DR/EC) 75 mg PO Q12H PRN (Reason: pain) Qty: 20 0RF No Action tizanidine 4 mg Tablet 4 mg PO Q8H PRN (Reason: Muscle Spasm) lisinopril 20 mg Tablet 20 mg PO DAILY pantoprazole 20 mg Tablet,Delayed Release (Dr/Ec) 20 mg PO DAILY ibuprofen 200 mg Tablet 200 mg PO Q6H PRN (Reason: Pain) propranolol 20 mg Tablet 20 mg PO BID fluoxetine [Prozac] 20 mg Capsule 20 mg PO DAILY Discharge Orders: Discharge ED (Routine); Ordered 07/13/24 Ordered By: Dillon Crenshaw Referrals: Bobby Sam MD [Primary Care Provider, Family Practice] Discharge Diet: Usual diet Discharge Activity: Resume usual activity Patient Instructions: Opioid Safety, Pain Management Activity Restrictions/Additional Instructions: Thank you for choosing [facility] for your healthcare needs today. It is very important that you follow up as instructed or that you return to the Emergency Department should you have concerns or if your condition changes or worsens in any way. You were seen in the emergency room with complaints of back pain. Laboratory tests and imaging did not show any acute findings suspect your back pain is also musculoskeletal continues tizanidine your previously been prescribed you are given prescriptions for diclofenac and prednisone taper. Follow-up with your primary care doctor Print Language: Filipino Coding Level of Care Code ED Medical Accounting Clerk for Josephine Rehman
[2024-07-13 07:41] LABS: Alanine Aminotransferase 8 U/L (0-33); Albumin Level 3.7 g/dL (3.5-5.2); Alkaline Phosphatase 72 U/L (35-105); Anion Gap 14.1 (5-19); Aspartate Amino Transferase 14 U/L (0-32); Blood Urea Nitrogen 16 mg/dL (6-20); Calcium 8.9 mg/dL (8.5-10.5); Carbon Dioxide 23 mmol/L (22-29); Chloride 106 mmol/L (98-107); Creatinine Clr Calc Pharmacy 109.8143; Globulin 2.9 g/dL (1.3-4.6); Glomerular Filtration Rate 89.7 mL/min (90-130); Glucose 106 mg/dL (65-115); Lipase 30 U/L (13-60); Osmolality Calculated 290 mOsm/kg (285-295); Potassium 4.1 mmol/L (3.5-5.1); Sodium 139 mmol/L (136-145); Total Bilirubin 0.4 mg/dL (0.15-1.2); Total Protein 6.6 g/dL (6.6-8.7)
[2024-07-13 08:00] VITALS: BP 116/90; PULSE 63; O2SAT 97
--- NOTE | 2024-07-13 08:03 | CT_ITS ---
WS: [id number] CT ABDOMEN PELVIS TECHNIQUE: Noncontrast CT of the abdomen and pelvis with coronal and sagittal reformatted images. CLINICAL INFORMATION: flank pain COMPARISON: CT 2012 DLP: 927.[address] scans at [facility] use at least one of these dose optimization techniques: automated exposure control; mA and/or kV adjustment per patient size (includes targeted exams where dose is matched to clinical indication); or iterative reconstruction. FINDINGS: Prior hysterectomy and cholecystectomy. Tiny LEFT adrenal nodule likely adenoma. No hydronephrosis in the LEFT kidney. Phleboliths along the distal LEFT ureter but no definite obstructing LEFT renal or ureteral calculi. No hydronephrosis. Tiny noncalcified nodule in the RIGHT upper lobe. Calcified granuloma RIGHT lower lobe. Noncontrast liver and spleen are normal. Small esophageal hernia. Normal noncontrast pancreas. Normal caliber abdominal aorta. Mild aortic calcification. Normal sigmoid colon. Normal appendix in the RIGHT lower quad rant. Small fat-containing umbilical hernia. No free fluid in the abdomen or pelvis. Grade 1 anterolisthesis L4 on L5. This is progressed since 2011. CT/CT kidney stone 92042 IMPRESSION: Some images degraded by motion 1. No hydronephrosis in either kidney. No obstructing renal or ureteral calcul i visualized. A few pelvic phleboliths in the pelvis that appear separate from the ureter. 2. Prior cholecystectomy and hysterectomy. 3. Normal appendix. 4. Small fat-containing umbilical hernia. 5. Progressed grade 1 anterolisthesis L4 on L5.
[2024-07-13 09:00] VITALS: BP 104/70; PULSE 56; O2SAT 99
[2024-07-13 09:02] LABS: Bilirubin Urine Negative (Negative); Blood Urine Negative (Negative); Glucose Urine UA Negative (Normal); Ketones Urine Negative (Negative); Leukocyte Esterase Urine Negative (Negative); Nitrate Urine Negative (Negative); Protein Urine Negative (Negative); Specific Gravity, Urine 1.012 (1.005-1.030); Urine Appearance Clear (CLEAR); Urine Color Yellow (Yellow); Urobilinogen Urine 0.2 mg/dL (Negative); pH Urine 5.5 (5-7)
[2024-07-13 09:08] LABS: Add Urine Microscopic? YES; Bacteria Urine None Seen /hpf; Hyaline Casts Urine 0-4 /lpf; RBC Urine 0-2 /hpf (0-2); Squamous Epithelial Cell Urine 0-5 /hpf (0-5); WBC Urine 0-5 /hpf (0-5)
[2024-07-13 10:09] VITALS: BP 122/100; PULSE 82; RESP 18; O2SAT 98
== END 2024-07-13 10:10 | disposition home or self-care (01) ==
PROVIDERS: Emergency Provider Family Medicine; PCP Family Medicine
DX: M54.9 Dorsalgia, unspecified (principal); F17.210 Nicotine dependence, cigarettes, uncomplicated
CPT/HCPCS: 74176; 80053; 81001; 83690; 85025; 96372; 96374; 96375; 99285; J1885; J2360; J2919

== ENCOUNTER 2024-08-11 06:05 | Outpatient (CLI) | payer MEDICAID, SELFPAY ==
[2021-10-04 11:55] VITALS: BP 109/59; BMI 37.9
--- NOTE | 2024-08-11 06:12 | USCV_ITS ---
LiamMarianne nieves Age: 48 Gender: F : 1975 Exam Date: 08/11/2024 06:21 Ordering Phys: ZamoraMay NECK SKEWER Technologist: Exam Location[place] [facility] [place] Indication: pedal edma BP: 120 / 70 HR: 60 Rhythm: Sinus Technical Quality: Adequate MEASUREMENTS (Male / Female) Normal Values 2D ECHO LV Diastolic Diameter PLAX 4.9 cm 4.2 - 5.9 / 3.9 - 5.3 cm IVS Diastolic Thickness 1.1 cm 0.6 - 1.0 / 0.6 - 0.9 cm IVS Systolic Thickness 1.9 cm LVPW Diastolic Thickness 1.3 cm 0.6 - 1.0 / 0.6 - 0.9 cm LVPW Systolic Thickness 1.7 cm LVOT Diameter 2.1 cm LV Ejection Fraction 2D Teich 57.7 % LV Ejection Fraction MOD 4C 52.8 % LV Ejection Fraction MOD 2C 61.3 % LV Ejection Fraction 2C AL 61.7 % LA Diameter 3.3 cm RA Systolic Volume 4C AL 32.9 ml RA Systolic Volume 4C MOD 31.4 ml LA Sys Volume AL 56.1 cm cubed LA Sys Volume Index AL 25.9 cm cubed/m squared Aorta at Sinotubular Diameter 2.9 cm IVC Diameter 2.5 cm M-MODE LA Ao Ratio MM 1.1 AV Cusp Separation MM 2.5 cm DOPPLER AV Peak Velocity 128.0 cm/s LVOT Peak Velocity 100.0 cm/s AV Area Cont Eq vti 3.5 cm squared AV Area Cont Eq pk 2.6 cm squared MV Peak Velocity 114.0 cm/s MV Area PHT 3.9 cm squared Mitral E to A Ratio 1.4 TV Peak E Velocity 88.0 cm/s PV Peak Velocity 85.0 cm/s FINDINGS Left Ventricle Normal LV size with a slightly diminished ejection fraction of 50%, (visual). Mild diffuse hypokinesis of the inferolateral and lateral wall segments. Right Ventricle The right ventricle is normal in size and function. Right Atrium The right atrium is normal in size. Left Atrium Mildly increased left atrial size. Mitral Valve Mild mitral valve regurgitation. Aortic Valve No gross abnormalities noted Tricuspid Valve No gross abnormalities noted Pulmonic Valve No gross abnormalities noted Pericardium No pericardial effusion. Aorta Normal aortic annulus size. IVC Normal inferior vena cava. CONCLUSIONS Normal LV size with a slightly diminished ejection fraction of 50%, (visual). Mild diffuse hypokinesis of the inferolateral and lateral wall segments. Mildly increased left atrial size. Mild mitral valve regurgitation. There is no pericardial effusion. There are no intracardiac masses. No similar previous studies are available for comparison Dr Maldonado Rodriguez MD [facility] (Electronically Signed) Final Date: 12 August 2024 08:20 S
== END 2024-08-11 06:06 | disposition home or self-care (01) ==
PROVIDERS: PCP Family Medicine
DX: R22.43 Localized swelling, mass and lump, lower limb, bilateral (principal); R06.09 Other forms of dyspnea; R07.9 Chest pain, unspecified; I51.7 Cardiomegaly; I34.0 Nonrheumatic mitral (valve) insufficiency; R94.39 Abnormal result of other cardiovascular function study
CPT/HCPCS: 93306

== ENCOUNTER 2024-12-09 13:02 | Inpatient (IN) | payer MEDICAID, SELFPAY ==
[2021-10-04 11:55] VITALS: BP 109/59; BMI 37.9
[2024-12-09] VITALS (63 sets, daily range): BP systolic 112–125; BP diastolic 75–92; PULSE 78–131; RESP 16–34; TEMP 37.2; O2SAT 95–96; BMI 32.2; BMI 30.2
--- NOTE | 2024-12-09 13:09 | ECG_ITS ---
[facility]: 2024-12[facility]09 Pat Name: Marianne Wheeler Department: Room: Gender: Female Manager Floor: : 1975 Requested By: Dillon Montano Order Number: [id number] Alvina MD: Flako Alexander M.D. Measurements Intervals [place] Rate: 118 P: 82 CO: 141 QRS: 57 QRSD: 94 T: 35 QT: 340 QTc: 478 Interpretive Statements SINUS TACHYCARDIA ST DEVIATION AND MODERATE T-WAVE ABNORMALITY, CONSIDER LATERAL ISCHEMIA [-0.1+ mV T-WAVE IN I/aVL/V5/V6] ST DEVIATION AND MODERATE T-WAVE ABNORMALITY, CONSIDER INFERIOR ISCHEMIA [-0.1+ mV T-WAVE IN II/aVF] No previous ECG available for comparison Electronically Signed On 12-09-2024 16:45:15 CDT by Flako Alexander M.D. [email or web address]
--- OUTSIDE RECORDS SUMMARY | 2024-12-09 13:23 | XMS_ITS | Data Portability ---
Author Organization [facility], [facility], [facility] Address [address] [place] [address] Care Team Providers Care Bilingual Teacher Aide Name Role Phone NERY SAM Primary Care Provider Unavailabl e Assessment No assessment recorded. Plan of Treatment Reminders Order Date Submit Date Provider Last Modified By Organization Details Last Modified Time Details Appointments None recorded. Lab None recorded. Referral ENT surgery referral 2024 025 [email or web address] 2 Zane Toure MD, [address] , [place], [address], 11:29:53 Procedures None recorded. Surgeries None recorded. Imaging US, thyroid - [id number] 2024 025 [facility], [address] [place], [address], 5 17:13:29 Medication Orders Bactrim DS 800 mg-160 mg tablet 2024 025 [facility], [address], [place], [address], 5 05:01:55 polymyxin B sulfate 10,000 unit-trimet hoprim 1 mg/mL eye drops 2024 025 [facility], [address], [place], [address], 5 08:47:40 prednisone 20 mg tablet [address] [facility], [address], [place], [address], 5 08:34:02 tizanidine 4 mg tablet 2024 025 [facility], [address], [place], [address], 5 09:57:37 pantoprazol e 40 mg tablet,zoila yed release [address] [facility], [address], [place], [address], 5 08:33:58 Patient TargetsNo targets recorded. Patient Instructions Encounter Date Encounter Id Patient Instructions Last Modified By Organization Details Last Modified Time 06/15/2022 [id number] Preventing Depression From Coming Back: Care Instructions [email or web address] Not available 06/15/2022 15:19:18 anxiety disorder : care instructions [email or web address] Not available 06/15/2022 15:19:18 gastroesophageal reflux disease (GERD): care instructions Not available 06/15/2022 15:19:18 high blood press ure: care instructions [email or web address] Not available 06/15/2022 15:22:40 learning about h igh blood pressure [email or web address] Not available 06/15/2022 15:22:40 Reason for Referral ENT Surgery Referral for Chr onic hoarseness Referring Physician: Nery Sam, Family Medicine, Encounter Date: 06/02/2024 Results Created Date Observation Date Name Description Value Unit Range Abnormal Flag Note LastModifiedBy Organization Detail LastModifiedTime 06/16/1906/15/2024 US, thyro id No observ ation record ed. [email or web address] [facility] [address] [place], [address], 06/16/2024 12:23:46 Result Notes None recorded. 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 5 09:48:55 Generali zed anxiety disorder 80776011 Active [address], [address] , [facility] 5 09:48:55 Major depressi ve disorder 711394915 Active [address], [address] , [facility] 5 09:48:55 Gastroes ophageal reflux disease 042673583 Active [address], [address] , [facility] 5 09:48:55 Benign essentia l hyperten jose 1923465 Active [address], [address] , [facility] 5 09:48:55 Goiter 2078633 Active 2024 Nery Sam MD [address] [place], [address] , [facility] 5 16:07:17 Chronic hoarsene ss 37259647382 05 Active 2024 Nery Sam MD [address] [place], [address] , [facility] 5 16:07:49 Problem Notes None recorded. Procedures Surgical History Date Name Laterality Status Provider Name and Address Organization Details Recorded Time [facility] 09:45:52 [facility] 09:46:02 Imaging Results None recorded. Procedure Notes None recorded. Medical Equipment None Reported. Allergies Allergen ID Allergen Name Allergen Category Reaction Reaction Severity Criticality Documentation Date Start Date Code Code System Note Provider Name and Address Organization Details Recorded Time 45796 Compazine medicatio n other Not available Not available 09/22/2022 06385 6 RxNorm React ion: panic attac k; Comme nt: Recor ded 02/13 2:33P M by Lianet yang, Offic e Visit ; Promo iwona; Charlette elliott ce: *; Reaso n: Drug aller gy; ; Not Available [facility] 3 02:23:49 49796 ketamine medicatio n Not available Not available Not available 09/22/2022 6130 RxNorm Comme nt: Recor ded 02/13 2:33P M by Lianet yang, Offic e Visit ; Promo iwona; Charlette elliott ce: *; Reaso n: Drug aller gy; ; Not Available [facility] 3 02:23:50 Medications Name Sig Start Date Stop Date Status Note LastModified by Organization Details LastModified Time quetiapin e 25 mg tablet TAKE 1 TABLET BY MOUTH UP TO THREE TIMES DAILY NEEDED FOR AGITATIO N/ANXIET Y 05/22 completed Not Available Not Available Not Available fluoxetin e 40 mg capsule TAKE 2 CAPSULES BY MOUTH IN THE MORNING 06/02 completed Not Available Not Available Not Available cyclobenz aprine 10 mg tablet Take 1 tablet by mouth twice daily as needed 05/22 completed Not Available Not Available Not Available gabapenti n 600 mg tablet TAKE 1 TABLET BY MOUTH TWICE DAILY 05/22 completed Not Available Not Available Not Available tizanidin e 4 mg tablet TAKE 1 TABLET BY MOUTH THREE TIMES DAILY NEEDED FOR MUSCLE SPASM active Not Available Not Available No t Available hydrocodo ne 5 mg-acetam inophen 325 mg tablet every 6 hours as needed for pain 05/22 completed 0; Recorded 02/14/20 22 2:45PM by Lianet goldman, Office Visit; Not Available Not Available Not Available prazosin 1 mg capsule daily 05/22 completed 0; Recorded 02/14/20 22 2:45PM by Linaet goldman, Office Visit; Not Available Not Available Not Available lisinopri l 20 mg tablet TAKE 1 TABLET BY MOUTH TWICE DAILY active Not Available Not Available No t Available prednison e 20 mg tablet TAKE 3 TABLET BY MOUTH 3 TIMES DAILY FOR 3 DAYS, THEN 1 TABLET BY MOUTH TWICE DAILY FOR 2 DAYS, THEN 1 TABLET DAILY FOR 2 DAYS 11/13 completed Not Available Not Available Not Available isosorbid e mononitra te ER 30 mg tablet,ex tended release 24 hr TAKE 1/2 (ONE-RADHA F) TABLET BY MOUTH ONCE DAILY IN THE MORNING active Not Available Not Available No t Available potassium chloride ER 10 mEq tablet,ex tended release TAKE 1 TABLET BY MOUTH ONCE DAILY NEEDED active Not Available Not Available No t Available tramadol 50 mg tablet TAKE 1 TABLET BY MOUTH 4 TIMES DAILY NEEDED FOR CHRONIC LOWER BACK PAIN 05/22 completed Not Available Not Available Not Available lorazepam 0.5 mg tablet TAKE 1 TABLET BY MOUTH ONCE DAILY NEEDED FOR ANXIETY active Not Available Not Available No t Available hydrocodo ne 7.5 mg-acetam inophen 325 mg tablet TAKE 1 TABLET BY MOUTH EVERY 4 HOURS NEEDED FOR PAIN . DO NOT EXCEED 6 PER 24 HOURS 05/22 completed Not Available Not Available Not Available pantopraz ole 40 mg tablet,de layed release TAKE 1 TABLET BY MOUTH ONCE DAILY FOR 90 DAYS 11/13 completed Not Available Not Available Not Available bumetanid e 0.5 mg tablet TAKE 1 TABLET BY MOUTH ONCE DAILY NEEDED FOR SWELLING active Not Available Not Available No t Available polymyxin B sulfate 10,000 unit-trim ethoprim 1 mg/mL eye drops INSTILL 1 DROP INTO AFFECTED EYE(S) EVERY 6 HOURS active Not Available Not Available No t Available nitroglyc sedrick 0.4 mg sublingua l tablet Place by sublingu al route. active Not Available Not Available No t Available betametha sone dipropion ate 0.05 % topical cream two times daily, as needed 05/22 completed june substitu te similar strength steroid due to coverage .; Recorded 02/14/20 3:08PM by Nery Sam MD, Office Visit; Refill Quantity : 60; Applicat or; Not Available Not Available Not Available omeprazol e 20 mg capsule,d elayed release TAKE 1 CAPSULE BY MOUTH TWICE DAILY 05/22 completed Not Available Not Available Not Available diclofena c sodium 75 mg tablet,de layed release TAKE 1 TABLET BY MOUTH EVERY 12 HOURS NEEDED FOR PAIN active Not Available Not Available No t Available hydroxyzi ne HCl 25 mg tablet TAKE 1 TABLET BY MOUTH ONCE OR TWICE A DAY IF NEEDED FOR ANXIETY 05/22 completed Not Available Not Available Not Available metoprolo l succinate ER 25 mg tablet,ex tended release 24 hr TAKE 1 TABLET BY MOUTH ONCE DAILY active Not Available Not Available No t Available methylpre dnisolone 4 mg tablets in a dose pack TAKE BY MOUTH DIRECTED ON INSIDE OF PACKAGE 05/22 completed Not Available Not Available Not Available propranol ol 20 mg tablet Take 1 tablet twice a day by oral route. 11/13 completed Not Available Not Available Not Available ondansetr on 4 mg disintegr ating tablet DISSOLVE 1 TABLET IN MOUTH THREE TIMES DAILY active Not Available Not Available No t Available fluoxetin e 20 mg capsule TAKE 1 CAPSULE BY MOUTH ONCE DAILY active Not Available Not Available No t Available prazosin 2 mg capsule TAKE 1 CAPSULE BY MOUTH AT BEDTIME 05/22 completed Not Available Not Available Not Available Bactrim DS 800 mg-160 mg tablet Take 1 tablet every 12 hours by oral route for 7 days. 11/27 completed Not Available Not Available Not Available rosuvasta tin 20 mg tablet TAKE 1 TABLET BY MOUTH ONCE DAILY active Not Available Not Available No t Available potassium acetate active Not Available Not Available Not Available aspirin active Not Available Not Avail able Not Available hydroxyzi ne HCl two times daily, as needed 05/22 completed Recorded 08/17/19 22 2:51PM by Nery Sam MD, Office Visit; Refill Quantity : 60; Tablet; Not Available Not Available Not Available bumetanid e active Not Available Not Available Not Available lisinopri l daily 05/22 completed Recorded 08/17/19 2:52PM by Nery Sam MD, Office Visit; Refill Quantity : 90; Tablet; Not Available Not Available Not Available Prozac daily 05/22 completed 0; Recorded 02/14/20 2:44PM by Lianet goldman, Office Visit; Not Available Not Available Not Available isosorbid e active Not Available Not Available Not Available metoprolo l succinate active Not Available Not Available No t Available gabapenti n two times daily 05/22 completed new dose.; Recorded 05/08/19 8:27AM by Nery Sam MD, Refill Request; Refill Quantity : 60; Tablet; Not Available Not Available Not Available rosuvasta tin active Not Available Not Available Not Available Natroba 0.9 % topical suspensio n APPLY LOTION FROM THE NECK DOWN AND LEAVE IN PLACE FOR 10 HOURS THEN WASH OFF, REPEAT IN 7 DAYS 05/22 completed Not Available Not Available Not Available Narcan 4 mg/actuat ion nasal spray CALL 911. ADMINIST ER A SINGLE SPRAY OF NARCAN IN ONE NOSTRIL. REPEAT EVERY 3 MINUTES NEEDED IF NO OR MINIMAL RESPONSE . 05/22 completed Not Available Not Available Not Available Zepbound 5 mg/0.5 mL subcutane ous pen injector INJECT 5 MG SUBCUTAN EOUSLY ONCE A WEEK active Not Available Not Available No t Available Zepbound 2.5 mg/0.5 mL subcutane ous pen injector INJECT 2.5 MG SUBCUTAN EOUSLY ONCE A WEEK active Not Available Not Available No t Available Zepbound active Not Available Not Avai lable Not Available Vitals Date Recorded Body weight Body mass index (BMI) Body height Oxygen saturation Oxygen saturation in Arterial blood by Pulse oximetry Heart rate Respiratory rate Body temperature Systolic And Diastolic Provider Name and Address Organization Details Last Updated DateTime 5 10018.1 g 33.6 kg/m2 162.56 cm 96 % 96 % 94 /min 16 /min 98.2 [degF] 148/80 mm[Hg] Miriam Vásquez [facility] 5 09:47:58 Date Recorded Body height Body mass index (BMI) Body weight Heart rate Systolic And Diastolic Provider Name and Address Organization Details Last Updated DateTime 06/02/2024 162.56 cm 34.3 kg/m2 39731.47 g 70 /min 151/100 mm[Hg] LIANET PEGUERO [facility] 5 15:30:53 Date Recorded Body weight Body mass index (BMI) Body height Oxygen saturation Oxygen saturation in Arterial blood by Pulse oximetry Heart rate Body temperature Systolic And Diastolic Provider Name and Address Organization Details Last Updated DateTime 3 688644. 06 g 39.1 kg/m2 162.56 cm 96 % 96 % 114 /min 98.1 [degF] 142/80 mm[Hg] LESA ORDAZ [facility] 3 14:48:40 Date Recorded Body height Body mass index (BMI) Body weight Body temperature Heart rate Oxygen saturation Oxygen saturation in Arterial blood by Pulse oximetry Systolic And Diastolic Provider Name and Address Organization Details Last Updated DateTime 5 162.56 cm 33.3 kg/m2 47902.6 2 g 98.4 [degF] 108 /min 95 % 95 % 148/84 mm[Hg] Brisa Gibbons [facility] 5 08:41:24 Social History Question Answer Notes LastModified by Organizat ion Details LastModified Time Tobacco Smoking Status Former Smoker vape Brisa mesa [facility] 11/13/2024 08:34:41 Which Illicit Or Recreational Drugs Have You Used? Marijuana [email or web address] Information not available 06/15/2022 What Was The Date Of Your Most Recent Tobacco Screening? 11/13/2024 [email or web address] Information not available 11/13/2024 Sex: Unknown Functional Status Question Answer Note LastModified by Organizat ion Details LastModified Time Do you use any illicit or recreational drugs? Yes [email or web address] Information not available 06/15/2022 What is your level of alcohol consumption? None [email or web address] Information not available 06/15/2022 Mental Status None recorded. Family History Nothing Reported. Medical History No medical history recorded. Gynecological HistoryNo gynecological history recorded. Obstetrics History GPAL:G 0 P 0 0 0 0 Immunizations Vaccine Type Date Status Note Provider Nam e and Address Organization Details Recorded Time Tdap 0 completed Not Available [facility] 06/15/2024 12:41:21 Hep A, adult 9 completed Not Available [facility] 06/15/2024 12:41:21 Tdap 1 completed Not Available [facility] 06/15/2024 12:41:21 COVID-19, mRNA, LNP-S, PF, 100 mcg/0.5mL dose or 50 mcg/0.25mL dose 1 completed Not Available [facility] 06/15/2024 12:41:21 Influenza, MDCK, trivalent, PF 5 completed Not Available [facility] 06/15/2024 12:41:21 COVID-19, mRNA, LNP-S, PF, 50 mcg/0.5 mL 5 completed Not Available [facility] 06/15/2024 12:41:21 Influenza, split virus, trivalent, preservative 0 completed Not Available [facility] 09/22/2022 02:32:38 Past Encounters Encounter ID Performer Location Encounter Start Date Encounter Closed Date Diagnosis/Indication Diagnosis SNOMED-CT Code Diagnosis ICD10 Code Diagnosis IMO Codes Diagnosis Note [id number] Nery Sam MD [facility] [address] [place] [address] 06/15/2022 14:23:52 06/20/2022 10:16:40 Generalized anxiety disorder 65464525 F41.1 Major depr essive disorder 970264951 F32.9 Gastroesop hageal reflux disease 568842902 K21.9 Benign ess ential hypertension 0630461 I10 [id number] BRENDEN FRANCIS [facility] [address] [place] [address] 05/22/2024 09:35:07 05/22/2024 10:39:38 Strain of left trapezius muscle 9405916574 9845627 S29.012A Discussed to take 400mg ibuprofen twice a day for next 5 days with food.Use tizanidine as prescribed .Apply a heating pad for 10 minutes every 2 hours while awake. Perform slow stretches 2 times a day. Lymphadenopathy 53293815 R59.0 Pt scheduled appt to f/u with PCP regarding swelling. [id number] Nery Sam MD [facility] ([facility]) [address] [place], [place] [address] 06/02/2024 15:18:00 06/02/2024 16:19:41 Goiter 7770447 E04.9 Chronic hoarseness 67217 70250 105 R49.0 Generalize d anxiety disorder 10229181 F41.1 [id number] Nery Sam MD [facility] ([facility]) [address] [place], [place] [address] 06/15/2024 12:40:56 06/16/2024 10:48:36 [id number] BRENDEN FRANCIS [facility] ([facility] [address] [place] [address] 5 11/13/2024 08:28:21 11/13/2024 17:36:35 Acute infectious conjunctivitis 792220584 H10.32 [id number] counseled on dx. warm compresses and keep eyelids clean. counseled on limiting spread of illness. will start topical abx. Return to office with no improvemen t or any problems. Cellulitis of left buttock 3412235818 7107 L03.317 319446 Discussed use of warm compress to the area for 5 minutes 3-4 times a day. Use topical ointment as prescribed and take antibiotic as directed.W aleksey with soap and water daily.Do NOT poke/squee ze the area.F/u if you develop increased swelling, redness, pain or concerns arise. Health Concerns Section Related Observation LastModified by Organization Detai ls LastModified Time None Recorded Concern Status LastModified by Organization Details LastModified Time None Recorded Advance Directives Directive None Recorded Payers Insurance Date Sequence Insurance Name Policy Number Policy Millard Covered Member ID Millard Member ID Guarantor Name 07/10/2024 1 *SELF PAY* Nieves hadley Dusty Wheeler 06/03/2024 1 [facility] ([place] [facility] Marianne Dusty Wheeler [id number] Marianne Wheeler 11/14/2024 1 [facility] (MEDICAID HMO) Marianne Wheeler [id number] Marianne Wheeler 11/13/2024 [place] Marianne Wheeler [id number] Marianne Wheeler 11/16/2024 [facility] (MEDICAID HMO) Marianne Wheeler [id number] Marianne Wheeler Notes Date Note Type Note Provider Name and Address Organization Details Recorded Time 06/15/2022 text/html Generalized Anxi ety DisorderReported by PatientHPIFor associated symptoms, patient reportsdifficulty controlling worry,excess anxiety,chest pain, andhigh irritability. For severity, patient reportssevere.She and daughters are having some issues. Has been having a hard time at home with the kids.Struggling with mental health. Nery Sam MD [address] [place], [address], [facility] 06/15/2022 15:23:04 05/22/2024 text/html Joint PainReport ed by PatientROS as noted in the HPI walk in patientpatient is here today for neck pain that started over a month ago. It radiates into her left shoulder. Pain worsens with turning head and using left arm. States she was released from penit[facility] last month and has not been evaluated for this. Also states her anterior lower neck started to swell. Feels well otherwise. BRENDEN FRANCIS [address] [place], [address], [facility], [place] 05/22/2024 10:39:16 11/13/2024 text/html ROS as noted in the HPI walk in ptPts left eye is red and itchy that started yesterday. States she has some drainage. no recent cough/cold. Also states she has a tender small area to her left buttock. Concerned about an abscess because she has hx of MRSA DEAN JIMENES, [facility] [place], [address], [facility], [place] 11/13/2024 17:31:33 OBGyn Episode No OBEpisode recorded.
[2024-12-09 13:28] LABS: Hematocrit 36.8 % (36-47); Hemoglobin 12.70 g/dL (11.27-16.99); Mean Corpuscular HGB Conc 34.5 g/dL (30-55); Mean Corpuscular Hemoglobin 29.7 pg (27-33); Mean Corpuscular Volume 86.2 fl (85-98); Nucleated Red Blood Cells % 0 %; Platelet Count 315 10^3/cmm (157-399); Red Blood Count 4.27 10^6/uL (3.85-5.65); White Blood Count 16.88 10^3/uL (3.29-11.43)
[2024-12-09 13:34] LABS: Glucose Urine UA Negative (Normal); Nitrate Urine Negative (Negative); Specific Gravity, Urine 1.020 (1.005-1.030)
[2024-12-09 13:39] LABS: Add Urine Microscopic? YES
[2024-12-09 13:40] LABS: PCP Screen Urine Negative (Negative)
[2024-12-09] MEDS: LORazepam 1 MG/0.5 ML injection 2 MG IVP ×3 (13:42→21:02)
[2024-12-09 13:47] LABS: Alanine Aminotransferase 73 U/L (0-33); Albumin Level 4.9 g/dL (3.5-5.2); Alkaline Phosphatase 98 U/L (35-105); Anion Gap 31.3 (5-19); Aspartate Amino Transferase 196 U/L (0-32); Blood Urea Nitrogen 52 mg/dL (6-20); Calcium 10.4 mg/dL (8.5-10.5); Carbon Dioxide 14 mmol/L (22-29); Chloride 94 mmol/L (98-107); Creatinine Clr Calc Pharmacy 13.7157; Globulin 3.3 g/dL (1.3-4.6); Glucose 103 mg/dL (65-115); Osmolality Calculated 296 mOsm/kg (285-295); Potassium 3.3 mmol/L (3.5-5.1); Sodium 136 mmol/L (136-145); Total Protein 8.2 g/dL (6.6-8.7)
--- NOTE | 2024-12-09 14:11 | PC.PHAR ---
Pt unable to verify home medications. Med rec completed with [facility] with last fill date and day supply added. Some medications have not been filled in several months but left on med list.
[2024-12-09] MEDS: sodium chloride 0.9% 2,558.25 ML 2558.25 ML IV (14:14)
--- NOTE | 2024-12-09 14:22 | W.ED.AMS ---
HPI - Altered Mental Status General: Chief Complaint: Altered Mental Status Stated Complaint: Substance Abuse Time Seen by Provider: 12/09/24 13:02 History of Present Illness: 49-year-old female presents emergency room with law enforcement and EMS accompanying her. She was having hallucinations and bizarre behavior in a public area bystander called 911 EMS and law enforcement responded. Patient is alert to self but is behaving bizarrely admits to having done methamphetamine recently. Related Data Home Medications ?Medication ?Instructions ?Recorded ?Confirmed fluoxetine 20 mg capsule (Prozac) 20 mg PO DAILY 05/25/24 12/09/24 ibuprofen 200 mg tablet 200 mg PO Q6H PRN Pain 05/25/24 12/09/24 lisinopril 20 mg tablet 20 mg PO DAILY 05/25/24 12/09/24 pantoprazole 20 mg tablet,delayed 20 mg PO DAILY 05/25/24 12/09/24 release propranolol 20 mg tablet 20 mg PO BID 05/25/24 12/09/24 tizanidine 4 mg tablet 4 mg PO Q8H PRN Muscle Spasm 05/25/24 12/09/24 bumetanide 0.5 mg tablet 0.5 mg PO DAILY PRN swelling 12/09/24 12/09/24 isosorbide mononitrate 30 mg 15 mg PO QAM 12/09/24 12/09/24 tablet,extended release 24 hr lorazepam 0.5 mg tablet 0.5 mg PO DAILY PRN Anxiety 12/09/24 12/09/24 metoprolol succinate 25 mg 25 mg PO DAILY 12/09/24 12/09/24 tablet,extended release 24 hr nitroglycerin 0.4 mg sublingual See Rx Instructions .Route .COMPLEX 12/09/24 12/09/24 tablet ondansetron 4 mg disintegrating 4 mg PO TID 12/09/24 12/09/24 tablet potassium chloride 10 mEq 10 meq PO DAILY PRN swelling 12/09/24 12/09/24 tablet,extended release rosuvastatin 20 mg tablet 20 mg PO DAILY 12/09/24 12/09/24 tirzepatide (weight loss) 5 mg/0.5 5 mg SUBCUT Q7D 12/09/24 12/09/24 mL subcutaneous pen injector (Zepbound) Previous Rx's ?Medication ?Instructions ?Recorded diclofenac sodium 75 mg 75 mg PO Q12H PRN pain #20 tabs 07/13/24 tablet,delayed release Allergies Allergy/AdvReac Type Severity Reaction Status Date / Time ketamine Allergy ADR-Anxiety Verified 05/25/24 10:33 prochlorperazine (From Allergy ADR-Agitate Verified 05/25/24 10:33 Compazine) d Review of Systems Const: Denies: fever(s) or chills Card: Denies: chest pain Resp: Denies: dyspnea GI: Denies: abdominal pain : Denies: dysuria, urinary frequency or urinary urgency Musc: Denies: neck pain or back pain Skin/Breast: Denies: rash PFSH ED PFSH: Medical History Nicotine dependence, unspecified, uncomplicated Cannabis dependence, uncomplicated Methamphetamine use disorder, severe Major depressive disorder, recurrent, in partial remission Methamphetamine use disorder, mild, in early remission, abuse Following information retrieved/edited from Behavior Assessment Report completed on 06/13/21: she reports a pattern of methamphetamine use leading to clinically significant impairment or distress, as manifested by recurrent stimulant use resulting in a failure to fulfill major role obligations at work, school, or home; continued stimulant use despite having persistent or recurrent social or interpersonal problems caused or exacerbated by the effects of the stimulant; stimulant use is continued despite knowledge of having a persistent or recurrent physical or psychological problem that is likely to have been caused or exacerbated by the stimulant. Hx MRSA infection Hx of primary hypertension History of anxiety History of depression Hx of heat stroke Migraine Sleep apnea Gastroesophageal reflux History of kidney stones History of vaginal delivery History of fracture Bipolar disorder PTSD (post-traumatic stress disorder) History of methamphetamine abuse Substance abuse Olecranon bursitis, left elbow Surgical History Hx of dilation and curettage Family History Father CAD (coronary artery disease) Other Cancer Dementia Hypertension Major depressive disorder, recurrent, in partial remission Social History Smoking and tobacco/nicotine status: current every day tobacco/nicotine user cigarettes Packs smoked per day: 0.5 Years cigarettes smoked: 30 Quit status (tobacco/nicotine): not considering quitting Second hand smoke exposure: No Alcohol intake: never Substance/Drug Use: former Date of last use: 2 months from pot and 6 months from meth Adopted: No Caregiver/support person: No Lives independently: Yes Household members: significant other and children Housing: Manufactured/Mobile home Marital status: Number of children: 2 Number of grandchildren: 0 Highest education level completed: GED or Equivalent service: No Current occupational status: disabled Current occupation: trying to get disability Pets and animals: Yes Pets & animals: cat(s), dog(s) and farm animals Farm Animals: other Leisure activites: music and other Leisure activities details: watch TV Sexually active: No Do you think of yourself as: Straight/Heterosexual Current gender identity: Female Rach/Anglican: Muslim Special rach needs: No Agree to transfusion: Yes Female Reproductive History: Para: 2 Spontaneous abortions: Yes Physical Exam Const: ORIENTATION/CONSCIOUSNESS: Yes awake HENMT: COMMON NORMALS: normocephalic, atraumatic and hearing grossly normal bilaterally HEAD & SCALP: normocephalic and atraumatic Resp: COMMON NORMALS: normal respiratory effort, No retractions, No use of accessory muscles and clear to auscultation bilaterally AUSCULTATION: clear to auscultation bilaterally Cardio: COMMON NORMALS: regular rate, regular rhythm and No murmurs present (Cardio) RATE: regular rate RHYTHM: regular rhythm GI: COMMON NORMALS: Soft to palpation and No hepatosplenomegaly present AUSCULTATION: Yes normoactive bowel sounds PALPATION: Yes Soft to palpation, No Tenderness to palpation present (GI), No Guarding due to palpation present (GI) and Yes No hepatosplenomegaly present Extremity: COMMON NORMALS: normal to inspection, capillary refill normal, no clubbing, cyanosis or edema, no calf tenderness and no pedal edema Psych: COMMON NORMALS: negative for Normal thought process present APPEARANCE: Yes unkempt and Yes disheveled ATTITUDE: Yes agitated ACTIVITY/MOTOR BEHAVIOR: Yes psychomotor agitation, Yes hyperactivity and Yes restless SPEECH: Yes excessive, Yes rapid and Yes Pressured speech present MOOD & AFFECT: Yes irritable THOUGHT PROCESS: abnormal THOUGHT CONTENT: Yes Suicidality present (Patient stated to nurse she was going to kill herself) Skin: COMMON NORMALS: no rashes or lesions noted GENERAL SKIN EXAM: no rashes or lesions noted Course Vital Signs: Vital signs: Vital Signs Temperature 98.9 F 12/09/24 16:36 Pulse Rate 78 12/09/24 16:36 Respiratory Rate 17 12/09/24 16:36 Blood Pressure 112/75 12/09/24 16:36 Pulse Oximetry 96 12/09/24 16:36 Oxygen Delivery Me thod Room Air 12/09/24 16:56 MDM - Altered Mental Status Medical Decision Making Labs and imaging reviewed patient has acute kidney injury. She does have some leukocytosis suspect this is due to demargination from her substance abuse as well as volume depletion. Her T. bili and transaminases are also elevated. Discussed with hospitalist will admit orders written patient placed on 96-hour hold during the course of the ER evaluation she admits stated to nurse that she was going to kill herself. Psychiatry was also been consulted. Medical Records I reviewed the patient's medical records. Lab Data I reviewed the patient's lab results. 12/09/24 13:20 12/09/24 13:20 Laboratory Results WBC 16.88 10^3/uL (3.29-11.43) H 12/09/24 13:20 RBC 4.27 10^6/uL (3.85-5.65) 12/09/24 13:20 Hgb 12.70 g/dL (11.27-16.99) 12/09/24 13:20 Hct 36.8 % (36-47) 12/09/24 13:20 MCV 86.2 fl (85-98) 12/09/24 13:20 MCH 29.7 pg (27-33) 12/09/24 13:20 MCHC 34.5 g/dL (30-55) 12/09/24 13:20 RDW 14.8 % (12.1-15.1) 12/09/24 13:20 Plt Count 315 10^3/cmm (157-399) 12/09/24 13:20 MPV 10.5 fL (7.4-10.4) H 12/09/24 13:20 Neut % (Auto) 81.5 % 12/09/24 13:20 Lymph % (Auto) 7.7 % 12/09/24 13:20 [place] % (Auto) 10.2 % 12/09/24 13:20 Eos % (Auto) 0.0 % 12/09/24 13:20 Baso % (Auto) 0.1 % 12/09/24 13:20 Neut # (Auto) 13.75 10^3/uL (1.8-7.7) H 12/09/24 13:20 Lymph # (Auto) 1.3 10^3/uL (0.8-4.8) 12/09/24 13:20 [place] # (Auto) 1.7 10^3/uL (0.2-0.9) H 12/09/24 13:20 Eos # (Auto) 0.0 10^3/uL (0.0-0.8) 12/09/24 13:20 Baso # (Auto) 0.0 10^3/uL (0.0-0.1) 12/09/24 13:20 Nucleated RBC % (auto) 0 % 12/09/24 13:20 Nucleated RBCs # 0.0 /100WBC 12/09/24 13:20 Sodium 136 mmol/L (136-145) 12/09/24 13:20 Potassium 3.3 mmol/L (3.5-5.1) L 12/09/24 13:20 Chloride 94 mmol/L (98-107) L 12/09/24 13:20 Carbon Dioxide 14 mmol/L (22-29) L 12/09/24 13:20 Anion Gap 31.3 (5-19) H 12/09/24 13:20 BUN 52 mg/dL (6-20) H 12/09/24 13:20 Creatinine 5.3 mg/dL (0.5-0.9) H 12/09/24 13:20 GFR Calculation 8.6 mL/min (90-130) L 12/09/24 13:20 Glucose 103 mg/dL (65-115) 12/09/24 13:20 Calculated Osmolality 296 mOsm/kg (285-295) H 12/09/24 13:20 Calcium 10.4 mg/dL (8.5-10.5) 12/09/24 13:20 Magnesium 1.9 mg/dL (1.7-2.3) 12/09/24 14:18 Total Bilirubin 1.5 mg/dL (0.15-1.2) H 12/09/24 13:20 AST 196 U/L (0-32) H 12/09/24 13:20 ALT 73 U/L (0-33) H 12/09/24 13:20 Alkaline Phosphatase 98 U/L (35-105) 12/09/24 13:20 Ammonia 49 umol/L (11-51) 12/09/24 14:18 Total Protein 8.2 g/dL (6.6-8.7) 12/09/24 13:20 Albumin 4.9 g/dL (3.5-5.2) 12/09/24 13:20 Globulin 3.3 g/dL (1.3-4.6) 12/09/24 13:20 Urine Color Dark yellow (Yellow) A 12/09/24 13:20 Urine Appearance Turbid (CLEAR) A 12/09/24 13:20 Urine pH 5.0 (5-7) 12/09/24 13:20 Ur Specific [place] 1.020 (1.005-1.030) 12/09/24 13:20 Urine Protein 2+ (Negative) A 12/09/24 13:20 Urine Glucose (UA) Negative (Normal) 12/09/24 13:20 Urine Ketones 1+ (Negative) H 12/09/24 13:20 Urine Blood 3+ (Negative) A 12/09/24 13:20 Urine Nitrate Negative (Negative) 12/09/24 13:20 Urine Bilirubin Negative (Negative) 12/09/24 13:20 Urine Urobilinogen 1.0 mg/dL (Negative) 12/09/24 13:20 Ur Leukocyte Esterase Trace (Negative) A 12/09/24 13:20 Urine RBC 3-5 /hpf (0-2) 12/09/24 13:20 Urine WBC 0-5 /hpf (0-5) 12/09/24 13:20 Ur Squamous Epith Cells 21-50 /hpf (0-5) H 12/09/24 13:20 Calcium Oxalate Crystal 0-4 /hpf H 12/09/24 13:20 Amorphous Sediment Not Reportable 12/09/24 13:20 Urine Bacteria None seen /hpf (NONE) 12/09/24 13:20 Hyaline Casts 75.28 /lpf 12/09/24 13:20 Salicylates < 0.3 mg/dL (3-10) L 12/09/24 14:18 Urine Opiates Screen Negative ng/mL (Negative) 12/09/24 13:20 Acetaminophen < 5.0 ug/mL (10-30) L 12/09/24 14:18 Ur Barbiturates Screen Negative ng/mL (Negative) 12/09/24 13:20 Ur Phencyclidine Scrn Negative ng/mL (Negative) 12/09/24 13:20 Ur Amphetamines Screen Positive ng/mL (Negative) H 12/09/24 13:20 U Benzodiazepines Scrn Positive ng/mL (Negative) H 12/09/24 13:20 Urine Cocaine Screen Negative ng/mL (Negative) 12/09/24 13:20 U Marijuana (THC) Screen Positive ng/mL (Negative) H 12/09/24 13:20 Ethyl Alcohol < 10 mg/dL (0-10) 12/09/24 14:18 No radiology studies performed this visit Discharge Plan Discharge Patient Disposition: Admitted As Inpatient Admit Provider: Ashly Fuller Clinical Impression: Acute kidney injury, Methamphetamine use disorder, severe, Cannabis dependence, uncomplicated, Transaminitis, Suicidal ideation Condition: Stable Coding Level of Care Code ED Crating And Moving Estimator for Josephine Rehman
[2024-12-09 14:44] LABS: Ammonia 49 umol/L (11-51)
[2024-12-09 14:46] LABS: Acetaminophen < 5.0 ug/mL (10-30); Alcohol Level < 10 mg/dL (0-10); Magnesium 1.9 mg/dL (1.7-2.3); Salicylate < 0.3 mg/dL (3-10)
--- NOTE | 2024-12-09 16:27 | PC.NURSE ---
Attempted to read involuntary 96 hour hold rights to patient. Patient is sleeping at this time with normal respirations. Copy of rights was placed at the bedside.
--- NOTE | 2024-12-09 18:00 | PM.HP ---
Providers/Chief Complaint Admitting Physician: Ashly Fuller MD Primary Care Provider: Bobby Sam MD Chief Complaint: Substance Abuse History of Present Illness Marianne Wheeler is a 49 year old female brought into the emergency room via EMS and law enforcement. Reportedly patient was found on the road, she appears to be homeless, was having hallucinations and bizarre behavior therefore a bystander called 911. She was brought in with an altered mental status. Reports having used drugs recently. She is able to state her correct name however does not tell us much else. She denies being in any pain at this time. Review of her chart shows that she has a history of MRSA SSTI in 2020 and is known to be hep C positive. She is unable to tell me if she has had any treatment for this in the past. She does report suicidal ideation and intention of consuming multiple medications in a suicide attempt. She has been placed on a 96-hour hold. Review of Systems General: Reports: ROS unobtainable due to medical condition Medications/Allergies Home Medications ?Medication ?Instructions ?Recorded ?Confirmed ?Last Taken ?Type fluoxetine 20 mg capsule (Prozac) 20 mg PO DAILY 05/25/24 12/09/24 05/25/24 History ibuprofen 200 mg tablet 200 mg PO Q6H PRN Pain 05/25/24 12/09/24 05/25/24 History lisinopril 20 mg tablet 20 mg PO DAILY 05/25/24 12/09/24 05/25/24 History pantoprazole 20 mg tablet,delayed 20 mg PO DAILY 05/25/24 12/09/24 05/25/24 History release propranolol 20 mg tablet 20 mg PO BID 05/25/24 12/09/24 05/25/24 History tizanidine 4 mg tablet 4 mg PO Q8H PRN Muscle Spasm 05/25/24 12/09/24 Unknown History diclofenac sodium 75 mg 75 mg PO Q12H PRN pain #20 tabs 07/13/24 12/09/24 Unknown Rx tablet,delayed release bumetanide 0.5 mg tablet 0.5 mg PO DAILY PRN swelling 12/09/24 12/09/24 Unknown History isosorbide mononitrate 30 mg 15 mg PO QAM 12/09/24 12/09/24 Unknown History tablet,extended release 24 hr lorazepam 0.5 mg tablet 0.5 mg PO DAILY PRN Anxiety 12/09/24 12/09/24 Unknown History metoprolol succinate 25 mg 25 mg PO DAILY 12/09/24 12/09/24 Unknown History tablet,extended release 24 hr nitroglycerin 0.4 mg sublingual See Rx Instructions .Route .COMPLEX 12/09/24 12/09/24 Unknown History tablet ondansetron 4 mg disintegrating 4 mg PO TID 12/09/24 12/09/24 Unknown History tablet potassium chloride 10 mEq 10 meq PO DAILY PRN swelling 12/09/24 12/09/24 Unknown History tablet,extended release rosuvastatin 20 mg tablet 20 mg PO DAILY 12/09/24 12/09/24 Unknown History tirzepatide (weight loss) 5 mg/0.5 5 mg SUBCUT Q7D 12/09/24 12/09/24 Unknown History mL subcutaneous pen injector (Zepbound) Allergies Allergy/AdvReac Type Severity Reaction Status Date / Time ketamine Allergy ADR-Anxiety Verified 05/25/24 10:33 prochlorperazine (From Allergy ADR-Agitate Verified 05/25/24 10:33 Compazine) d PFSH Acute PFSH: Medical History Nicotine dependence, unspecified, uncomplicated Cannabis dependence, uncomplicated Methamphetamine use disorder, severe Major depressive disorder, recurrent, in partial remission Methamphetamine use disorder, mild, in early remission, abuse Following information retrieved/edited from Behavior Assessment Report completed on 06/13/21: she reports a pattern of methamphetamine use leading to clinically significant impairment or distress, as manifested by recurrent stimulant use resulting in a failure to fulfill major role obligations at work, school, or home; continued stimulant use despite having persistent or recurrent social or interpersonal problems caused or exacerbated by the effects of the stimulant; stimulant use is continued despite knowledge of having a persistent or recurrent physical or psychological problem that is likely to have been caused or exacerbated by the stimulant. Hx MRSA infection Hx of primary hypertension History of anxiety History of depression Hx of heat stroke Migraine Sleep apnea Gastroesophageal reflux History of kidney stones History of vaginal delivery History of fracture Bipolar disorder PTSD (post-traumatic stress disorder) History of methamphetamine abuse Substance abuse Olecranon bursitis, left elbow Surgical History Hx of dilation and curettage Family History Father CAD (coronary artery disease) Other Cancer Dementia Hypertension Major depressive disorder, recurrent, in partial remission Social History Smoking and tobacco/nicotine status: current every day tobacco/nicotine user cigarettes Packs smoked per day: 0.5 Years cigarettes smoked: 30 Quit status (tobacco/nicotine): not considering quitting Second hand smoke exposure: No Alcohol intake: never Substance/Drug Use: former Date of last use: 2 months from pot and 6 months from meth Adopted: No Caregiver/support person: No Lives independently: Yes Household members: significant other and children Housing: Manufactured/Mobile home Marital status: Number of children: 2 Number of grandchildren: 0 Highest education level completed: GED or Equivalent service: No Current occupational status: disabled Current occupation: trying to get disability Pets and animals: Yes Pets & animals: cat(s), dog(s) and farm animals Farm Animals: other Leisure activites: music and other Leisure activities details: watch TV Sexually active: No Do you think of yourself as: Straight/Heterosexual Current gender identity: Female Rach/Church: Rastafarian Special rach needs: No Agree to transfusion: Yes Female Reproductive History: Para: 2 Spontaneous abortions: Yes Vitals/I&O/Wt Last Vital Signs Temp 96 F L 12/10/24 08:00 Pulse 96 12/10/24 08:00 Resp 24 H 12/10/24 08:00 BP 84/53 12/10/24 08:00 Pulse Ox 96 12/10/24 08:00 O2 Del Method Room Air 12/10/24 08:00 12/09/24 12/10/24 12/10/24 22:59 06:59 14:59 Intake Total 3018.25 / 3018.25 2120 / 5138.25 Output Total 350 / 350 Balance 3018.25 / 3018.25 1770 / 4788.25 Weight last 48 hrs Weight 81.825 kg Weight 80 kg Weight 85.275 kg Physical Exam Narrative: General: No acute distress, AO x1 HEENT: PERRLA, pupils bilaterally equal and reactive, pallors not present Chest: Normal vesicular breath sounds, no added sounds, equal good air entry bilaterally CVS: S1-S2 regular, no murmurs, no tachycardia, no gallops, no rubs Abdomen: Soft, nontender, no organomegaly, bowel sounds present Neuro: No focal deficits, moves all extremities Urinary Catheter Management: Giordano Latex: Cath Placed During This Visit: yes Reason for Continuing Indwelling Catheter: Accurate Measurement of Urinary Output in Critically Ill Patients Urinary Catheter Date of Insertion: 12/10/24 Urinary Catheter Time of Insertion: 01:00 Data 12/10/24 01:17 12/10/24 01:17 Micro: Microbiology 12/09/24 14:29 Blood Culture - Preliminary Blood SPECIMEN COLLECTED 12/09/24 14:18 Blood Culture - Preliminary Blood SPECIMEN COLLECTED Other data: Laboratory Results WBC 13.07 10^3/uL (3.29-11.43) H 12/10/24 01:17 RBC 3.98 10^6/uL (3.85-5.65) 12/10/24 01:17 Hgb 11.70 g/dL (11.27-16.99) 12/10/24 01:17 Hct 36.4 % (36-47) 12/10/24 01:17 MCV 91.5 fl (85-98) D 12/10/24 01:17 MCH 29.4 pg (27-33) 12/10/24 01:17 MCHC 32.1 g/dL (30-55) D 12/10/24 01:17 RDW 15.0 % (12.1-15.1) 12/10/24 01:17 Plt Count 242 10^3/cmm (157-399) 12/10/24 01:17 MPV 10.5 fL (7.4-10.4) H 12/10/24 01:17 Neut % (Auto) 73.8 % 12/10/24 01:17 Lymph % (Auto) 15.5 % 12/10/24 01:17 [place] % (Auto) 9.9 % 12/10/24 01:17 Eos % (Auto) 0.1 % 12/10/24 01:17 Baso % (Auto) 0.3 % 12/10/24 01:17 Neut # (Auto) 9.66 10^3/uL (1.8-7.7) H 12/10/24 01:17 Lymph # (Auto) 2.0 10^3/uL (0.8-4.8) 12/10/24 01:17 [place] # (Auto) 1.3 10^3/uL (0.2-0.9) H 12/10/24 01:17 Eos # (Auto) 0.0 10^3/uL (0.0-0.8) 12/10/24 01:17 Baso # (Auto) 0.0 10^3/uL (0.0-0.1) 12/10/24 01:17 Nucleated RBC % (auto) 0 % 12/10/24 01:17 Nucleated RBCs # 0.0 /100WBC 12/10/24 01:17 Sodium 138 mmol/L (136-145) 12/10/24 01:17 Potassium 4.1 mmol/L (3.5-5.1) 12/10/24 01:17 Chloride 102 mmol/L (98-107) 12/10/24 01:17 Carbon Dioxide 13 mmol/L (22-29) L 12/10/24 01:17 Anion Gap 27.1 (5-19) H 12/10/24 01:17 BUN 54 mg/dL (6-20) H 12/10/24 01:17 Creatinine 4.3 mg/dL (0.5-0.9) H 12/10/24 01:17 GFR Calculation 11.0 mL/min (90-130) L 12/10/24 01:17 Glucose 71 mg/dL (65-115) 12/10/24 01:17 Calculated Osmolality 299 mOsm/kg (285-295) H 12/10/24 01:17 Calcium 8.3 mg/dL (8.5-10.5) L 12/10/24 01:17 Magnesium 2.1 mg/dL (1.7-2.3) 12/10/24 01:17 Total Bilirubin 0.9 mg/dL (0.15-1.2) 12/10/24 01:17 AST 223 U/L (0-32) H 12/10/24 01:17 ALT 84 U/L (0-33) H 12/10/24 01:17 Alkaline Phosphatase 85 U/L (35-105) 12/10/24 01:17 Ammonia 49 umol/L (11-51) 12/09/24 14:18 Troponin T Baseline 23 ng/L (0-10) H 12/09/24 18:50 Troponin T 120 Minute 23.20 ng/L (0-10) H 12/09/24 20:50 Delta Troponin T 0.20 ABS# (0-10) 12/09/24 20:50 Troponin T Hi Sens 6Hr 20.63 ng/L (0-10) H 12/10/24 01:17 Troponin T Hi Sens 6Hr Delta -2.37 ng/L (0-12) L 12/10/24 01:17 Total Protein 6.4 g/dL (6.6-8.7) L D 12/10/24 01:17 Albumin 4.2 g/dL (3.5-5.2) 12/10/24 01:17 Globulin 2.2 g/dL (1.3-4.6) 12/10/24 01:17 TSH 1.57 uIU/mL (0.27-4.20) 12/09/24 13:20 Urine Color Dark yellow (Yellow) A 12/09/24 13:20 Urine Appearance Turbid (CLEAR) A 12/09/24 13:20 Urine pH 5.0 (5-7) 12/09/24 13:20 Ur Specific [place] 1.020 (1.005-1.030) 12/09/24 13:20 Urine Protein 2+ (Negative) A 12/09/24 13:20 Urine Glucose (UA) Negative (Normal) 12/09/24 13:20 Urine Ketones 1+ (Negative) H 12/09/24 13:20 Urine Blood 3+ (Negative) A 12/09/24 13:20 Urine Nitrate Negative (Negative) 12/09/24 13:20 Urine Bilirubin Negative (Negative) 12/09/24 13:20 Urine Urobilinogen 1.0 mg/dL (Negative) 12/09/24 13:20 Ur Leukocyte Esterase Trace (Negative) A 12/09/24 13:20 Urine RBC 3-5 /hpf (0-2) 12/09/24 13:20 Urine WBC 0-5 /hpf (0-5) 12/09/24 13:20 Ur Squamous Epith Cells 21-50 /hpf (0-5) H 12/09/24 13:20 Calcium Oxalate Crystal 0-4 /hpf H 12/09/24 13:20 Amorphous Sediment Not Reportable 12/09/24 13:20 Urine Bacteria None seen /hpf (NONE) 12/09/24 13:20 Hyaline Casts 75.28 /lpf 12/09/24 13:20 Salicylates < 0.3 mg/dL (3-10) L 12/09/24 14:18 Urine Opiates Screen Negative ng/mL (Negative) 12/09/24 13:20 Acetaminophen < 5.0 ug/mL (10-30) L 12/09/24 14:18 Ur Barbiturates Screen Negative ng/mL (Negative) 12/09/24 13:20 Ur Phencyclidine Scrn Negative ng/mL (Negative) 12/09/24 13:20 Ur Amphetamines Screen Positive ng/mL (Negative) H 12/09/24 13:20 U Benzodiazepines Scrn Positive ng/mL (Negative) H 12/09/24 13:20 Urine Cocaine Screen Negative ng/mL (Negative) 12/09/24 13:20 U Marijuana (THC) Screen Positive ng/mL (Negative) H 12/09/24 13:20 Ethyl Alcohol < 10 mg/dL (0-10) 12/09/24 14:18 A&P Assessment and plan 1. Polysubstance abuse: 2. Acute intoxication from hallucinogens: 3. Suicidal ideation: 4. Acute kidney injury: Plan: 49-year-old lady reportedly homeless, brought in today via EMS and law enforcement after being found to have bizarre behavior noticed by a bystander. She is unable to provide any meaningful history except states that she took a handful of pills. Admits to amphetamine use Urine drug screen today is positive for amphetamines, benzodiazepines and marijuana. Alcohol is negative. Negative salicylate and acetaminophen level. Noted to have REGINA with a creatinine of 5.3. TSH normal. Ammonia normal. Primarily altered mental status and delirium appeared to be related to acute drug intoxication. Supportive management for now. She is on a 96-hour hold for reported suicidal ideation. IV normal saline at 150 cc/h. Insert Giordano catheter to bypass any potential obstruction Obtain renal CT to assess for any hydronephrosis or obstructive process. Urine analysis is not a clean-catch with 21-50 epithelial cells Several nephrotoxic medications noted on her home medication list including diclofenac, ibuprofen, lisinopril which will all be placed on hold for now. EKG showing sinus tachycardia mild ST depressions, check troponin series. An outpatient echocardiogram performed in July 2024 showed a normal LV size with slightly diminished EF of 50% with mild diffuse hypokinesia of the inferolateral and lateral wall segments. Patient is unable to tell me today if she has any history of CAD.denies any chest pain at this present time. Noted to have a leukocytosis, suspect related to dehydration Blood culture taken and pending.CT abdomen ordered. PDMP PDMP Reviewed: Not Reviewed Attestations Medical Necessity Statement*: Greater than 2 midnight stay anticipated Coding Level of Care Code Acute Code for Chg Fwd Diagnoses Polysubstance abuse F19.10 Acute intoxication from hallucinogens F16.929 Suicidal ideation R45.851 Acute kidney injury N17.9
--- NOTE | 2024-12-09 18:03 | PC.NURSE ---
Patients belongings include cell phone, digital advisor, glasses, purse, wallet, change, shoes, multiple items of clothes, makeup and scattered pills. These belongings were placed at [facility].
--- NOTE | 2024-12-09 18:50 | ECG_ITS ---
[facility]09 Pat Name: Marianne Wheeler Department: Room: ICU11 Gender: Female [employer]er: : 1975 Requested By: Ashly Fuller Order Number: [id number] Alvina MD: Justin Lebron M.D. Measurements Intervals [place] Rate: 112 P: 83 CT: 141 QRS: 59 QRSD: 96 T: -36 QT: 353 QTc: 483 Interpretive Statements SINUS TACHYCARDIA ST DEVIATION AND T-WAVE ABNORMALITY, CONSIDER INFERIOR AND LATERAL ISCHEMIA [-0.1+ mV T-WAVE IN II/aVF] Compared to ECG 12/09/2024 13:15:54 Ventricular premature complex(es) now present T-wave abnormality still present Possible ischemia still present Electronically Signed On 12-09-2024 21:01:28 CDT by Justin Lebron M.D. [email or web address]
[2024-12-09 19:11] LABS: Thyroid Stimulating Hormone 1.57 uIU/mL (0.27-4.20)
[2024-12-09 19:23] LABS: Troponin(5th) Baseline 23 ng/L (0-10)
--- NOTE | 2024-12-09 19:48 | PC.NURSE ---
Pt increasingly anxious, crying and pulling at her clothing, saying not to let Aaron have any information about her and she was going to leave and get her children. Explained that she was in the ICU and we needed to take care of her, began crying and saying Do I have hep C? . Unable to console pt, anxiousness continued to escalate. Contacted Dr. Cardona and made aware, new order received for 1x 2 mg ativan IVP.
[2024-12-09] MEDS: diphenhydrAMINE 50 mg/mL SDV 1mL 25 MG IVP (20:52)
[2024-12-09 21:42] LABS: Troponin 5 2HR 23.20 ng/L (0-10); Troponin 5 2HR Delta 0.20 ABS# (0-10)
[2024-12-10] VITALS (38 sets, daily range): BP systolic 83–99; BP diastolic 48–69; PULSE 74–113; RESP 13–24; TEMP 35.5–36.8; O2SAT 93–100
[2024-12-10] MEDS: LORazepam 1 MG/0.5 ML injection 2 MG IVP ×3 (01:04→07:13)
[2024-12-10 01:34] LABS: Hematocrit 36.4 % (36-47); Hemoglobin 11.70 g/dL (11.27-16.99); Mean Corpuscular HGB Conc 32.1 g/dL (30-55); Mean Corpuscular Hemoglobin 29.4 pg (27-33); Mean Corpuscular Volume 91.5 fl (85-98); Nucleated Red Blood Cells % 0 %; Platelet Count 242 10^3/cmm (157-399); Red Blood Count 3.98 10^6/uL (3.85-5.65); White Blood Count 13.07 10^3/uL (3.29-11.43)
[2024-12-10 01:53] LABS: Troponin 5 6HR 20.63 ng/L (0-10)
[2024-12-10 01:55] LABS: Alanine Aminotransferase 84 U/L (0-33); Albumin Level 4.2 g/dL (3.5-5.2); Alkaline Phosphatase 85 U/L (35-105); Blood Urea Nitrogen 54 mg/dL (6-20); Calcium 8.3 mg/dL (8.5-10.5); Carbon Dioxide 13 mmol/L (22-29); Chloride 102 mmol/L (98-107); Creatinine Clr Calc Pharmacy 16.3725; Globulin 2.2 g/dL (1.3-4.6); Glucose 71 mg/dL (65-115); Magnesium 2.1 mg/dL (1.7-2.3); Osmolality Calculated 299 mOsm/kg (285-295); Sodium 138 mmol/L (136-145); Total Protein 6.4 g/dL (6.6-8.7)
[2024-12-10 01:56] LABS: Anion Gap 27.1 (5-19); Aspartate Amino Transferase 223 U/L (0-32); Potassium 4.1 mmol/L (3.5-5.1); Troponin 5 6HR Delta -2.37 ng/L (0-12)
--- NOTE | 2024-12-10 06:51 | PC.NURSE ---
Pt has rested well but when awakened, immediatly becomes agitated and flails around in the bed uncontrollably. PRN ativan administered and pt has calmed but have been unable to safely take pt to CT due to anxiousness and inability to control limbs. Informed Dr. Cardona and ordered to wait on CT until pt able to control withdrawal symptoms. Attempted tele and vital signs and pt immediately has pulled off all monitoring equipment and refused to wear it stating get this fucking shit off of me or I'm fucking leaving . Attempted to spot check and was unsuccessful.
--- NOTE | 2024-12-10 08:00 | CT_ITS ---
WS: [id number] CT ABDOMEN AND PELVIS NONCONTRAST HISTORY: REGINA cr 5 TECHNIQUE: Imaging performed through the abdomen and pelvis. Coronal and sagittal reformats are submitted. All CT scans at [facility] use at least one of these dose optimization techniques: automated exposure control; mA and/or kV adjustment per patient size (includes targeted exams where dose is matched to clinical indication); or iterative reconstruction. DLP: 852.71 mGy.cm COMPARISON: 07/13/2024 Study is compromised by motion artifact. Lower thorax: Emphysematous changes and scarring at the lung bases. Heart size remains normal. No hiatal hernia. Liver: Normal size liver. No mass or bile duct dilatation. Gallbladder: Prior cholecystectomy. Pancreas: Normal size and attenuation. Normal pancreatic duct. No pancreatitis or mass. Spleen: Normal. Adrenal glands: Normal. No mass. Right kidney: Normal size kidney with no mass or hydronephrosis. Left kidney: Normal size kidney with no mass or hydronephrosis. Aorta: Normal abdominal aorta, no aneurysm or atherosclerosis. No free fluid, intraperitoneal air or significant lymphadenopathy. GI tract: Stomach is distended with fluid. No obstruction. There is mild stranding around the appendix but this is probably related to motion artifact. There is air within the appendix and a small appendicolith. Diameter of the appendix is 6 mm. No GI tract obstruction. Abdominal wall: Small umbilical hernia contains fat only. Pelvis: Giordano catheter present in a nondistended urinary bladder. Uterus is present. No adenopathy or free fluid. Osseous structures: L4 anterolisthesis by [address]/CT kidney stone [id number] IMPRESSION: 1. Study is limited by motion artifact. 2. Prior cholecystectomy. 3. No renal obstruction. There is mild perinephric stranding which can be rela iwona to the motion. 4. There is also stranding around the appendix with an intraluminal appendicea l. Periappendiceal stranding is probably related to the motion artifact. 5. No GI tract obstruction.
--- NOTE | 2024-12-10 08:33 | W.PM.NPUH&PS ---
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 times a day; Buspar 15 mg three times a day; Trazodone 50 mg at bedtime; Fluoxetine 40 mg every morning; and Propranolol 10 mg twice daily. Marianne reports experiencing the following symptoms: cry easily, sweating palms, fatigue, bad dreams, mind goes blank, easily annoyed/irritable, loss of sexual desire, nervous feeling, excessive worries/fears, excessive fear of crowds, change in personality, work difficulties, ?multiple medical problems, eating disorder, weight gain/loss, and history of suicidal thoughts/attempt to end life. Marianne continues to meet the criteria for Posttraumatic Stress Disorder, chronic; Major Depressive Disorder, recurrent, severe; Generalized Anxiety Disorder; Stimulant Use Disorder, methamphetamine, in early remission, mild. Meds NPU Home Medications ?Medication ?Instructions ?Recorded ?Confirmed ?Last Taken ?Type fluoxetine 20 mg capsule (Prozac) 20 mg PO DAILY 05/25/24 12/09/24 05/25/24 History ibuprofen 200 mg tablet 200 mg PO Q6H PRN Pain 05/25/24 12/09/24 05/25/24 History lisinopril 20 mg tablet 20 mg PO DAILY 05/25/24 12/09/24 05/25/24 History pantoprazole 20 mg tablet,delayed 20 mg PO DAILY 05/25/24 12/09/24 05/25/24 History release propranolol 20 mg tablet 20 mg PO BID 05/25/24 12/09/24 05/25/24 History tizanidine 4 mg tablet 4 mg PO Q8H PRN Muscle Spasm 05/25/24 12/09/24 Unknown History diclofenac sodium 75 mg 75 mg PO Q12H PRN pain #20 tabs 07/13/24 12/09/24 Unknown Rx tablet,delayed release bumetanide 0.5 mg tablet 0.5 mg PO DAILY PRN swelling 12/09/24 12/09/24 Unknown History isosorbide mononitrate 30 mg 15 mg PO QAM 12/09/24 12/09/24 Unknown History tablet,extended release 24 hr lorazepam 0.5 mg tablet 0.5 mg PO DAILY PRN Anxiety 12/09/24 12/09/24 Unknown History metoprolol succinate 25 mg 25 mg PO DAILY 12/09/24 12/09/24 Unknown History tablet,extended release 24 hr nitroglycerin 0.4 mg sublingual See Rx Instructions .Route .COMPLEX 12/09/24 12/09/24 Unknown History tablet ondansetron 4 mg disintegrating 4 mg PO TID 12/09/24 12/09/24 Unknown History tablet potassium chloride 10 mEq 10 meq PO DAILY PRN swelling 12/09/24 12/09/24 Unknown History tablet,extended release rosuvastatin 20 mg tablet 20 mg PO DAILY 12/09/24 12/09/24 Unknown History tirzepatide (weight loss) 5 mg/0.5 5 mg SUBCUT Q7D 12/09/24 12/09/24 Unknown History mL subcutaneous pen injector (Zepbound) Allergies Allergy/AdvReac Type Severity Reaction Status Date / Time ketamine Allergy ADR-Anxiety Verified 05/25/24 10:33 prochlorperazine (From Allergy ADR-Agitate Verified 05/25/24 10:33 Compazine) d PFSH NPU PFSH: Medical History (Updated 12/10/24 @ 09:09 by Ashly Fuller MD) Nicotine dependence, unspecified, uncomplicated Cannabis dependence, uncomplicated Methamphetamine use disorder, severe Major depressive disorder, recurrent, in partial remission Methamphetamine use disorder, mild, in early remission, abuse Following information retrieved/edited from Behavior Assessment Report completed on 06/13/21: she reports a pattern of methamphetamine use leading to clinically significant impairment or distress, as manifested by recurrent stimulant use resulting in a failure to fulfill major role obligations at work, school, or home; continued stimulant use despite having persistent or recurrent social or interpersonal problems caused or exacerbated by the effects of the stimulant; stimulant use is continued despite knowledge of having a persistent or recurrent physical or psychological problem that is likely to have been caused or exacerbated by the stimulant. Hx MRSA infection Hx of primary hypertension History of anxiety History of depression Hx of heat stroke Migraine Sleep apnea Gastroesophageal reflux History of kidney stones History of vaginal delivery History of fracture Bipolar disorder PTSD (post-traumatic stress disorder) History of methamphetamine abuse Substance abuse Olecranon bursitis, left elbow Surgical History Hx of dilation and curettage Family History Father CAD (coronary artery disease) Other Cancer Dementia Hypertension Major depressive disorder, recurrent, in partial remission Social History Smoking and tobacco/nicotine status: current every day tobacco/nicotine user cigarettes Packs smoked per day: 0.5 Years cigarettes smoked: 30 Quit status (tobacco/nicotine): not considering quitting Second hand smoke exposure: No Alcohol intake: never Substance/Drug Use: former Date of last use: 2 months from pot and 6 months from meth Adopted: No Caregiver/support person: No Lives independently: Yes Household members: significant other and children Housing: Manufactured/Mobile home Marital status: Number of children: 2 Number of grandchildren: 0 Highest education level completed: GED or Equivalent service: No Current occupational status: disabled Current occupation: trying to get disability Pets and animals: Yes Pets & animals: cat(s), dog(s) and farm animals Farm Animals: other Leisure activites: music and other Leisure activities details: watch TV Sexually active: No Do you think of yourself as: Straight/Heterosexual Current gender identity: Female Rach/Orthodoxy: Rastafarian Special rach needs: No Agree to transfusion: Yes Female Reproductive History: Para: 2 Spontaneous abortions: Yes Mental Status Exam MSE Comments: This is an obese white female in hospital gown with poor grooming and adequate eye contact. She was quite disheveled with her hair matted in the back and numerous bergman all over her legs that were bruises of different stages. No abnormal movements except for significant psychomotor agitation. Semicooperative with exam and moderate to extreme distress. Speech was mute almost with barely audible whisper. Mood not described affect irritable, agitated and bizarre. Thought process linear. Thought content: Patient denied suicidal or homicidal ideation, there were no delusions reported but clear bizarre delusions present, she denied any auditory or visual hallucinations but may have been attending to internal stimuli. Attention and concentration were limited and memory was unreliable but none were formally tested. She is alert and oriented times person and place. Insight, judgment and impulse control were impaired. Vitals/I&O/Wt Last Vital Signs Temp 98.9 F 12/09/24 16:36 Pulse 110 H 12/10/24 08:00 Resp 21 H 12/10/24 08:00 BP 125/92 12/09/24 22:00 Pulse Ox 96 12/09/24 16:36 O2 Del Method Room Air 12/09/24 16:56 12/09/24 12/10/24 12/10/24 22:59 06:59 14:59 Intake Total 3018.25 / 3018.25 2120 / 5138.25 Output Total 350 / 350 Balance 3018.25 / 3018.25 1770 / 4788.25 Weight last 48 hrs Weight 81.825 kg Weight 80 kg Weight 85.275 kg Physical Exam Urinary Catheter Management: Giordano Latex: Cath Placed During This Visit: yes Reason for Continuing Indwelling Catheter: Accurate Measurement of Urinary Output in Critically Ill Patients Urinary Catheter Date of Insertion: 12/10/24 Urinary Catheter Time of Insertion: 01:00 Data NPU 12/11/24 03:53 12/11/24 03:53 Micro: Microbiology 12/09/24 14:29 Blood Culture - Preliminary Blood SPECIMEN COLLECTED 12/09/24 14:18 Blood Culture - Preliminary Blood SPECIMEN COLLECTED Microbiology 12/09/24 14:29 Blood Blood Culture - Preliminary SPECIMEN COLLECTED 12/09/24 14:18 Blood Blood Culture - Preliminary SPECIMEN COLLECTED A&P Assessment and plan 1. Post-traumatic stress disorder, chronic: 2. Major depressive disorder, recurrent, severe w/o psychotic behavior: 3. Generalized anxiety disorder: 4. Methamphetamine use disorder, severe: 5. Cannabis dependence, uncomplicated: 6. Substance abuse: Plan: This is a 49-year-old white female with a long history of mental health and addiction issues who presents positive for amphetamines, cannabis and benzodiazepines though it is unclear whether the benzodiazepines were part of her medications when she came to the hospital. Patient appears to be having psychosis in relation to her amphetamine and cannabis use and was not a dependable historian. 1. Continue current medication. Consider an antipsychotic. 2. Agree with hold and transferred to NPU when medically stable. 3. Obtain collateral information. 4. Observe against the backdrop of the 96-hour hold. 5. Encourage sober living treatment after discharge at the highest level care to which she is willing to commit. PDMP PDMP Reviewed: Not Reviewed Attestations NPU Medical Necessity Statement*: N/A. However patient in need of acute psychiatric care and will be transferred once she is medically stable. Coding Level of Care Code Acute Code for [facility] Fwd Diagnoses Post-traumatic stress disorder, chronic F43.12 Major depressive disorder, recurrent, severe w/o psychotic behavior F33.2 Generalized anxiety disorder F41.1 Methamphetamine use disorder, severe F15.20 Cannabis dependence, uncomplicated F12.20 Substance abuse F19.10
--- NOTE | 2024-12-10 09:13 | XR_ITS ---
WS: [id number] XR chest 1V portable [id number] REASON FOR EXAM: assess for infiltrates FINDINGS: There is a vague patchy lung opacity in the periphery of the right midlung field. Nonspecific, unknown chronicity. Moderate tortuosity and ectasia of the ascending and descending thoracic aorta. Cardiomegaly. Calcified granulomatous disease bilaterally. Moderate to significant degenerative spondylosis in the thoracic spine. XR/XR chest 1V portable [id number] IMPRESSION: Vague opacities in the right lung of unknown chronicity and significance.
--- NOTE | 2024-12-10 10:53 | PC.NURSE ---
recieved awake and agitated this am pulling all line off ativan given and vital check done one to one sitter at bedside . after nap done awaken and now agreed to go to ct scan remains unsteady on feet but up in wheelchair and back more cooperative at this time and snack given
--- NOTE | 2024-12-10 12:04 | PC.NURSE ---
multiple bruises over entire body noted while in ct scan , became more agitated upon return to [facility] ,, over activity and noise
[2024-12-10] MEDS: dexmedeTOMIDine 0.9 % NaCL 400 MCG/100 ML PREMIX 6.14 MCG IV (13:43)
--- NOTE | 2024-12-10 15:38 | PC.NURSE ---
continues to have severe agitation and anger outbursts, started on precedex gtt placed on monitor while sedated
--- NOTE | 2024-12-10 17:01 | PC.NURSE ---
allowed to call both daughters from icu cell phone , she does not want any staff talking to her daughters or releasing information
--- NOTE | 2024-12-10 17:09 | P.PN_ITS ---
Subjective 2 Subjective: Patient is more alert and awake today, able to have a conversation, however becomes easily irritable and agitated while conversing. States she would like to talk to her daughter before talking to anybody from the medical field. Patient has a very hoarse voice, states this has been the case since March of this year when she was diagnosed with a thyroid nodule. Medications: Reviewed: Yes Vitals/I&O/Wt Last Vital Signs Temp 98.2 F 12/10/24 16:17 Pulse 83 12/10/24 16:53 Resp 24 H 12/10/24 16:17 BP 89/50 12/10/24 16:00 Pulse Ox 98 12/10/24 16:17 O2 Del Method Room Air 12/10/24 16:17 12/10/24 12/10/24 12/10/24 06:59 14:59 22:59 Intake Total 2120 / 5138.25 306.343 / 306.343 18.405 / 324.748 Output Total 350 / 350 Balance 1770 / 4788.25 306.343 / 306.343 18.405 / 324.748 Weight last 48 hrs Weight 81.825 kg Weight 80 kg Weight 85.275 kg Physical Exam 2 Narrative: General: No acute distress, AO x1 HEENT: PERRLA, pupils bilaterally equal and reactive, pallors not present Chest: Normal vesicular breath sounds, no added sounds, equal good air entry bilaterally CVS: S1-S2 regular, no murmurs, no tachycardia, no gallops, no rubs Abdomen: Soft, nontender, no organomegaly, bowel sounds present Neuro: No focal deficits, moves all extremities Urinary Catheter Management: Giordano Latex: Cath Placed During This Visit: yes Reason for Continuing Indwelling Catheter: Accurate Measurement of Urinary Output in Critically Ill Patients Urinary Catheter Date of Insertion: 12/10/24 Urinary Catheter Time of Insertion: 01:00 Data 12/10/24 01:17 12/10/24 01:17 Micro: Microbiology 12/09/24 14:29 Blood Culture - Preliminary Blood NEGATIVE TO DATE 12/09/24 14:18 Blood Culture - Preliminary Blood NEGATIVE TO DATE A&P Assessment and plan 1. Polysubstance abuse: 2. Acute intoxication from hallucinogens: 3. Suicidal ideation: 4. Acute kidney injury: Plan: 49-year-old lady reportedly homeless, brought in today via EMS and law enforcement after being found to have bizarre behavior noticed by a bystander. She is unable to provide any meaningful history except states that she took a handful of pills. Admits to amphetamine use Urine drug screen today is positive for amphetamines, benzodiazepines and marijuana. Alcohol is negative. Negative salicylate and acetaminophen level. Noted to have REGINA with a creatinine of 5.3. TSH normal. Ammonia normal. Primarily altered mental status and delirium appeared to be related to acute drug intoxication. Supportive management for now. She is on a 96-hour hold for reported suicidal ideation. IV normal saline at 150 cc/h. Insert Giordano catheter to bypass any potential obstruction Obtain renal CT to assess for any hydronephrosis or obstructive process. Urine analysis is not a clean-catch with 21-50 epithelial cells Several nephrotoxic medications noted on her home medication list including diclofenac, ibuprofen, lisinopril which will all be placed on hold for now. EKG showing sinus tachycardia mild ST depressions, check troponin series. An outpatient echocardiogram performed in July 2024 showed a normal LV size with slightly diminished EF of 50% with mild diffuse hypokinesia of the inferolateral and lateral wall segments. Patient is unable to tell me today if she has any history of CAD.denies any chest pain at this present time. Noted to have a leukocytosis, suspect related to dehydration Blood culture taken and pending.CT abdomen ordered. December 10, 2024 Patient is alert and awake today, able to have a conversation. No longer hallucinating. However still irritable, cries multiple times in conversation and states not yet ready to talk about what happened. States she would like to talk to her daughter before talking to anybody in the medical field about the events of yesterday. States she remembers the events clearly but does not want to talk about them. Creatinine is improving today to 4.3. Patient did need to start Precedex due to significant anxiety particularly around a CODE BLUE and multiple people rushing into the room right next to her.AST 223, ALT 84. Will check hep C PCR with a.m. labs. She may need outpatient treatment for the same. Voice is noted to be hoarse, states this is unchanged from March 2024. States she follows with Dr. Kim and has been noted to have a thyroid nodule.Continue IVFluids in view of REGINA. leukocytosis is improving. Vague patchy opacity in the right midlung periphery, unknown significance and chronicity. She remains afebrile today. Will start oral Augmentin in case this represents a developing pneumonia. CT of the abdomen and pelvis obtained, noted to have mild stranding about the appendix. She denies any abdominal pain. Periappendiceal stranding is likely related to motion artifact per radiology interpretation. There is air within the appendix with a small appendicolith. PDMP PDMP Reviewed: Not Reviewed Attestations 2 Medical Necessity Statement*: continue IVF in view of REGINA, monitor urine output. Needs precdex today. Continue 96 hr hold. Coding Level of Care Code Acute Code for [facility] Fwd Diagnoses Polysubstance abuse F19.10 Acute intoxication from hallucinogens F16.929 Suicidal ideation R45.851 Acute kidney injury N17.9
[2024-12-11] VITALS (38 sets, daily range): BP systolic 86–152; BP diastolic 56–97; PULSE 72–108; RESP 13–21; TEMP 36.6–37.7; O2SAT 89–98
--- NOTE | 2024-12-11 00:15 | PC.NURSE ---
LR Bolus Dr. Cardona notified of patient's blood pressure remaining soft. Order received for 1 L lactated Ringer bolus IV once.
[2024-12-11 04:11] LABS: Hematocrit 27.9 % (36-47); Hemoglobin 9.30 g/dL (11.27-16.99); Mean Corpuscular HGB Conc 33.3 g/dL (30-55); Mean Corpuscular Hemoglobin 30.1 pg (27-33); Mean Corpuscular Volume 90.3 fl (85-98); Nucleated Red Blood Cells % 0 %; Platelet Count 208 10^3/cmm (157-399); Red Blood Count 3.09 10^6/uL (3.85-5.65); White Blood Count 6.54 10^3/uL (3.29-11.43)
[2024-12-11 04:44] LABS: Alanine Aminotransferase 67 U/L (0-33); Albumin Level 3.0 g/dL (3.5-5.2); Alkaline Phosphatase 63 U/L (35-105); Anion Gap 15.5 (5-19); Aspartate Amino Transferase 110 U/L (0-32); Blood Urea Nitrogen 40 mg/dL (6-20); Calcium 7.7 mg/dL (8.5-10.5); Carbon Dioxide 19 mmol/L (22-29); Chloride 108 mmol/L (98-107); Creatinine Clr Calc Pharmacy 44.4966; Globulin 1.9 g/dL (1.3-4.6); Glucose 90 mg/dL (65-115); Osmolality Calculated 297 mOsm/kg (285-295); Potassium 3.5 mmol/L (3.5-5.1); Sodium 139 mmol/L (136-145); Total Protein 4.9 g/dL (6.6-8.7)
[2024-12-11 04:55] LABS: Hepatitis A Antibody IgM Non-Reactive (Nonreactive); Hepatitis B Surface Antigen Non-Reactive (Nonreactive)
[2024-12-11] MEDS: LORazepam 1 MG/0.5 ML injection 2 MG IVP (05:45)
--- NOTE | 2024-12-11 09:39 | PC.NURSE ---
Patient suddenly became very upset. States that we told her she is not allowed to call anyone and that we cannot do that to her. NUrse explained that she is allowed to make calls and speak to family. It was her that told us that she doesn't want us to give information out to anyone. Nurse explained that she is free to do so. Patient would like to call her family, but doesn't know her phone number. Nurse obtained the patient's personal cell phone and was able to look up a number karlene someone named Gemini Hernandez, and her investment officer deric melton. Patient tried to call elena. but calls go to voicemails which are not set up. Patient became more upset by this. and continues to be tearful. Patient has very knotted hair and is attempting to brush it. Has beads in it which are difficult to remove. NUrse offerd to get her a conditioner cap to soften her hair and make removal of the beads easier. Patient responded to this offer by saying you are treating my like a fucking drug addict. I'll just lay my knotted hair with the fucking beads
--- NOTE | 2024-12-11 15:11 | P.NPUPN_ITS ---
Subjective NPU 2 Subjective: Patient presented today reporting that she is tired. She was isolative per staff reports and direct observation. She was limited in her communication and did not express an interest in initiating medication. She seemed to be confused about reality per staff reports and direct communication. She denied any side effects to the medication. Mental Status Exam 2 MSE Comments: This is an obese white female in hospital scrubs with poor grooming and adequate eye contact. She was quite disheveled with her hair matted in the back and numerous bergman all over her legs that were bruises of different stages. No abnormal movements except for significant psychomotor retardation. Semicooperative with exam and moderate to extreme distress. Speech was mute almost with barely audible whisper. Mood not described affect irritable, agitated and bizarre. Thought process linear. Thought content: Patient denied suicidal or homicidal ideation, there were no delusions reported but clear bizarre delusions present, she denied any auditory or visual hallucinations but may have been attending to internal stimuli. Attention and concentration were limited and memory was unreliable but none were formally tested. She is alert and oriented times person and place. Insight, judgment and impulse control were impaired. Vitals/I&O/Wt Last Vital Signs Temp 98 F 12/11/24 14:00 Pulse 98 12/11/24 14:00 Resp 16 12/11/24 14:00 BP 152/81 12/11/24 14:00 Pulse Ox 98 12/11/24 14:00 O2 Del Method Room Air 12/11/24 14:00 12/11/24 12/11/24 12/11/24 06:59 14:59 22:59 Intake Total 2000.059 / 4364.008 1000 / 1000 Output Total 600 / 1300 300 / 300 Balance 1401.059 / 3064.008 700 / 700 Weight last 48 hrs Weight 87.5 kg Weight 81.825 kg Weight 80 kg Physical Exam 2 Urinary Catheter Management: Giordano Latex: Cath Placed During This Visit: yes Reason for Continuing Indwelling Catheter: Accurate Measurement of Urinary Output in Critically Ill Patients Urinary Catheter Date of Insertion: 12/10/24 Urinary Catheter Time of Insertion: 01:00 Data NPU 12/11/24 03:53 12/11/24 03:53 Micro: Microbiology 12/09/24 14:29 Blood Culture - Preliminary Blood NEGATIVE TO DATE 12/09/24 14:18 Blood Culture - Preliminary Blood NEGATIVE TO DATE Microbiology 12/09/24 14:29 Blood Blood Culture - Preliminary NEGATIVE TO DATE 12/09/24 14:18 Blood Blood Culture - Preliminary NEGATIVE TO DATE A&P Assessment and plan 1. Post-traumatic stress disorder, chronic: 2. Major depressive disorder, recurrent, severe w/o psychotic behavior: 3. Generalized anxiety disorder: 4. Methamphetamine use disorder, severe: 5. Cannabis dependence, uncomplicated: 6. Substance abuse: Plan: This is a 49-year-old white female with a long history of mental health and addiction issues who presents positive for amphetamines, cannabis and benzodiazepines though it is unclear whether the benzodiazepines were part of her medications when she came to the hospital. Patient appears to be having psychosis in relation to her amphetamine and cannabis use and was not a dependable historian. 1. Continue current medication. Consider an antipsychotic. 2. Transferred to MPU. 3. Obtain collateral information. 4. Observe against the backdrop of the 96-hour hold. File for 21-day hold. 5. Encourage sober living treatment after discharge at the highest level care to which she is willing to commit. 6. Continue every 15 minute checks for safety. 7. Encourage individual, group and milieu therapy. PDMP PDMP Reviewed: Not Reviewed Involuntary Hold Information 2 Hold Status: Legal Status: 96 Hour Hold Date/Time Hold Expires: 12/15/24 @1352 Attestations NPU 2 Medical Necessity Statement*: Inpatient hospitalization is medically necessary and the clinically appropriate intervention at this time. We will monitor/initiate medications and make changes as indicated. She will be in the hospital for over 2 midnights. Likely length of stay 7 to 10 days. Coding Level of Care Code Acute Code for [facility] Fwd Diagnoses Post-traumatic stress disorder, chronic F43.12 Major depressive disorder, recurrent, severe w/o psychotic behavior F33.2 Generalized anxiety disorder F41.1 Methamphetamine use disorder, severe F15.20 Cannabis dependence, uncomplicated F12.20 Substance abuse F19.10
--- NOTE | 2024-12-11 17:54 | P.PN_ITS ---
Subjective 2 Subjective: cr improving, off precedex since overnight, crying when seen, still does not wish to talk Medications: Reviewed: Yes Vitals/I&O/Wt Last Vital Signs Temp 98 F 12/11/24 14:00 Pulse 98 12/11/24 14:00 Resp 16 12/11/24 14:00 BP 152/81 12/11/24 14:00 Pulse Ox 98 12/11/24 14:00 O2 Del Method Room Air 12/11/24 14:00 12/11/24 12/11/24 12/11/24 06:59 14:59 22:59 Intake Total 2001.059 / 4364.008 1000 / 1000 Output Total 600 / 1300 300 / 300 Balance 1401.059 / 3064.008 700 / 700 Weight last 48 hrs Weight 87.5 kg Weight 81.825 kg Physical Exam 2 Narrative: General: No acute distress, AO x3 HEENT: PERRLA, pupils bilaterally equal and reactive, pallors not present Chest: Normal vesicular breath sounds, no added sounds, equal good air entry bilaterally CVS: S1-S2 regular, no murmurs, no tachycardia, no gallops, no rubs Abdomen: Soft, nontender, no organomegaly, bowel sounds present Neuro: No focal deficits, power 5/5 all extremities Urinary Catheter Management: Wells Latex: Cath Placed During This Visit: yes Reason for Continuing Indwelling Catheter: Accurate Measurement of Urinary Output in Critically Ill Patients Urinary Catheter Date of Insertion: 12/10/24 Urinary Catheter Time of Insertion: 01:00 Data 12/11/24 03:53 12/11/24 03:53 Micro: Microbiology 12/09/24 14:29 Blood Culture - Preliminary Blood NEGATIVE TO DATE 12/09/24 14:18 Blood Culture - Preliminary Blood NEGATIVE TO DATE A&P Assessment and plan 1. Polysubstance abuse: 2. Acute intoxication from hallucinogens: 3. Suicidal ideation: 4. Acute kidney injury: Plan: 49-year-old lady reportedly homeless, brought in today via EMS and law enforcement after being found to have bizarre behavior noticed by a bystander. She is unable to provide any meaningful history except states that she took a handful of pills. Admits to amphetamine use Urine drug screen today is positive for amphetamines, benzodiazepines and marijuana. Alcohol is negative. Negative salicylate and acetaminophen level. Noted to have REGINA with a creatinine of 5.3. TSH normal. Ammonia normal. Primarily altered mental status and delirium appeared to be related to acute drug intoxication. Supportive management for now. She is on a 96-hour hold for reported suicidal ideation. IV normal saline at 150 cc/h. Insert Wells catheter to bypass any potential obstruction Obtain renal CT to assess for any hydronephrosis or obstructive process. Urine analysis is not a clean-catch with 21-50 epithelial cells Several nephrotoxic medications noted on her home medication list including diclofenac, ibuprofen, lisinopril which will all be placed on hold for now. EKG showing sinus tachycardia mild ST depressions, check troponin series. An outpatient echocardiogram performed in July 2024 showed a normal LV size with slightly diminished EF of 50% with mild diffuse hypokinesia of the inferolateral and lateral wall segments. Patient is unable to tell me today if she has any history of CAD.denies any chest pain at this present time. Noted to have a leukocytosis, suspect related to dehydration Blood culture taken and pending.CT abdomen ordered. December 10, 2024 Patient is alert and awake today, able to have a conversation. No longer hallucinating. However still irritable, cries multiple times in conversation and states not yet ready to talk about what happened. States she would like to talk to her daughter before talking to anybody in the medical field about the events of yesterday. States she remembers the events clearly but does not want to talk about them. Creatinine is improving today to 4.3. Patient did need to start Precedex due to significant anxiety particularly around a CODE BLUE and multiple people rushing into the room right next to her.AST 223, ALT 84. Will check hep C PCR with a.m. labs. She may need outpatient treatment for the same. Voice is noted to be hoarse, states this is unchanged from March 2024. States she follows with Dr. Kim and has been noted to have a thyroid nodule.Continue IVFluids in view of REGINA. leukocytosis is improving. Vague patchy opacity in the right midlung periphery, unknown significance and chronicity. She remains afebrile today. Will start oral Augmentin in case this represents a developing pneumonia. CT of the abdomen and pelvis obtained, noted to have mild stranding about the appendix. She denies any abdominal pain. Periappendiceal stranding is likely related to motion artifact per radiology interpretation. There is air within the appendix with a small appendicolith. 12/11/2024 Awake and alert. Cr improving. D/c wells and IV fluids. Stable for transfer from med/surg to NPU today for continued treatment PDMP PDMP Reviewed: Not Reviewed Attestations 2 Medical Necessity Statement*: transfer to NPU Coding Level of Care Code Acute Code for [facility]g Fwd Diagnoses Polysubstance abuse F19.10 Acute intoxication from hallucinogens F16.929 Suicidal ideation R45.851 Acute kidney injury N17.9
[2024-12-12 06:00] VITALS: BP 125/81; PULSE 80; RESP 16; TEMP 36.7; O2SAT 96
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
[2024-12-12 09:36] LABS: Hematocrit 31.4 % (36-47); Hemoglobin 10.30 g/dL (11.27-16.99); Mean Corpuscular HGB Conc 32.8 g/dL (30-55); Mean Corpuscular Hemoglobin 29.5 pg (27-33); Mean Corpuscular Volume 90.0 fl (85-98); Nucleated Red Blood Cells % 0 %; Platelet Count 258 10^3/cmm (157-399); Red Blood Count 3.49 10^6/uL (3.85-5.65); White Blood Count 6.49 10^3/uL (3.29-11.43)
[2024-12-12 10:05] LABS: Alanine Aminotransferase 69 U/L (0-33); Albumin Level 3.3 g/dL (3.5-5.2); Alkaline Phosphatase 71 U/L (35-105); Anion Gap 15.3 (5-19); Aspartate Amino Transferase 74 U/L (0-32); Blood Urea Nitrogen 12 mg/dL (6-20); Calcium 8.4 mg/dL (8.5-10.5); Carbon Dioxide 22 mmol/L (22-29); Chloride 108 mmol/L (98-107); Creatinine Clr Calc Pharmacy 122.7668; Globulin 2.3 g/dL (1.3-4.6); Glucose 88 mg/dL (65-115); Osmolality Calculated 293 mOsm/kg (285-295); Potassium 3.3 mmol/L (3.5-5.1); Sodium 142 mmol/L (136-145); Total Protein 5.6 g/dL (6.6-8.7)
[2024-12-12 14:00] VITALS: BP 145/93; PULSE 95; RESP 19; TEMP 36.7; O2SAT 96
[2024-12-12 16:50] LABS: HEP C RNA Viral Load Quant <1.18 NOT DETECTED Log IU/mL (NOT DETECTED); HEP C RNA Viral Load Quant <15 NOT DETECTED IU/mL (NOT DETECTED)
[2024-12-12 21:34] VITALS: BP 134/94; PULSE 104; RESP 18; TEMP 36.8; O2SAT 96
[2024-12-12 21:40] VITALS: BMI 32.1
--- NOTE | 2024-12-13 00:14 | PC.NURSE ---
Upset with various subject matter, nsg attempting to console, most of c/of trying to get ahold of family & PO office , to which nsg will assist as able & help her find phone numbers; wants extensions removed from her hair. Upon inspection, these will require certain tools to remove, et hair matting is extreme. Advised patient that nsg will work toward a plan of approach together with her, which seems to ease her upset significantly. Supervisory nsg brought into conversation to navigate possible solutions for her, et it appears several of the extensions have been removed in previous attempt to help her. She is cooperative et asks for PRN assists. Nsg continues to assist.
[2024-12-13 06:00] VITALS: BP 154/98; PULSE 101; RESP 17; TEMP 36.9; O2SAT 98
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
[2024-12-13 14:00] VITALS: BP 124/81; PULSE 108; RESP 16; TEMP 36.8; O2SAT 96
[2024-12-13 22:00] VITALS: BP 117/80; PULSE 95; RESP 17; TEMP 37.2; O2SAT 92
[2024-12-14 06:00] VITALS: BP 138/91; PULSE 94; RESP 20; TEMP 36.6; O2SAT 97
[2024-12-14 09:54] LABS: Hematocrit 34.7 % (36-47); Hemoglobin 11.60 g/dL (11.27-16.99); Mean Corpuscular HGB Conc 33.4 g/dL (30-55); Mean Corpuscular Hemoglobin 29.5 pg (27-33); Mean Corpuscular Volume 88.3 fl (85-98); Nucleated Red Blood Cells % 0 %; Platelet Count 300 10^3/cmm (157-399); Red Blood Count 3.93 10^6/uL (3.85-5.65); White Blood Count 7.54 10^3/uL (3.29-11.43)
[2024-12-14 10:15] LABS: Alanine Aminotransferase 44 U/L (0-33); Albumin Level 3.5 g/dL (3.5-5.2); Alkaline Phosphatase 62 U/L (35-105); Anion Gap 13.1 (5-19); Aspartate Amino Transferase 30 U/L (0-32); Blood Urea Nitrogen 11 mg/dL (6-20); Calcium 8.6 mg/dL (8.5-10.5); Carbon Dioxide 26 mmol/L (22-29); Chloride 101 mmol/L (98-107); Creatinine Clr Calc Pharmacy 120.8277; Globulin 2.4 g/dL (1.3-4.6); Glucose 114 mg/dL (65-115); Osmolality Calculated 284 mOsm/kg (285-295); Potassium 3.1 mmol/L (3.5-5.1); Sodium 137 mmol/L (136-145); Total Protein 5.9 g/dL (6.6-8.7)
[2024-12-14 13:51] VITALS: BP 136/92; PULSE 106; RESP 16; TEMP 36.9; O2SAT 98
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
--- NOTE | 2024-12-14 14:45 | PC.NURSE ---
Pt. showed signee a rash on her buttock, thighs, and behind her knees. Dr. Lerner informed.
--- NOTE | 2024-12-14 17:55 | PC.NURSE ---
Medical came to NPU and saw pt.'s d/t rash on BLE. stated she would put in orders for the rash.
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
[2024-12-14 20:47] VITALS: BP 143/84; PULSE 102; RESP 17; TEMP 36.4; O2SAT 97
[2024-12-15 06:00] VITALS: BP 122/69; PULSE 97; RESP 17; TEMP 36.8; O2SAT 95
[2024-12-15] MEDS: sulfamethoxazole-trimeth DS 160-800 mg Tablet 1 TAB PO (08:18)
--- NOTE | 2024-12-15 11:52 | W.PM.NPUDCS ---
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 the following diagnoses: PTSD, Chronic; Major Depressive Disorder, recurrent, severe, without psychotic features; Generalized Anxiety Disorder; other stimulant dependence, methamphetamine, in early remission. She was prescribed Abilify 10 mg daily; Gabapentin 300 mg three times a day; Buspar 15 mg three times a day; Trazodone 50 mg at bedtime; Fluoxetine 40 mg every morning; and Propranolol 10 mg twice daily. Marianne reports experiencing the following symptoms: cry easily, sweating palms, fatigue, bad dreams, mind goes blank, easily annoyed/irritable, loss of sexual desire, nervous feeling, excessive worries/fears, excessive fear of crowds, change in personality, work difficulties, ?multiple medical problems, eating disorder, weight gain/loss, and history of suicidal thoughts/attempt to end life. Marianne continues to meet the criteria for Posttraumatic Stress Disorder, chronic; Major Depressive Disorder, recurrent, severe; Generalized Anxiety Disorder; Stimulant Use Disorder, methamphetamine, in early remission, mild. Hospital Course Hospital Course The patient presented with acute renal failure secondary from methamphetamine use. Her renal failure resolved with help from the hospitalist. The patient also appeared to have of a poison sumac infection that required treatment with steroids. She was also placed on 2 antibiotics to be taken for the next 10 days beyond the time of discharge. The patient was placed on Prozac and titrated up to a dose of 40 mg daily to target depression without any noted side effects. Additionally, there was a general medical evaluation which was also within normal limits and revealed no new acute processes.? At the time of discharge, lethality was denied and psychosis was resolving.? Mood and anxiety were well managed.? The patient endorsed a plan to avoid all drugs of abuse and follow up with the aftercare recommendations of the treatment team.? The patient was evaluated and deemed to be absent credible lethality and had achieved the maximum benefit from an inpatient hospitalization, and so was discharged. ? Involuntary Hold Information Hold Status: Legal Status: 96 Hour Hold Date/Time Hold Expires: 12/15/24 @1352 Mental Status Exam MSE Comments: This is an obese white female in hospital scrubs with improved grooming and fair eye contact on discharge. No abnormal involuntary motor movements except for significant psychomotor retardation. She was cooperative with exam and in no acute distress. Speech was productive and normal in volume and diminished in rate today. Mood described as better. Her affect was euthymic on discharge. Thought process was linear and logical today. Thought content: Patient denied suicidal or homicidal ideation. There was no evidence of delusional thinking. She denied any auditory or visual hallucinations and did not appear to be responding to internal stimuli. Attention and concentration were limited and memory was unreliable but none were formally tested. She is alert and oriented times person, and place and time. Insight, judgment were fair and impulse control was fair on discharge. Physical Exam Urinary Catheter Management: Giordano Latex: Cath Placed During This Visit: yes Reason for Continuing Indwelling Catheter: Accurate Measurement of Urinary Output in Critically Ill Patients Urinary Catheter Date of Insertion: 12/10/24 Urinary Catheter Time of Insertion: 01:00 Discharge Data Studies Completed and Pending: Completed Studies During Hospitalization Category Date Time Status CT kidney stone 7 [id number] Routine Cat Scan 12/10/24 08:00 Completed CXRP [XR chest 1V portable [id number]] R outine Exams 12/10/24 09:13 Completed Radiology Impressions Abdomen/Pelvis CT 12/10/24 08:00 IMPRESSION: 1. Study is limited by motion artifact. 2. Prior cholecystectomy. 3. No renal obstruction. There is mild perinephric stranding which can be related to the motion. 4. There is also stranding around the appendix with an intraluminal appendiceal. Periappendiceal stranding is probably related to the motion artifact. 5. No GI tract obstruction. Chest X-Ray 12/10/24 09:13 IMPRESSION: Vague opacities in the right lung of unknown chronicity and significance. Laboratory Results WBC 7.54 10^3/uL (3.2 9-11.43) 12/14/24 09:44 RBC 3.93 10^6/uL (3.8 5-5.65) 12/14/24 09:44 Hgb 11.60 g/dL (11.27 -16.99) 12/14/24 09:44 Hct 34.7 % (36-47) L 12/14/24 09:44 MCV 88.3 fl (85-98) 12/14/24 09:44 MCH 29.5 pg (27-33) 12/14/24 09:44 MCHC 33.4 g/dL (30-55) 12/14/24 09:44 RDW 15.3 % (12.1-15.1 ) H 12/14/24 09:44 Plt Count 300 10^3/cmm (157 -399) 12/14/24 09:44 MPV 9.3 fL (7.4-10.4) 12/14/24 09:44 Neut % (Auto) 72.3 % 12/14/24 09:44 Lymph % (Auto) 12.7 % 12/14/24 09:44 Forrest % (Auto) 8.1 % 12/14/24 09:44 Eos % (Auto) 6.4 % 12/14/24 09:44 Baso % (Auto) 0.1 % 12/14/24 09:44 Neut # (Auto) 5.45 10^3/uL (1.8 -7.7) 12/14/24 09:44 Lymph # (Auto) 1.0 10^3/uL (0.8- 4.8) 12/14/24 09:44 Forrest # (Auto) 0.6 10^3/uL (0.2- 0.9) 12/14/24 09:44 Eos # (Auto) 0.5 10^3/uL (0.0- 0.8) 12/14/24 09:44 Baso # (Auto) 0.0 10^3/uL (0.0- 0.1) 12/14/24 09:44 Nucleated RBC % (a uto) 0 % 12/14/24 09:44 Nucleated RBCs # 0.0 /100WBC 12/14/24 09:44 Sodium 137 mmol/L (136-1 45) 12/14/24 09:44 Potassium 3.1 mmol/L (3.5-5 .1) L 12/14/24 09:44 Chloride 101 mmol/L (98-10 7) 12/14/24 09:44 Carbon Dioxide 26 mmol/L (22-29) 12/14/24 09:44 Anion Gap 13.1 (5-19) 12/14/24 09:44 BUN 11 mg/dL (6-20) 12/14/24 09:44 Creatinine 0.6 mg/dL (0.5-0. 9) 12/14/24 09:44 GFR Calculation 106.7 mL/min (90- 130) 12/14/24 09:44 Glucose 114 mg/dL (65-115 ) 12/14/24 09:44 POC Glucose 80 mg/dL (70-110) 12/10/24 20:37 Calculated Osmolal ity 284 mOsm/kg (285- 295) L 12/14/24 09:44 Calcium 8.6 mg/dL (8.5-10 .5) 12/14/24 09:44 Magnesium 2.1 mg/dL (1.7-2. 3) 12/10/24 01:17 Total Bilirubin 0.5 mg/dL (0.15-1 .2) 12/14/24 09:44 AST 30 U/L (0-32) 12/14/24 09:44 ALT 44 U/L (0-33) H 12/14/24 09:44 Alkaline Phosphata se 62 U/L (35-105) 12/14/24 09:44 Ammonia 49 umol/L (11-51) 12/09/24 14:18 Troponin T Baselin e 23 ng/L (0-10) H 12/09/24 18:50 Troponin T 120 Min [place] 23.20 ng/L (0-10) H 12/09/24 20:50 Delta Troponin T 0.20 ABS# (0-10) 12/09/24 20:50 Troponin T Hi Sens 6Hr 20.63 ng/L (0-10) H 12/10/24 01:17 Troponin T Hi Sens 6Hr Delta -2.37 ng/L (0-12) L 12/10/24 01:17 Total Protein 5.9 g/dL (6.6-8.7 ) L 12/14/24 09:44 Albumin 3.5 g/dL (3.5-5.2 ) 12/14/24 09:44 Globulin 2.4 g/dL (1.3-4.6 ) 12/14/24 09:44 TSH 1.57 uIU/mL (0.27 -4.20) 12/09/24 13:20 Urine Color Dark yellow (Yel low) A 12/09/24 13:20 Urine Appearance Turbid (CLEAR) A 12/09/24 13:20 Urine pH 5.0 (5-7) 12/09/24 13:20 Ur Specific Gravit y 1.020 (1.005-1.0 30) 12/09/24 13:20 Urine Protein 2+ (Negative) A 12/09/24 13:20 Urine Glucose (UA) Negative (Normal ) 12/09/24 13:20 Urine Ketones 1+ (Negative) H 12/09/24 13:20 Urine Blood 3+ (Negative) A 12/09/24 13:20 Urine Nitrate Negative (Negati ve) 12/09/24 13:20 Urine Bilirubin Negative (Negati ve) 12/09/24 13:20 Urine Urobilinogen 1.0 mg/dL (Negati ve) 12/09/24 13:20 Ur Leukocyte Elysia ase Trace (Negative) A 12/09/24 13:20 Urine RBC 3-5 /hpf (0-2) 12/09/24 13:20 Urine WBC 0-5 /hpf (0-5) 12/09/24 13:20 Ur Squamous Epith Cells 21-50 /hpf (0-5) H 12/09/24 13:20 Calcium Oxalate Cr ystal 0-4 /hpf H 12/09/24 13:20 Amorphous Sediment Not Reportable 12/09/24 13:20 Urine Bacteria None seen /hpf (N ONE) 12/09/24 13:20 Hyaline Casts 75.28 /lpf 12/09/24 13:20 Salicylates < 0.3 mg/dL (3-10 ) L 12/09/24 14:18 Urine Opiates Scre en Negative ng/mL (N egative) 12/09/24 13:20 Acetaminophen < 5.0 ug/mL (10-3 0) L 12/09/24 14:18 Ur Barbiturates Sc reen Negative ng/mL (N egative) 12/09/24 13:20 Ur Phencyclidine S crn Negative ng/mL (N egative) 12/09/24 13:20 Ur Amphetamines Sc reen Positive ng/mL (N egative) H 12/09/24 13:20 U Benzodiazepines Scrn Positive ng/mL (N egative) H 12/09/24 13:20 Urine Cocaine Scre en Negative ng/mL (N egative) 12/09/24 13:20 U Marijuana (THC) Screen Positive ng/mL (N egative) H 12/09/24 13:20 Ethyl Alcohol < 10 mg/dL (0-10) 12/09/24 14:18 Hepatitis A IgM Ab Non-reactive (No nreactive) 12/11/24 03:53 Hep Bs Antigen Non-reactive (No nreactive) 12/11/24 03:53 Hep Bs Antibody < 3.5 (11.5-1000 ) L 12/11/24 03:53 Hep B Core Total A b Non-reactive (No nreactive) 12/11/24 03:53 Hepatitis C Antibo dy Reactive (Nonrea ctive) H 12/11/24 03:53 HCV RNA (PCR) IUs/ ml <1.18 not detecte d Log IU/mL (NOT D ETECTED) 12/11/24 05:44 HCV RNA (PCR) IU l og10 <15 not detected IU/mL (NOT DETECTE D) 12/11/24 05:44 Vitals: Last Vital Signs Temp 98.2 F 12/15/24 06:00 Pulse 97 12/15/24 06:00 Resp 17 12/15/24 06:00 BP 122/69 12/15/24 06:00 Pulse Ox 95 12/15/24 06:00 O2 Del Method Room Air 12/15/24 06:00 Discharge Plan Discharge Patient Disposition: Home Condition: Stable Prescriptions: New prednisone 20 mg Tablet 40 mg PO DAILY Qty: 18 0RF Rx Instructions: Take 2 tablets daily for 9 days then STOP sulfamethoxazole-trimethoprim 800-160 mg Tablet 1 tab PO BID Qty: 19 0RF fluoxetine 20 mg Capsule 40 mg PO DAILY 30 Days Qty: 60 1RF amoxicillin-pot clavulanate 875-125 mg Tablet 1 tab PO BID 7 Days Qty: 13 0RF trazodone 50 mg tablet 50 mg PO BEDTIME Qty: 30 1RF Continued tizanidine 4 mg Tablet 4 mg PO Q8H PRN (Reason: Muscle Spasm) lisinopril 20 mg Tablet 20 mg PO DAILY pantoprazole 20 mg Tablet,Delayed Release (Dr/Ec) 20 mg PO DAILY ibuprofen 200 mg Tablet 200 mg PO Q6H PRN (Reason: Pain) propranolol 20 mg Tablet 20 mg PO BID diclofenac sodium 75 mg tablet,delayed release (DR/EC) 75 mg PO Q12H PRN (Reason: pain) Qty: 20 0RF isosorbide mononitrate 30 mg tablet extended release 24 hr 15 mg PO QAM potassium chloride 10 mEq tablet extended release 10 meq PO DAILY PRN (Reason: swelling) lorazepam 0.5 mg tablet 0.5 mg PO DAILY PRN (Reason: Anxiety) bumetanide 0.5 mg tablet 0.5 mg PO DAILY PRN (Reason: swelling) nitroglycerin 0.4 mg tablet, sublingual See Rx Instructions .ROUTE .COMPLEX Rx Instructions: DISSOLVE ONE TABLET UNDER THE TONGUE EVERY 5 MINUTES NEEDED FOR CHEST PAIN. DO NOT EXCEED A TOTAL OF 3 DOSES IN 15 MINUTES metoprolol succinate 25 mg tablet extended release 24 hr 25 mg PO DAILY ondansetron 4 mg tablet,disintegrating 4 mg PO TID rosuvastatin 20 mg tablet 20 mg PO DAILY Zepbound 5 mg/0.5 mL pen injector 5 mg SUBCUT Q7D Discontinued fluoxetine [Prozac] 20 mg Capsule 20 mg PO DAILY Discharge Order = DC NOW: Discharge Order (Routine); Ordered 12/15/24 Ordered By: Steve Lerner Referrals: [facility] [Outside] Sobia Alvarado FNP [Staff Physician, Unknown] - 12/16/24 2:20 pm Referral Note: Seen for rash on the leg oBbby Sam MD [Primary Care Provider, Family Practice] Discharge Diet: Usual diet Discharge Activity: Resume usual activity Patient Instructions: Altered Mental Status (ED), Opioid Safety, Patient Portal & Ericka Instructions Discharge Attestations NPU Time Spent in Discharge Care*: less than 30 min Specific Discharge Activities: Specific discharge activities: educating patient, discussing with piano case maker/social workers/dc planners and documenting/other paperwork Coding Level of Care Code Acute Code for Chg Fwd Diagnoses Poison quintin dermatitis L23.7 Hypokalemia E87.6 History of ATN Z87.448 Major depressive disorder, recurrent, severe w/o psychotic behavior F33.2 Generalized anxiety disorder F41.1 Methamphetamine use disorder, mild, in early remission, abuse F15.11 Post-traumatic stress disorder, chronic F43.12
[2024-12-15 13:17] VITALS: BP 140/81; PULSE 79; RESP 16; TEMP 36.6; O2SAT 98
[2024-12-15 14:10] VITALS: BP 140/81; PULSE 79; RESP 16; TEMP 36.6; O2SAT 98
== END 2024-12-15 14:43 | disposition home or self-care (01) | DRG 897 ==
LOC: ER 15:42 → ICU 16:29 → NP 12-11 11:37
PROVIDERS: Internal Medicine; Admitting Provider Student in an Organized Health Care Education/Training Program; Emergency Provider Family Medicine; PCP Family Medicine; Visit Provider Psychiatry & Neurology Psychiatry
DX: F15.229 Other stimulant dependence with intoxication, unspecified (principal); N17.9 Acute kidney failure, unspecified; F33.2 Major depressive disorder, recurrent severe without psychotic features; Z59.00 Homelessness unspecified; R45.851 Suicidal ideations; F15.251 Other stimulant dependence with stimulant-induced psychotic disorder with hallucinations; L23.7 Allergic contact dermatitis due to plants, except food; E87.6 Hypokalemia; F41.1 Generalized anxiety disorder; F43.12 Post-traumatic stress disorder, chronic; B19.20 Unspecified viral hepatitis C without hepatic coma; F17.210 Nicotine dependence, cigarettes, uncomplicated; F12.90 Cannabis use, unspecified, uncomplicated; I10 Essential (primary) hypertension; G47.30 Sleep apnea, unspecified; K21.9 Gastro-esophageal reflux disease without esophagitis; E66.9 Obesity, unspecified; Z68.32 Body mass index [BMI] 32.0-32.9, adult; E04.1 Nontoxic single thyroid nodule; Z86.14 Personal history of Methicillin resistant Staphylococcus aureus infection
CPT/HCPCS: 36415; 36416; 51702; 71045; 74176; 80053; 80306; 80307; 81001; 82140; 82962; 83735; 84443; 84484; 85025; 86705; 86706; 86709; 86803; 87040; 87340; 87522; 93005; 96372; 96374; 97165; 99285; J1200; J1650; J2060; J7030; J7120; J7512; J9999; Q0162

== ENCOUNTER 2024-12-21 05:38 | Emergency (ER) | payer MEDICAID, SELFPAY ==
[2021-10-04 11:55] VITALS: BP 109/59; BMI 37.9
--- OUTSIDE RECORDS SUMMARY | 2024-12-21 05:42 | XMS_ITS | Data Portability ---
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 Plan of Treatment Reminders Order Date Submit Date Provider Last Modified By Organization Details Last Modified Time Details Appointments OFFICE VISIT 20 2024 01:20P David WEST, [facility] Not available Not available Not available Lab None recorded. Referral ENT surgery referral 2024 025 [email or web address] Zane Toure MD, [address] , [place], [address], 07/03/2024 11:29:53 Procedures None recorded. Surgeries None recorded. Imaging US, thyroid - 51026 2024 025 [facility], [address], [place], [address], 06/15/2024 17:13:29 Medication Orders Bactrim DS 800 mg-160 mg tablet 2024 025 [facility], [address], [place], [address], 11/27/2024 05:01:55 polymyxin B sulfate 10,000 unit-trim ethoprim 1 mg/mL eye drops 2024 025 [facility], [address], [place], [address], 11/13/2024 08:47:40 prednison e 20 mg tablet [address], [address], [place], [address], 11/13/2024 08:34:02 tizanidin e 4 mg tablet 2024 025 [facility], [address], [place], [address], 05/22/2024 09:57:37 pantopraz ole 40 mg tablet,de layed release [address], [address], [place], [address], 11/13/2024 08:33:58 Patient TargetsNo targets recorded. Patient Instructions Encounter Date Encounter Id Patient Instructions Last Modified By Organization Details Last Modified Time 06/15/2022 [id number] Preventing Depression From Coming Back: Care Instructions [email or web address] Not available 06/15/2022 15:19:18 anxiety disorder : care instructions [email or web address] Not available 06/15/2022 15:19:18 gastroesophageal reflux disease (GERD): care instructions [email or web address] Not available 06/15/2022 15:19:18 high blood press ure: care instructions [email or web address] Not available 06/15/2022 15:22:40 learning about h igh blood pressure [email or web address] Not available 06/15/2022 15:22:40 Reason for Referral ENT Surgery Referral for Chr onic hoarseness Referring Physician: Nery Sam, Family Medicine, Encounter Date: 06/02/2024 Results Created Date Observation Date Name Description Value Unit Range Abnormal Flag Note LastModifiedBy Organization Detail LastModifiedTime 06/16/1906/15/2024 US, thyro id No observ ation record ed. [email or web address] [facility] [address] [place], [address], 06/16/2024 12:23:46 Result Notes None recorded. 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 5 09:48:55 Generali zed anxiety disorder 02129476 Active [address], [address] , [facility] 5 09:48:55 Major depressi ve disorder 777661050 Active [address], [address] , [facility] 5 09:48:55 Gastroes ophageal reflux disease 161548823 Active [address], [address] , [facility] 5 09:48:55 Benign essentia l hyperten jose 6192945 Active [address], [address] , [facility] 5 09:48:55 Goiter 0783371 Active 2024 Nery Sam MD [address] [place] [address], [phone] , [facility] 5 16:07:17 Chronic hoarsene ss 10668244064 05 Active 2024 Nery Sam MD [address] [place] [address], [phone] , [facility] 16:07:49 Problem Notes None recorded. Procedures Surgical History Date Name Laterality Status Provider Name and Address Organization Details Recorded Time Gallbladder Surgery completed [facility] 05/22/2024 09:45:52 procedure on foot completed [facility] 05/22/2024 09:46:02 Imaging Results None recorded. Procedure Notes None recorded. Medical Equipment None Reported. Allergies Allergen ID Allergen Name Allergen Category Reaction Reaction Severity Criticality Documentation Date Start Date Code Code System Note Provider Name and Address Organization Details Recorded Time 23861 Compazine medicatio n other Not available Not available 09/22/2022 51242 6 RxNorm React ion: panic attac k; Comme nt: Recor ded 02/13 2:33P M by Lianet yang Offic e Visit ; Promo iwona; Charlette elliott ce: *; Reaso n: Drug aller gy; ; Not Available [facility] 3 02:23:49 76188 ketamine medicatio n Not available Not available Not available 09/22/2022 6130 RxNorm Comme nt: Recor ded 02/13 2:33P M by Lianet yang, Offic e Visit ; Promo iwona; Signi earl ce: *; Reaso n: Drug aller gy; ; Not Available [facility] 3 02:23:50 Medications Name Sig Start Date Stop Date Status Note LastModified by Organization Details LastModified Time quetiapin e 25 mg tablet TAKE 1 TABLET BY MOUTH UP TO THREE TIMES DAILY NEEDED FOR AGITATIO N/ANXIET Y 05/22 completed Not Available Not Available Not Available fluoxetin e 40 mg capsule TAKE ONE CAPSULE BY MOUTH DAILY for 30 days active Not Available Not Available No t Available cyclobenz aprine 10 mg tablet Take 1 tablet by mouth twice daily as needed 05/22 completed Not Available Not Available Not Available gabapenti n 600 mg tablet TAKE 1 TABLET BY MOUTH TWICE DAILY 05/22 completed Not Available Not Available Not Available trazodone 50 mg tablet TAKE ONE TABLET BY MOUTH at bedtime active Not Available Not Available No t Available tizanidin e 4 mg tablet TAKE [...] t Available prednison e 20 mg tablet take 2 tablets BY MOUTH DAILY for 9 DAYS THEN STOP active Not Available Not Available No t Available isosorbid e mononitra te ER 30 mg tablet,ex tended release 24 hr TAKE 1/2 (ONE-RADHA F) TABLET BY MOUTH ONCE DAILY IN THE MORNING active Not Available Not Available No t Available potassium chloride ER 10 mEq tablet,ex tended release TAKE 1 TABLET BY MOUTH ONCE DAILY NEEDED active Not Available Not Available No t Available sulfameth oxazole 800 mg-trimet hoprim 160 mg tablet TAKE ONE TABLET BY MOUTH TWICE DAILY active Not [...] completed Not Available Not Available Not Available amoxicill in 875 mg-potass ium clavulana te 125 mg tablet TAKE ONE TABLET BY MOUTH TWICE DAILY FOR 7 DAYS active Not Available Not Available No t Available rosuvasta tin 20 mg tablet TAKE 1 TABLET BY MOUTH ONCE DAILY active Not Available Not Available No t Available potassium acetate active Not Available Not Available Not Available aspirin active Not Available Not Avail able Not Available hydroxyzi ne HCl two times daily, as needed 05/22 completed Recorded 08/17/19 2:51PM by Nery Sam MD, Office Visit; Refill Quantity : 60; Tablet; Not Available Not Available Not Available bumetanid e active Not Available Not Available Not Available lisinopri l daily 05/22 completed Recorded 08/17/19 22 2:52PM by Nery Sam MD, Office Visit; Refill Quantity : 90; Tablet; Not Available Not Available Not Available Prozac daily 05/22 completed 0; Recorded 02/14/20 22 2:44PM by Lianet goldman, Office Visit; Not [...] Address Organization Details Last Updated DateTime 5 54106.1 g 33.6 kg/m2 162.56 cm 96 % 96 % 94 /min 16 /min 98.2 [degF] 148/80 mm[Hg] Miriamnisha Vásquez [facility] 5 09:47:58 Date Recorded Body height Body mass index (BMI) Body weight Heart rate Systolic And Diastolic Provider Name and Address Organization Details Last Updated DateTime 06/02/2024 162.56 cm 34.3 kg/m2 71152.47 g 70 /min 151/100 mm[Hg] LIANET PEGUERO [facility] 5 15:30:53 Date Recorded Body weight Body mass index (BMI) Body height Oxygen saturation Oxygen saturation in Arterial blood by Pulse oximetry Heart rate Body temperature Systolic And Diastolic Provider Name and Address Organization Details Last Updated DateTime 3 706330. 06 g 39.1 kg/m2 162.56 cm 96 % 96 % 114 /min 98.1 [degF] 142/80 mm[Hg] LESA ORDAZ [facility] 3 14:48:40 Date Recorded Body height Body mass index (BMI) Body weight Body temperature Heart rate Oxygen saturation Oxygen saturation in Arterial blood by Pulse oximetry Systolic And Diastolic Provider Name and Address Organization Details Last Updated DateTime 5 162.56 cm 33.3 kg/m2 73575.6 2 g 98.4 [degF] 108 /min 95 % 95 % 148/84 mm[Hg] Brisa Gibbons [facility] 5 08:41:24 Social History Question Answer Notes LastModified by Organizat ion Details LastModified Time Tobacco Smoking Status Former Smoker pepee Brisa Shai [facility] 11/13/2024 08:34:41 Which Illicit Or Recreational Drugs Have You Used? Marijuana Information not available 06/15/2022 What Was The Date Of Your Most Recent Tobacco Screening? 11/13/2024 [email or web address] Information not available 11/13/2024 Sex: Unknown Functional Status Question Answer Note LastModified by Organizat ion Details LastModified Time Do you use any illicit or recreational drugs? Yes [email or web address] Information not available 06/15/2022 What is your level of alcohol consumption? None [email or web address] Information not available 06/15/2022 Mental Status None recorded. Family History Nothing Reported. Medical History No medical history recorded. Gynecological HistoryNo gynecological history recorded. Obstetrics History GPAL:G 0 P 0 0 0 0 Immunizations Vaccine Type Date Status Note Provider Nam e and Address Organization Details Recorded Time Tdap 0 completed Not Available [facility] 06/15/2024 12:41:21 Hep A, adult 9 completed Not Available [facility] 06/15/2024 12:41:21 Tdap 1 completed Not Available [facility] 06/15/2024 12:41:21 COVID-19, mRNA, LNP-S, PF, 100 mcg/0.5mL dose or 50 mcg/0.25mL dose 1 completed Not Available [facility] 06/15/2024 12:41:21 Influenza, MDCK, trivalent, PF 5 completed Not Available [facility] 06/15/2024 12:41:21 COVID-19, mRNA, LNP-S, PF, 50 mcg/0.5 mL 5 completed Not Available [facility] 06/15/2024 12:41:21 Influenza, split virus, trivalent, preservative 0 completed Not Available [facility] 09/22/2022 02:32:38 Past Encounters Encounter ID Performer Location Encounter Start Date Encounter Closed Date Diagnosis/Indication Diagnosis SNOMED-CT Code Diagnosis ICD10 Code Diagnosis IMO Codes Diagnosis Note [id number] Nery Sam MD [facility] ([facility]) [address] [place] [phone] 06/15/2022 14:23:52 06/20/2022 10:16:40 Generalized anxiety disorder 79628468 F41.1 Major depr essive disorder 139576266 F32.9 Gastroesop hageal reflux disease 254333094 K21.9 Benign ess ential hypertension 5549253 I10 [id number] BRENDEN FRANCIS [facility] ([facility]) [address] [place] [phone] 05/22/2024 09:35:07 05/22/2024 10:39:38 Strain of left trapezius muscle 1666512549 5348228 S29.012A Discussed to take 400mg ibuprofen twice a day for next 5 days with food.Use tizanidine as prescribed .Apply a heating pad for 10 minutes every 2 hours while awake. Perform slow stretches 2 times a day. Lymphadenopathy 29506039 R59.0 Pt scheduled appt to f/u with PCP regarding swelling. [id number] Nery Sam MD [facility] ([facility]) [address] [place] [phone] 06/02/2024 15:18:00 06/02/2024 16:19:41 Goiter 7166218 E04.9 Chronic hoarseness 34180 23394 105 R49.0 Generalize d anxiety disorder 73518287 F41.1 [id number] Nery Sam MD [facility] ([facility]) [address] [place] [phone] 5 06/15/2024 12:40:56 06/16/2024 10:48:36 [id number] BRENDEN FRANCIS [facility] ([facility]) [address] [place] [phone] 5 11/13/2024 08:28:21 11/13/2024 17:36:35 Acute infectious conjunctivitis 634459516 H10.32 [id number] counseled on dx. warm compresses and keep eyelids clean. counseled on limiting spread of illness. will start topical abx. Return to office with no improvemen t or any problems. Cellulitis of left buttock 8874302700 7107 L03.317 225894 Discussed use of warm compress to the [...] Guarantor Name 07/10/2024 1 *SELF PAY* Nieves Wheeler 06/03/2024 1 [facility] (MEDICAID REPLACEMENT - HMO) [facility] Marianne Wheeler [id number] Marianne Wheeler 12/15/2024 1 [facility] (MEDICAID HMO) Marianne Wheeler [id number] Marianne Wheeler 12/15/2024 [place] Marianne Wheeler [id number] Marianne Wheeler 12/15/2024 [facility] (MEDICAID HMO) Marianne Wheeler [id number] Marianne Wheeler Notes Date Note Type Note Provider Name and Address Organization Details Recorded Time 06/15/2022 text/html Generalized Anxi ety DisorderReported by PatientHPIFor associated symptoms, patient reportsdifficulty controlling worry,excess anxiety,chest pain, andhigh irritability. For severity, patient reportssevere.She and daughters are having some issues. Has been having a hard time at home with the kids.Struggling with mental health. Nery Sam MD [address] [place] [address], [phone], [facility], Ashlie 06/15/2022 15:23:04 05/22/2024 text/html Joint PainReport ed by PatientROS as noted in the HPI walk in patientpatient is here today for neck pain that started over a month ago. It radiates into her left shoulder. Pain worsens with turning head and using left arm. States she was released from senior care last month and has not been evaluated for this. Also states her anterior lower neck started to swell. Feels well otherwise. DEAN JIMENES, [facility] [address] [place], [address], [facility], Kayla. 05/22/2024 10:39:16 11/13/2024 text/html ROS as noted in the HPI walk in ptPts left eye is red and itchy that started yesterday. States she has some drainage. no recent cough/cold. Also states she has a tender small area to her left buttock. Concerned about an abscess because she has hx of MRSA DEAN LAMELL, [employer] [address] [place], [address], [facility], Kayla. 11/13/2024 17:31:33 OBGyn Episode No OBEpisode recorded.
[2024-12-21 05:45] VITALS: BMI 30.9
[2024-12-21 05:51] VITALS: BP 171/111; PULSE 102; RESP 18; TEMP 36.8; O2SAT 100
--- NOTE | 2024-12-21 05:57 | W.ED.NAVMDI ---
HPI - Nausea/Vomiting/Diarrhea General: Chief complaint: Nausea/Vomiting/Diarrhea Stated complaint: N/V x 1 week Time Seen by Provider: 12/21/24 05:54 Source: patient Mode of arrival: ambulatory Limitations: no limitations History of Present Illness: 41-year-old female who was recently discharged here after polysubstance abuse visualized been in the hospital and then to the psych lam was discharged on the states that since then she has not been feeling well states she has been having some nausea along with vomiting. Patient was here today with her her daughter who was in the ER for vomiting as well. She states that she had felt like she is brenda vomit as well and needed something for nausea she denies any pain denies any fevers. Related Data Home Medications ?Medication ?Instructions ?Recorded ?Confirmed ibuprofen 200 mg tablet 200 mg PO Q6H PRN Pain 05/25/24 12/09/24 lisinopril 20 mg tablet 20 mg PO DAILY 05/25/24 12/09/24 pantoprazole 20 mg tablet,delayed 20 mg PO DAILY 05/25/24 12/09/24 release propranolol 20 mg tablet 20 mg PO BID 05/25/24 12/09/24 tizanidine 4 mg tablet 4 mg PO Q8H PRN Muscle Spasm 05/25/24 12/09/24 bumetanide 0.5 mg tablet 0.5 mg PO DAILY PRN swelling 12/09/24 12/09/24 isosorbide mononitrate 30 mg 15 mg PO QAM 12/09/24 12/09/24 tablet,extended release 24 hr lorazepam 0.5 mg tablet 0.5 mg PO DAILY PRN Anxiety 12/09/24 12/09/24 metoprolol succinate 25 mg 25 mg PO DAILY 12/09/24 12/09/24 tablet,extended release 24 hr nitroglycerin 0.4 mg sublingual See Rx Instructions .Route .COMPLEX 12/09/24 12/09/24 tablet ondansetron 4 mg disintegrating 4 mg PO TID 12/09/24 12/09/24 tablet potassium chloride 10 mEq 10 meq PO DAILY PRN swelling 12/09/24 12/09/24 tablet,extended release rosuvastatin 20 mg tablet 20 mg PO DAILY 12/09/24 12/09/24 tirzepatide (weight loss) 5 mg/0.5 5 mg SUBCUT Q7D 12/09/24 12/09/24 mL subcutaneous pen injector (Zepbound) Previous Rx's ?Medication ?Instructions ?Recorded diclofenac sodium 75 mg 75 mg PO Q12H PRN pain #20 tabs 07/13/24 tablet,delayed release amoxicillin 875 mg-potassium 1 tab PO BID 7 days #13 tabs 12/15/24 clavulanate 125 mg tablet fluoxetine 20 mg capsule 40 mg (2 x 20 mg) PO DAILY 30 days 12/15/24 #60 caps prednisone 20 mg tablet 40 mg (2 x 20 mg) PO DAILY #18 tabs 12/15/24 sulfamethoxazole 800 1 tab PO BID #19 tabs 12/15/24 mg-trimethoprim 160 mg tablet trazodone 50 mg tablet 50 mg PO BEDTIME #30 tabs 12/15/24 promethazine 25 mg tablet 25 mg PO TID PRN nausea and 12/21/24 vomiting #14 tabs Allergies Allergy/AdvReac Type Severity Reaction Status Date / Time ketamine Allergy ADR-Anxiety Verified 05/25/24 10:33 prochlorperazine (From Allergy ADR-Agitate Verified 05/25/24 10:33 Compazine) d Review of Systems GI: Reports: vomiting PFSH ED PFSH: Medical History Nicotine dependence, unspecified, uncomplicated Cannabis dependence, uncomplicated Methamphetamine use disorder, severe Major depressive disorder, recurrent, in partial remission Methamphetamine use disorder, mild, in early remission, abuse Following information retrieved/edited from Behavior Assessment Report completed on 06/13/21: she reports a pattern of methamphetamine use leading to clinically significant impairment or distress, as manifested by recurrent stimulant use resulting in a failure to fulfill major role obligations at work, school, or home; continued stimulant use despite having persistent or recurrent social or interpersonal problems caused or exacerbated by the effects of the stimulant; stimulant use is continued despite knowledge of having a persistent or recurrent physical or psychological problem that is likely to have been caused or exacerbated by the stimulant. Hx MRSA infection Hx of primary hypertension History of anxiety History of depression Hx of heat stroke Migraine Sleep apnea Gastroesophageal reflux History of kidney stones History of vaginal delivery History of fracture Bipolar disorder PTSD (post-traumatic stress disorder) History of methamphetamine abuse Substance abuse Olecranon bursitis, left elbow Surgical History Hx of dilation and curettage Family History Father CAD (coronary artery disease) Other Cancer Dementia Hypertension Major depressive disorder, recurrent, in partial remission Social History Smoking and tobacco/nicotine status: current every day tobacco/nicotine user cigarettes Packs smoked per day: 0.5 Years cigarettes smoked: 30 Quit status (tobacco/nicotine): not considering quitting Second hand smoke exposure: No Alcohol intake: never Substance/Drug Use: former Date of last use: 2 months from pot and 6 months from meth Adopted: No Caregiver/support person: No Lives independently: Yes Household members: significant other and children Housing: Manufactured/Mobile home Marital status: Number of children: 2 Number of grandchildren: 0 Highest education level completed: GED or Equivalent service: No Current occupational status: disabled Current occupation: trying to get disability Pets and animals: Yes Pets & animals: cat(s), dog(s) and farm animals Farm Animals: other Leisure activites: music and other Leisure activities details: watch TV Sexually active: No Do you think of yourself as: Straight/Heterosexual Current gender identity: Female Rach/Restorationism: Catholic Special rach needs: No Agree to transfusion: Yes Female Reproductive History: Para: 2 Spontaneous abortions: Yes Physical Exam Const: COMMON NORMALS: no acute distress, patient oriented x3 and healthy appearing HENMT: COMMON NORMALS: normocephalic and atraumatic HEAD & SCALP: normocephalic and atraumatic Neck/C-Spine: COMMON NORMALS: full ROM and supple Chest: COMMONS NORMALS: normal inspection of the chest Resp: COMMON NORMALS: normal respiratory effort, No retractions, No use of accessory muscles and clear to auscultation bilaterally AUSCULTATION: clear to auscultation bilaterally Cardio: COMMON NORMALS: regular rhythm and No murmurs present (Cardio) RATE: tachycardic RHYTHM: regular rhythm GI: COMMON NORMALS: Normal to inspection, nondistended, normoactive bowel sounds present, Soft to palpation, non-tender and no masses PALPATION: Yes Soft to palpation Extremity: COMMON NORMALS: normal to inspection and full ROM Neuro: COMMON NORMALS: patient oriented x3, moves all extremities and no focal motor deficits Psych: COMMON NORMALS: mental status grossly normal, Normal thought process present and cooperative THOUGHT PROCESS: Normal thought process present Skin: COMMON NORMALS: no rashes or lesions noted and no wounds GENERAL SKIN EXAM: no rashes or lesions noted Course Vital Signs: Vital signs: Vital Signs Temperature 98.2 F 12/21/24 05:51 Pulse Rate 102 H 12/21/24 05:51 Respiratory Rate 18 12/21/24 05:51 Blood Pressure 171/111 12/21/24 05:51 Pulse Oximetry 100 12/21/24 05:51 Oxygen Delivery Me thod Room Air 12/21/24 05:51 MDM - Nausea/Vomiting/Diarrhea Medical Decision Making Patient considered nausea and vomiting differential includes gastroenteritis, small bowel obstruction. Patient is well-appearing here abdominal exam here is benign with no signs of acute abdomen. Blood work including electrolytes and white counts normal no signs of infection likely gastroenteritis she feels much improved here after Ativan Zofran and fluids she is able to tolerate p.o. will prescribe her Phenergan for home she is follow-up her PCP and return if worsening I did go over her labs with her she understands agrees to plan Medical Records I reviewed the patient's medical records. Lab Data I reviewed the patient's lab results. 12/21/24 06:46 12/21/24 06:00 Laboratory Results WBC 7.45 10^3/uL (3.29-11.43) 12/21/24 06:46 Corrected WBC Cancelled 12/21/24 06:00 RBC 3.66 10^6/uL (3.85-5.65) L 12/21/24 06:46 Hgb 10.90 g/dL (11.27-16.99) L 12/21/24 06:46 Hct 33.1 % (36-47) L 12/21/24 06:46 MCV 90.4 fl (85-98) 12/21/24 06:46 MCH 29.8 pg (27-33) 12/21/24 06:46 MCHC 32.9 g/dL (30-55) 12/21/24 06:46 RDW 15.9 % (12.1-15.1) H 12/21/24 06:46 Plt Count 308 10^3/cmm (157-399) 12/21/24 06:46 MPV 9.6 fL (7.4-10.4) 12/21/24 06:46 Gran % Cancelled 12/21/24 06:00 Neut % (Auto) 58.2 % 12/21/24 06:46 Lymph % (Auto) 27.4 % 12/21/24 06:46 [place] % (Auto) 8.6 % 12/21/24 06:46 Eos % (Auto) 4.8 % 12/21/24 06:46 Baso % (Auto) 0.7 % 12/21/24 06:46 Neut # (Auto) 4.34 10^3/uL (1.8-7.7) 12/21/24 06:46 Lymph # (Auto) 2.0 10^3/uL (0.8-4.8) 12/21/24 06:46 [place] # (Auto) 0.6 10^3/uL (0.2-0.9) 12/21/24 06:46 Eos # (Auto) 0.4 10^3/uL (0.0-0.8) 12/21/24 06:46 Baso # (Auto) 0.1 10^3/uL (0.0-0.1) 12/21/24 06:46 Absolute Gran (auto) Cancelled 12/21/24 06:00 Nucleated RBC % (auto) 0 % 12/21/24 06:46 Nucleated RBCs # 0.0 /100WBC 12/21/24 06:46 Sodium 136 mmol/L (136-145) 12/21/24 06:00 Potassium 3.5 mmol/L (3.5-5.1) 12/21/24 06:00 Chloride 99 mmol/L (98-107) 12/21/24 06:00 Carbon Dioxide 24 mmol/L (22-29) 12/21/24 06:00 Anion Gap 16.5 (5-19) 12/21/24 06:00 BUN 12 mg/dL (6-20) 12/21/24 06:00 Creatinine 0.6 mg/dL (0.5-0.9) 12/21/24 06:00 GFR Calculation 106.7 mL/min (90-130) 12/21/24 06:00 Glucose 103 mg/dL (65-115) 12/21/24 06:00 Calculated Osmolality 282 mOsm/kg (285-295) L 12/21/24 06:00 Calcium 9.4 mg/dL (8.5-10.5) 12/21/24 06:00 Total Bilirubin 0.7 mg/dL (0.15-1.2) 12/21/24 06:00 AST 21 U/L (0-32) 12/21/24 06:00 ALT 22 U/L (0-33) 12/21/24 06:00 Alkaline Phosphatase 67 U/L (35-105) 12/21/24 06:00 Total Protein 6.9 g/dL (6.6-8.7) 12/21/24 06:00 Albumin 4.3 g/dL (3.5-5.2) 12/21/24 06:00 Globulin 2.6 g/dL (1.3-4.6) 12/21/24 06:00 Lipase 68 U/L (13-60) H 12/21/24 06:00 Urine Color Yellow (Yellow) 12/21/24 05:59 Urine Appearance Clear (CLEAR) 12/21/24 05:59 Urine pH 7.0 (5-7) 12/21/24 05:59 Ur Specific [place] 1.019 (1.005-1.030) 12/21/24 05:59 Urine Protein 1+ (Negative) A 12/21/24 05:59 Urine Glucose (UA) Negative (Normal) 12/21/24 05:59 Urine Ketones Negative (Negative) 12/21/24 05:59 Urine Blood 2+ (Negative) A 12/21/24 05:59 Urine Nitrate Negative (Negative) 12/21/24 05:59 Urine Bilirubin Negative (Negative) 12/21/24 05:59 Urine Urobilinogen 1.0 mg/dL (Negative) 12/21/24 05:59 Ur Leukocyte Esterase Negative (Negative) 12/21/24 05:59 Urine RBC 21-50 /hpf (0-2) H 12/21/24 05:59 Urine WBC 0-5 /hpf (0-5) 12/21/24 05:59 Ur Squamous Epith Cells 6-10 /hpf (0-5) 12/21/24 05:59 Amorphous Sediment Not Reportable 12/21/24 05:59 Urine Bacteria None seen /hpf (NONE) 12/21/24 05:59 Hyaline Casts 2.05 /lpf 12/21/24 05:59 No radiology studies performed this visit Discharge Plan Discharge Patient Disposition: Home Clinical Impression: Vomiting Qualifiers: Vomiting type: unspecified Nausea presence: with nausea Qualified Code(s): R11.2 - Nausea with vomiting, unspecified Condition: Stable Prescriptions: New promethazine 25 mg tablet 25 mg PO TID PRN (Reason: nausea and vomiting) Qty: 14 0RF No Action tizanidine 4 mg Tablet 4 mg PO Q8H PRN (Reason: Muscle Spasm) lisinopril 20 mg Tablet 20 mg PO DAILY pantoprazole 20 mg Tablet,Delayed Release (Dr/Ec) 20 mg PO DAILY ibuprofen 200 mg Tablet 200 mg PO Q6H PRN (Reason: Pain) propranolol 20 mg Tablet 20 mg PO BID diclofenac sodium 75 mg tablet,delayed release (DR/EC) 75 mg PO Q12H PRN (Reason: pain) Qty: 20 0RF isosorbide mononitrate 30 mg tablet extended release 24 hr 15 mg PO QAM potassium chloride 10 mEq tablet extended release 10 meq PO DAILY PRN (Reason: swelling) lorazepam 0.5 mg tablet 0.5 mg PO DAILY PRN (Reason: Anxiety) bumetanide 0.5 mg tablet 0.5 mg PO DAILY PRN (Reason: swelling) nitroglycerin 0.4 mg tablet, sublingual See Rx Instructions .ROUTE .COMPLEX Rx Instructions: DISSOLVE ONE TABLET UNDER THE TONGUE EVERY 5 MINUTES NEEDED FOR CHEST PAIN. DO NOT EXCEED A TOTAL OF 3 DOSES IN 15 MINUTES metoprolol succinate 25 mg tablet extended release 24 hr 25 mg PO DAILY ondansetron 4 mg tablet,disintegrating 4 mg PO TID rosuvastatin 20 mg tablet 20 mg PO DAILY Zepbound 5 mg/0.5 mL pen injector 5 mg SUBCUT Q7D prednisone 20 mg Tablet 40 mg PO DAILY Qty: 18 0RF Rx Instructions: Take 2 tablets daily for 9 days then STOP sulfamethoxazole-trimethoprim 800-160 mg Tablet 1 tab PO BID Qty: 19 0RF fluoxetine 20 mg Capsule 40 mg PO DAILY 30 Days Qty: 60 1RF amoxicillin-pot clavulanate 875-125 mg Tablet 1 tab PO BID 7 Days Qty: 13 0RF trazodone 50 mg tablet 50 mg PO BEDTIME Qty: 30 1RF Discharge Orders: Discharge ED (Routine); Ordered 12/21/24 Ordered By: Janet Webster Referrals: Bobby Sam MD [Primary Care Provider, [facility]] - 1-3 days Discharge Diet: Advance as tolerated Discharge Activity: Resume usual activity Patient Instructions: Acute Nausea and Vomiting (ED) Print Language: Azeri Coding Level of Care Code ED Personal Lines Insurance Agent for Josephine Rehman
[2024-12-21 06:10] LABS: Glucose Urine UA Negative (Normal); Nitrate Urine Negative (Negative); Specific Gravity, Urine 1.019 (1.005-1.030)
[2024-12-21] MEDS: ondansetron 2 mg/ML SDV 2 mL 4 MG IVP (06:12)
[2024-12-21] MEDS: LORazepam 2 mg/mL INJ 1 mL (06:13)
[2024-12-21 06:15] LABS: Add Urine Microscopic? YES
[2024-12-21 06:25] LABS: Alanine Aminotransferase 22 U/L (0-33); Albumin Level 4.3 g/dL (3.5-5.2); Alkaline Phosphatase 67 U/L (35-105); Blood Urea Nitrogen 12 mg/dL (6-20); Calcium 9.4 mg/dL (8.5-10.5); Carbon Dioxide 24 mmol/L (22-29); Chloride 99 mmol/L (98-107); Creatinine Clr Calc Pharmacy 118.5288; Globulin 2.6 g/dL (1.3-4.6); Glucose 103 mg/dL (65-115); Lipase 68 U/L (13-60); Osmolality Calculated 282 mOsm/kg (285-295); Sodium 136 mmol/L (136-145); Total Protein 6.9 g/dL (6.6-8.7)
[2024-12-21 06:31] LABS: Anion Gap 16.5 (5-19); Aspartate Amino Transferase 21 U/L (0-32); Potassium 3.5 mmol/L (3.5-5.1)
[2024-12-21 06:48] LABS: Hematocrit 33.1 % (36-47); Hemoglobin 10.90 g/dL (11.27-16.99); Mean Corpuscular HGB Conc 32.9 g/dL (30-55); Mean Corpuscular Hemoglobin 29.8 pg (27-33); Mean Corpuscular Volume 90.4 fl (85-98); Nucleated Red Blood Cells % 0 %; Platelet Count 308 10^3/cmm (157-399); Red Blood Count 3.66 10^6/uL (3.85-5.65); White Blood Count 7.45 10^3/uL (3.29-11.43)
[2024-12-21 07:06] VITALS: BP 107/77; PULSE 90; RESP 16; O2SAT 92
== END 2024-12-21 07:07 | disposition home or self-care (01) ==
PROVIDERS: Emergency Provider Emergency Medicine; PCP Family Medicine
DX: R11.2 Nausea with vomiting, unspecified (principal); F17.210 Nicotine dependence, cigarettes, uncomplicated
CPT/HCPCS: 80053; 81001; 83690; 85025; 87086; 96361; 96374; 99284; J2060; J2405; J7030